=== PATIENT | female | born 1985 | race Caucasian/White ===

== ENCOUNTER 2017-06-01 06:06 | Day surgery (SDC) | payer MEDICAID, SELFPAY ==
[2017-06-01] VITALS (7 sets, daily range): BP systolic 92–121; BP diastolic 65–82; PULSE 55–96; RESP 16–18; TEMP 36.7–37.1; O2SAT 98–100; BMI 17.9
[2017-06-01 06:55] LABS: Hematocrit 38.9 % (37-47); Hemoglobin 13.1 g/dl (12.0-15.0); Mean Corp Hgb Conc 33.7 g/gl (32-36); Mean Corpuscular Hgb 31.3 pg (27.0-32.0); Mean Corpuscular Volume 92.8 fL (81-99); Mean Platelet Vol. 9.3 fl (6.2-12.0); Platelet Count 233 K/mm3 (150-450); RBC Distribution Width CV 12.2 % (11.6-14.6); RBC Distribution Width SD 40.8 fl (35.1-43.9); Red Blood Count 4.19 M/mm3 (4.2-5.4)
[2017-06-01 06:55] LABS: Internal QC Validated? YES +Cl - CLEAR BKGD; Pregnancy, Urine Negative Negative
[2017-06-01 06:58] LABS: Scan Indicated on CBC? Y/N NO
--- NOTE | 2017-06-01 07:30 | FALS_PTH ---
PATIENT: DEB MALDONADO LOC: [facility] U#:[id number] AGE/SX: 31/F ROOM: RE06/01/[address]: Dr. Elsa Fry MD : 1985 BED: DIS: 06/01/2017 SPEC #: [id number] RECD: 06/01/17 11:35 STATUS: NEFTALI UMER #: [id number] CAS: 06/01/17 07:[address]: Elsa Fry DEPT: SURGICAL PATHOLOGY RECD BY: Natan Pruett ENTERED: 06/01/17 12:48 SP TYPE: FALL TUBES OTHR DR: Fuentes Mariee III, MD Tissues: Fallopian tube Procedures: Surgery Specimen Level IV HEADER OPERATION: Laparoscopic salpingectomy, bilateral PRE-OP DIAGNOSIS: Sterilization TISSUE SUBMITTED: Bilateral fallopian tubes MICROSCOPIC DIAGNOSIS Right and left fallopian tubes, bilateral salpingectomies: Complete cross-sections of fallopian tubes with no pathologic change. Benign paratubal cysts. AM:yury 06/02/17 MICROSCOPIC DESCRIPTION Slides are reviewed. GROSS DESCRIPTION Received is one container labeled with the patient's name and designated bilateral fallopian tubes. The specimen consists of two fallopian tubes with an average length of 6 cm and has an average diameter of 0.7 cm. Both fallopian tubes have normal fimbriated ends. No mass lesions are identified. One fallopian tube is inked in blue ink. Also present free in the container are what appear to be fragments of fallopian tubes and smooth, glistening cysts containing clear fluid. The cysts range in size from 0.8 to 1.2 cm. The fragments of fallopian tubes range in size from 1 to 3 cm in greatest dimension. Field Hockey Coach sections are submitted in one cassette. / AM:yury 06/01/17 TC:5 CPT: 70360 x2
--- NOTE | 2017-06-01 07:45 | PCM.DC.TUB ---
Discharge Diet: No Restrictions - Increase fluid intake for the next 48 hours. Discharge Activity: Return to Normal Activity, May Drive - when you are no longer taking pain/narcotic meds., May Shower, May Take a Tub Bath - in 7 days Return to work on:: 06/03/17 May shower in (days): 1 May resume sexual activity in: 1 week Additional Activity Instructions:: Ambulate often the next week after surgery. Nothing in the vagina for 5 days. Call your doctor if your incision/area has: Continuous Slow Oozing, Sudden Increased Bleeding, Increased Pain/ Swelling, Increased Redness, Foul Smelling Discharge Call your doctor if you observe: Fever of 101 or Higher Cleanse incision/area with: Soap & Water, - - Your incisions have skin glue that can get wet. Leave it on for at least 10 days Allergies/Adverse Reactions: Allergies bacitracin [From Neosporin ([id number]-yix-[id number])] Allergy (Verified 05/25/17 08:42) Rash neomycin [From Neosporin (hxz-prp-xhing)] Allergy (Verified 05/25/17 08:42) Rash Penicillins Allergy (Verified 05/25/17 08:41) Hives polymyxin B [From Neosporin (ufq-mtw-yecjw)] Allergy (Verified 05/25/17 08:42) Rash hydrocodone [From Vicodin] Adverse Reaction (Verified 05/25/17 08:42) Vomiting BAND AID Allergy (Uncoded 05/25/17 08:42) Rash Medications to take at Discharge Ibuprofen 200 mg PO PRN PRN 05/25/17 Primary Care Physician: Fuentes Mariee III, MD [Primary Care Provider] - Please Follow Up With: Elsa Fry MD - [phone] When: as scheduled or as needed
[2017-06-01] MEDS: Bupivacaine Mpf 0.5% 30 ML VIAL (07:55)
--- NOTE | 2017-06-01 08:21 | OP.PCM_ITS ---
Report of Operation Date of Procedure: 06/01/17 Pre-Operative Diagnosis: sterilization request Post-Operative Diagnosis: same Surgery/Procedure Performed:: Laparoscopic bilateral salpingectomy Description of Surgical Findings:: Normal-appearing uterus tubes and ovaries experimental mechanic: None Type of Anesthesia:: General Anesthesiologist: Arias Perdomo Special Medications: None Specimen's removed: Bilateral tubes Drains: None Estimated Blood Loss (mL): 10cc Fluids Replaced: 1100cc Description of Procedure: The patient was taken to the operating room where she was prepped and draped in the dorsolithotomy position. A weighted speculum was placed in the vagina and the anterior lip of the cervix was grasped with a tenaculum. The Judy uterine manipulator was placed and the remainder of the instruments were removed from the vagina. Attention was turned to the abdomen. All port sites were infiltrated with 0.5% Marcaine before skin incisions were made. A 5 mm intraumbilical incision was made. The anterior abdominal wall was tented up with 2 towel clamps while a 5 mm blade less trocar and sleeve were directly inserted. Intraperitoneal placement was confirmed with the laparoscope. The pneumoperitoneum was created and the underlying abdominal contents were intact. The patient was placed in Trendelenburg. A left lower quadrant port was placed under direct visualization lateral to the inferior epigastric vessels. The alligator grasper was placed through the midline approximately 3 cm above the symphysis pubis. The bowel was swept away and the above findings were noted. The LigaSure device was used to clamp seal and transect the antimesenteric portions of the right tube to the cornual insertion of the uterus. The tube was amputated from the uterus and the pedicles were all confirmed to be hemostatic. The same procedure was performed on the contralateral side. The specimens were brought out through a 5 mm port. The pedicles were again examined and found to be hemostatic. The lateral port was removed under direct visualization and no active bleeding was noted. The pneumoperitoneum was released. The skin incisions were closed with Monocryl suture in a subcuticular fashion and skin glue . The vaginal instruments were removed and the vaginal sweep was completed by me. The procedure was performed by me with assistance other than as dictated above. All sponge and needle counts were correct and the patient was taken to the recovery room in stable condition. Grafts/Implants Used: None - Complications None - Admit VTE Documentation VTE Present on Admission: No VTE Mechan Device Prophylaxis: SCD's VTE Pharm Prophylaxis ordered?: No Reason prophylaxis not ordered:: Procedure Not Indicated
== END 2017-06-01 09:33 | disposition home or self-care (01) ==
LOC: SDC 06:07 → AC 06:09
PROVIDERS: Anesthesiology; Family Provider Family Medicine; PCP Family Medicine; Visit Provider Obstetrics & Gynecology
PROC: (CPT 58661; principal; 2017-06-01 07:15)
DX: Z30.2 Encounter for sterilization (principal); N83.8 Other noninflammatory disorders of ovary, fallopian tube and broad ligament; D64.9 Anemia, unspecified; F17.210 Nicotine dependence, cigarettes, uncomplicated
CPT/HCPCS: 58661; 36415; 81025; 85027; 88302; 88305; J7120; J2405

== ENCOUNTER 2019-12-09 11:50 | Emergency (ER) | payer MEDICAID, SELFPAY ==
[2019-12-09 11:52] VITALS: BP 137/96; PULSE 64; RESP 16; TEMP 36.6; O2SAT 100; BMI 17.8
--- NOTE | 2019-12-09 13:27 | CT_ITS ---
STUDY: CT BRAIN WITHOUT CONTRAST REASON FOR EXAM: Female, 34 years old. CHRONIC LANDIS/WORSE WITH CYCLE RADIATION DOSAGE (If Supplied By Facility): CTDIvol = ( 60.81 ) mGy, DLP = ( 1044.28 ) mGycm TECHNIQUE: Transaxial CT imaging of the brain was performed without administration of intravenous contrast material. Individualized dose optimization techniques were used for this CT. COMPARISON: No relevant priors. FINDINGS: Normal soft tissue structures. Normal calvarium. Normal size ventricles and extra-axial spaces for the patient''s age. Normal white matter tracts of the cerebral hemispheres. Normal basal ganglia and thalami. Normal brainstem. Normal cerebellum. There is no intracranial hemorrhage. There are no findings of an acute ischemic infarction. Normal visualized paranasal sinuses. CT/Brain/Head without Contrast IMPRESSION: Normal unenhanced CT scan of the brain. Electronically Signed: Tae Hickman, at 14:59 EDT , Service support ,
[2019-12-09] MEDS: 0.9% Normal Saline 1,000 ML 999 ML IV (13:56)
[2019-12-09] MEDS: DiphenhydrAMINE 50 MG/ML Syringe IV (13:56)
[2019-12-09] MEDS: proCHLORPERazine 10 MG/2 ML Vial IV (13:57)
[2019-12-09] MEDS: Ketorolac 15 MG/ML Vial IV (13:57)
--- NOTE | 2019-12-09 14:06 | ED.VIS.GEN ---
History of Present Illness Chief Complaint: Headache Informant: Patient Onset: Days Context: Gradual Onset Timing: Continuous Current Severity: Moderate Maximum Severity: Moderate Narrative: Patient is a 34-year-old female with medical history significant for chronic pelvic pain who follows with [facility], recently started on control, who presents to the emergency department headache. Patient states she is had a dull headache for the past 3 days. She states that she does get headaches like this, but is never been this significant. She has been taking Midol with no improvement. She states that she has been nauseated. She describes photophobia and phonophobia. She denies any fevers or chills. She is not found anything that improve the symptoms. She states she is otherwise been in her normal state of health. Prior similar symptoms: Yes Recent Illness/Hospitalization: No Past Medical History - Allergies and Home Meds Allergies/Adverse Reactions: Allergies bacitracin [From Neosporin (wgv-yui-whbmv)] Allergy (Verified 12/09/19 11:56) Rash neomycin [From Neosporin (daa-grw-rnewk)] Allergy (Verified 12/09/19 11:56) Rash Penicillins Allergy (Verified 12/09/19 11:56) Hives polymyxin B [From Neosporin (ujf-uvd-vaekh)] Allergy (Verified 12/09/19 11:56) Rash hydrocodone [From Vicodin] Adverse Reaction (Verified 12/09/19 11:56) Vomiting BAND AID Allergy (Uncoded 12/09/19 11:56) Rash Primary Care Physician: Fuentes Mariee III, MD [[facility]] - Prior records reviewed: Yes Past Medical History: None Surgical History: noncontributory Smoking Status: Current every day smoker Review of Systems General: Denies: Chills, Fever, Sweats Eyes: Denies: Visual changes - bilaterally, Diplopia ENT: Denies: Rhinorrhea, Sore throat Cardiovascular: Denies: Chest pain, Palpitations Respiratory: Denies: Dyspnea, Cough, Dyspnea on exertion Gastrointestinal: Reports: Nausea. Denies: Abdominal pain, Vomiting, Diarrhea, Melena, Hematochezia Genitourinary: Denies: Dysuria, Hematuria, Frequency Musculoskeletal: Denies: Back pain, Extremity Pain Skin: Denies: Rash, Wounds Neurological: Reports: Headache. Denies: Weakness, Numbness Physical Exam Vital Signs/Narrative: Vital Signs Temp Pulse Resp BP Pulse Ox 12/09/19 11:52 97.8 F 64 16 137/96 H 100 Inital Vital Signs reviewed: Yes General: Well nourished, Well developed, No Acute Distress Head: Normocephalic, Atraumatic Eyes: Perrl, EOMI ENT: Moist mucous membranes, No rhinorrhea Neck: Supple, Nontender Cardiovascular: Regular rate, Regular rhythm, No murmurs Respiratory: No distress, CTA bilaterally, Chest nontender Abdomen: Soft, Nontender, Nondistended, Normal bowel sounds Back: Nontender, Normal Inspection Extremities: Nontender, No edema Skin: Normal color, No rash Neurological: Alert, Oriented x3, Cranial nerves II-XII grossly intact, Normal Strength, Normal Sensation Psychological: Normal affect, Normal Mood Diagnostic/Tx/Re-eval Clinical Impression(s) from Imaging Studies Brain CT 12/09/19 13:27 IMPRESSION: Normal unenhanced CT scan of the brain. Electronically Signed: Tae Marylou, at 14:59 EDT , Service support , - Medical Decision Making The patient symptoms do seem most consistent with migraine. She is not meningitic or encephalopathic. However, given the duration of her headache I did want to rule out dangerous intracranial process. Noncontrast CT was obtained was unremarkable. The patient was treated with migraine abortive medications. She is feeling markedly improved. At this point, I do feel that she is safe for discharge. She is comfortable with this plan of care. Impression 1. Migraine-resolved ED Disposition - Plan for ED Patient: Disposition: Home or Assisted Living Instructions: ED, Migraine (Classical) Prescriptions: Acetaminophen/Butalbital/Caffe [Fioricet] 1 tab PO Q4H PRN PRN #20 tab PRN Reason: Headache Prescription Printed Referrals: Fuentes Mariee III, MD [[facility]] -
[2019-12-09 15:34] VITALS: BP 99/54; PULSE 62; RESP 17; O2SAT 99
--- NOTE | 2019-12-09 15:34 | ED.RN ---
IV DC'ED, CATHETER INTACT, SMALL GAUZE DRESSING PLACED. DISCHARGE INSTRUCTIONS GIVEN TO AND REVIEWED WITH PATIENT, PATIENT DENIES QUESTIONS OR CONCERNS AND VOICES UNDERSTANDING OF DISCHARGE INSTRUCTIONS. PT AMBULATES OUT OF ROOM WITHOUT DIFFICULTY.
== END 2019-12-09 15:35 | disposition home or self-care (01) ==
LOC: ED 14:49
PROVIDERS: Emergency Provider Emergency Medicine; PCP Nurse Practitioner Family
DX: R51.9 Headache, unspecified (principal); F17.200 Nicotine dependence, unspecified, uncomplicated
CPT/HCPCS: 70450; 96361; 96374; 96375; 99282; J7030; A4216

== ENCOUNTER 2022-12-12 00:55 | Emergency (ER) | payer MEDICAID, SELFPAY ==
[2022-12-12 00:55] VITALS: BP 122/88; PULSE 64; RESP 18; TEMP 36.6; O2SAT 97; BMI 18.9
--- NOTE | 2022-12-12 01:19 | EDS_ITS ---
HPI History of Present Illness Chief Complaint: Dental Informant: patient Onset/Context/Timing Onset: Today Narrative Narrative: Patient states she had both maxillary wisdom tooth extracted earlier today, and the 1 in the left keeps bleeding. She will get a big clot, she will bite down on gauze but it pulls the clot away and then it will rebleed and start the process over. She denies having any significant pain or fevers/chills. She takes no antiplatelet or anticoagulant medications. PFSH PFSH Medical History no medical history no medical history Home Medications ibuprofen 200 mg capsule 200 mg PO PRN PRN Pain 05/25/17 [History Last Taken Unknown] zxuqiexexl-ejdwyodnsvqvy-gylnwrdl 50 mg-325 mg-40 mg tablet 1 tab PO Q4H PRN PRN Headache #20 tabs 12/09/19 [Rx Last Taken Unknown] Allergy/AdvReac Type Severity Reaction Status Date / Time bacitracin Allergy Rash Verified 12/12/22 01:00 [From Neosporin (kmg-ykt-fddng)] neomycin Allergy Rash Verified 12/12/22 01:00 [From Neosporin (fzg-ifb-cnkkr)] Penicillins Allergy Hives Verified 12/12/22 01:00 polymyxin B Allergy Rash Verified 12/12/22 01:00 [From Neosporin (dtj-lek-lpmtg)] adhesive AdvReac Rash Verified 12/12/22 01:00 hydrocodone [From Vicodin] AdvReac Vomiting Verified 12/12/22 01:00 Social History Smoking Status: Current every day smoker tobacco type: smokeless tobacco ROS ROS ED Constitutional Constitutional ED: Denies chills or fever(s) Eyes Eyes: Denies change in vision or double vision ENT ENT ED: Reports other Details: Bleeding see HPI ; Denies dental pain, sinus pain or throat swelling Cardiovascular Cardiovascular: Denies chest pain or palpitations Respiratory/Chest Respiratory/Chest: Denies cough or dyspnea Integumentary Denies abscess or rash Neurologic Neurologic: Denies headache(s), paresthesias or weakness Psychiatric Psychiatric: Reports anxiety; Denies suicidal thoughts EXAM Physical Exam Const Vital Signs: 12/12/22 00:55 Temperature 97.9 F Temperature Source Temporal Pulse Rate 64 Respiratory Rate 18 Blood Pressure 122/88 H Blood Pressure Mean 99 Pulse Ox 97 Oxygen Delivery Method Room Air Positive well nourished and well developed General Appearance ED: well developed and NAD HEENT HEENT Narrative: Large clot with minimal active bleeding left maxillary wisdom tooth extraction site. On the right there appears to be a small clot no active bleeding. She has no trismus, no signs of infection. Face and Sinus: sinuses nontender Throat: posterior oropharynx normal Eyes PERRL and EOMs intact bilaterally Neck no lymphadenopathy and supple Resp normal respiratory effort Neuro oriented x3 and CN's II-XII intact bilaterally Sensorium / Orientation: alert Gait (Neuro): normal gait Psych mental status grossly normal and thought process normal Skin no rashes or lesions noted and no wounds MDM MDM MDM Narrative Medical decision making narrative: Using [employer] suction device I removed the clot from extraction site tooth #16, active bleeding after this was minimal, the socket appears to be clean and without signs of infection. While suctioning out excess blood, I then topically placed a small piece of Surgifoam covered by a nonstick Telfa pad curled up and had the patient bite down and apply pressure which provided poor hemostasis. We did not have any HemCon pads in our dental box, which is meant for this compl aint. I then suctioned everything out, without clots this time, placing a fresh piece of Surgifoam within the socket and putting small gauze on it, this provided better hemostasis but there is still some mild bleeding, so this was augmented with a new piece of gauze soaked in LET. She did not want to be observed further and was okay going home with this, given appropriate instructions on when to return. Discharge Plan Triage Chief Complaint: Dental ED Provider: Singh Rosa Dx/Rx/DC Orders Clinical Impression: Hemorrhage of tooth socket Instructions: ED Post Op Wound Check, Bleeding Prescriptions: No Action ibuprofen 200 MG capsule 200 mg PO PRN PRN (Reason: Pain) xafuenjxjk-rpjhjbczvdodm-vvgu 1 TABLET tablet 1 tab PO Q4H PRN PRN (Reason: Headache) Qty: 20 0RF Primary Care Provider: Jomar Zacarias NP Referrals: Jomar Zacarias NP, [employer]IOLOGY PROFESSOR-C [Primary Care Provider] - Dentist,Your [STAFF PHYSICIAN] - As Needed Disposition Disposition: Home, Self Care
[2022-12-12] MEDS: Lidocaine/Epi/Tetracaine 50 ML 1 APPLIC TOPICAL (02:58)
== END 2022-12-12 03:00 | disposition home or self-care (01) ==
PROVIDERS: Emergency Provider Emergency Medicine; PCP Nurse Practitioner Family; Visit Provider Emergency Medicine
DX: K91.840 Postprocedural hemorrhage of a digestive system organ or structure following a digestive system procedure (principal); F17.220 Nicotine dependence, chewing tobacco, uncomplicated
CPT/HCPCS: 99282

== ENCOUNTER 2023-04-11 15:07 | Emergency (ER) | payer MEDICAID, SELFPAY ==
[2023-04-11 15:09] VITALS: BP 115/77; PULSE 74; RESP 14; TEMP 36.8; O2SAT 98; BMI 18.7
--- OUTSIDE RECORDS SUMMARY | 2023-04-11 15:32 | XMS RPT_ITS | CCD ---
Author Name Unknown Address [address] [place] [address] Organization [facility] Care Team Providers Care Polymer Chemist Name Role Phone Rell MUNOZN.STEELSCOPE OPERATOR, DNP, Jomar Primary Care Provider Unavailable Primary Care Provider Unavailabl e Unavailable Primary Care Provider Unavailabl e Unavailable Primary Care Provider Unavailabl e CYNDI TRUJILLO Attending Unavailable JOECLYNE GANT Referring Unavailable JOCELYNE GANT Attending Unavailable JOCELYNE GANT Attending Unavailable LIZABETH PARK Attending Unavailable LIZABETH PARK Referring Unavailable SARTHAK, LIZABETH Referring Unavailable LIZABETH PARK Attending Unavailable CYNDI TRUJILLO Referring Unavailable RODNEY BENAVIDES Primary Care Unavailable Rodney Benavides MD Primary Care Provider Allergies Allergy Classification Reported Allergen(s) Allergy Type Date of Onset Reaction(s) Facility (20 sources) Acetaminophen / HYDROcodone; Translations: [HYDROCODONE-ACET AMINOPHEN] Drug Allergy [address] [facility] Work Phone: (5 sources) Adhesive agent; Translations: [ADHESIVE] Drug Allergy [address] [facility] (5 sources) Penicillins; Translations: [PENICILLINS] Propensity to adverse reactions [address] [facility] Work Phone: (15 sources) seasonal [Other] Propensity to adverse reactions [address] [facility] Work Phone: (17 sources) Adhesive agent Drug Allergy [address] [facility] (17 sources) Penicillins Propensity to adverse reactions [address] [facility] Work Phone: (1 source) OTHER; Translations: [OTHER] Propensity to adverse reactions (disorder) 7 [facility] Repository Medications Current Medications Medication Drug Class(es) Dates Sig (Normalized) Sig (Original) doxycycline monohydrate 100 mg oral tablet (1 source) Tetracycline-clas s Drug Start: 10-17-2021 End: 10-24-2021 take 1 tablet by mouth twice daily doxycycline monohydrate 100 mg tablet Take 1 tablet by mouth twice daily for 7 days. 14 tablet 0 10/17/2021 10/24/2021 Active Completed/Discontinued Medications Medication Drug Class(es) Dates Sig (Normalized) Sig (Original) acetaminophen 500 mg oral tablet (12 sources) Start: 02-28-2022 End: 04-09-2023 take 2 tablets by mouth every six hours acetaminophen (TYLENOL EXTRA STRENGTH) 500 mg tablet Take 2 tablets by mouth every 6 hours. 60 tablet 0 02/28/2022 04/09/2023 Discontinued Problems Active Problems Problem Classification Problem Date Documented Date Episodic/Chronic Adjustment disorders (20 sources) Mixed anxiety and depressive disorder; Translations: [Adjustment disorder with mixed anxiety and depressed mood] Onset: 02-20-2015 02-20-2015 Chronic Alcohol-related disorders (15 sources) Alcohol abuse; Translations: [Alcohol abuse, uncomplicated] Onset: 03-01-2008 03-01-2008 Chronic Anxiety disorders (20 sources) Panic disorder without agoraphobia; Translations: [Panic disorder [episodic paroxysmal anxiety]] Onset: 03-01-2008 07-28-2017 Chronic Blindness and vision defects (1 source) Bilateral regular astigmatism; Translations: [Regular astigmatism, bilateral] Episodic Disorders of lipid metabolism (1 source) Mixed hyperlipidemia; Translations: [Mixed hyperlipidemia] 04-09-2023 Chronic Genitourinary symptoms and ill-defined conditions (2 sources) Increased frequency of urination; Translations: [Frequency of micturition] 09-09-2022 Episodic Headache; including migraine (20 sources) Migraine without aura, not refractory ; Translations: [Migraine without aura, not intractable, without status migrainosus] Onset: 04-27-2015 04-27-2015 Chronic Immunizations and screening for infectious disease (1 source) Contact with or exposure to other viral diseases; Translations: [Exposure to 2019 novel coronavirus] Episodic Inflammation; infection of eye (except that caused by tuberculosis or sexually transmitteddisease) (1 source) Bilateral punctate keratitis of eyes; Translations: [Punctate keratitis, bilateral] Chronic Menstrual disorders (20 sources) Dysmenorrhea; Translations: [Dysmenorrhea, unspecified] Onset: 12-16-2019 12-16-2019 Chronic Nausea and vomiting (1 source) Nausea and vomiting; Translations: [Nausea with vomiting, unspecified] Episodic Nonmalignant breast conditions (4 sources) Lump of axillary tail of left breast; Translations: [Unspecified lump in axillary tail of the left breast] Onset: 01-13-2023 12-18-2022 Episodic Other and ill-defined heart disease (20 sources) Atrial septal aneurysm; Translations: [Aneurysm of heart] Onset: 07-11-2019 07-11-2019 Chronic Other and unspecified benign neoplasm (1 source) Leiomyoma; Translations: [Benign neoplasm of connective and other soft tissue, unspecified] Episodic Other connective tissue disease (1 source) Muscle tension pain; Translations: [Myalgia, unspecified site] 04-09-2023 Episodic Other diseases of bladder and urethra (1 source) Overactive bladder; Translations: [Overactive bladder] 01-13-2023 Chronic Other female genital disorders (14 sources) Abnormal uterine bleeding; Translations: [Abnormal uterine and vaginal bleeding, unspecified] Onset: 02-27-2022 Chronic Other lower respiratory disease (2 sources) Cough; Translations: [Cough] Episodic Other screening for suspected conditions (not mental disorders or infectious disease) (2 sources) Other abnormal and inconclusive findings on diagnostic imaging of breast; Translations: [Patient encounter status] Onset: 03-03-2023 04-09-2023 Episodic Other upper respiratory infections (1 source) Acute sinusitis; Translations: [Acute sinusitis, unspecified] Episodic Residual codes; unclassified (1 source) Postoperative state; Translations: [Other specified postprocedural states] Episodic Spondylosis; intervertebral disc disorders; other back problems (2 sources) Cervicalgia; Translations: [Neck pain] Onset: 04-09-2023 04-09-2023 Episodic Viral infection (1 source) Viral disease; Translations: [Viral infection, unspecified] Episodic Past or Other Problems Problem Classification Problem Date Documented Da te Episodic/Chronic Abdominal pain (20 sources) Pain in female pelvis; Translations: [Pelvic and perineal pain] Onset: 02-27-2022 Episodic Administrative/social admission (20 sources) Family history of alcoholism; Translations: [Alcoholism and drug addiction in family] Onset: 03-01-2008 03-01-2008 Episodic Benign neoplasm of uterus (13 sources) Intramural leiomyoma of uterus; Translations: [Intramural leiomyoma of uterus] Onset: 02-27-2022 02-27-2022 Episodic Substance-related disorders (20 sources) Marijuana user; Translations: [Cannabis use, unspecified, uncomplicated] Onset: 02-21-2016 02-26-2016 Episodic Results Test Name Value Interpretation Reference Range Facil ity Vital Signs Date Time Vital Sign Value Performing Clinician Conner welsh 04-09-2023 08:23-0500 Body weight 47.17 kg Cyndi Trujillo APRN.DONTAE Work Phone: [facility] 04-09-2023 08:23-0500 Diastolic blood pressure 70 mm[Hg] Cyndi Trujillo APRN.STEELSCOPE OPERATOR Work Phone: [facility] 04-09-2023 08:23-0500 Heart rate 72 /min Cyndi Trujillo APRN.STEELSCOPE OPERATOR Work Phone: [facility] 04-09-2023 08:23-0500 Respiratory rate 16 /min Cyndi Trujillo APRN.STEELSCOPE OPERATOR Work Phone: [facility] 04-09-2023 08:23-0500 SaO2% (BldA) [Mass fraction] 98 % Cyndi Trujillo STEWARD/STEWARDESS BATH.STEELSCOPE OPERATOR Work Phone: [facility] 04-09-2023 08:23-0500 Systolic blood pressure 110 mm[Hg] Cyndi Trujillo STEWARD/STEWARDESS BATH.STEELSCOPE OPERATOR Work Phone: [facility] 04-02-2023 12:24-0500 Body temperature 99 [degF] Albertina Owen PA-C Work Phone: [facility] 04-02-2023 12:24-0500 Body weight 49.35 kg Albertina Owen PA-C Work Phone: [facility] 04-02-2023 12:24-0500 Diastolic blood pressure 76 mm[Hg] Albertina Bogner PA-C Work Phone: [facility] 04-02-2023 12:24-0500 Heart rate 77 /min Albertina Bogner PA-C Work Phone: [facility] 04-02-2023 12:24-0500 Respiratory rate 16 /min Albertina Bogner PA-C Work Phone: [facility] 04-02-2023 12:24-0500 SaO2% (BldA) [Mass fraction] 97 % Albertina Bogner PA-C Work Phone: [facility] 04-02-2023 12:24-0500 Systolic blood pressure 116 mm[Hg] Albertina Bogner PA-C Work Phone: [facility] 01-13-2023 13:03-0500 Body height 160 cm Lizabeth Sarthak STEWARD/STEWARDESS BATH.STEELSCOPE OPERATOR Work Phone: [facility] 01-13-2023 13:03-0500 Body weight 48.44 kg Lizabeth Sarthak STEWARD/STEWARDESS BATH.STEELSCOPE OPERATOR Work Phone: [facility] 01-13-2023 13:03-0500 Diastolic blood pressure 70 mm[Hg] Lizabeth Linwood STEWARD/STEWARDESS BATH.STEELSCOPE OPERATOR Work Phone: [facility] 01-13-2023 13:03-0500 Systolic blood pressure 106 mm[Hg] Lizabeth Linwood STEWARD/STEWARDESS BATH.STEELSCOPE OPERATOR Work Phone: [facility] 12-18-2022 13:31-0500 Body weight 47.08 kg Lizabeth Sarthak STEWARD/STEWARDESS BATH.STEELSCOPE OPERATOR Work Phone: [facility] 12-18-2022 13:31-0500 Diastolic blood pressure 68 mm[Hg] Lizabeth Sarthak STEWARD/STEWARDESS BATH.STEELSCOPE OPERATOR Work Phone: [facility] 12-18-2022 13:31-0500 Systolic blood pressure 100 mm[Hg] Lizabeth Sarthak STEWARD/STEWARDESS BATH.STEELSCOPE OPERATOR Work Phone: [facility] 09-09-2022 10:21-0400 Body temperature 97.9 [degF] Mahogany Athy PA-C Work Phone: [facility] 09-09-2022 10:21-0400 Body weight 48.08 kg Mahogany Athy PA-C Work Phone: [facility] 09-09-2022 10:21-0400 Diastolic blood pressure 78 mm[Hg] Mahogany Athy PA-C Work Phone: [facility] 09-09-2022 10:21-0400 Heart rate 69 /min Mahogany Athy PA-C Work Phone: [facility] 09-09-2022 10:21-0400 Respiratory rate 16 /min Mahogany Athy PA-C Work Phone: [facility] 09-09-2022 10:21-0400 SaO2% (BldA) [Mass fraction] 100 % Mahogany Athy PA-C Work Phone: [facility] 09-09-2022 10:21-0400 Systolic blood pressure 118 mm[Hg] Mahogany Athy PA-C Work Phone: [facility] 03-14-2022 08:43-0500 Body height 161.8 cm Ava Lang STEWARD/STEWARDESS BATH.STEELSCOPE OPERATOR Work Phone: [facility] 03-14-2022 08:43-0500 Body weight 50.8 kg Ava Lang STEWARD/STEWARDESS BATH.STEELSCOPE OPERATOR Work Phone: [facility] 03-14-2022 08:43-0500 Diastolic blood pressure 78 mm[Hg] Ava Jerrybach STEWARD/STEWARDESS BATH.STEELSCOPE OPERATOR Work Phone: [facility] 03-14-2022 08:43-0500 Systolic blood pressure 102 mm[Hg] Ava Haibach STEWARD/STEWARDESS BATH.STEELSCOPE OPERATOR Work Phone: [facility] 02-11-2022 14:33-0500 Body height 161.8 cm Juan A Manuel MD Work Phone: [facility] 02-11-2022 14:33-0500 Body weight 51.53 kg Juan A Manuel MD Work Phone: [facility] 02-11-2022 14:33-0500 Diastolic blood pressure 82 mm[Hg] Juan A Manuel MD Work Phone: [facility] 02-11-2022 14:33-0500 Systolic blood pressure 127 mm[Hg] Juan A Manuel MD Work Phone: [facility] 12-05-2021 12:57-0400 Body temperature 96.69 [degF] Saira Stover STEWARD/STEWARDESS BATH.STEELSCOPE OPERATOR Work Phone: [facility] 12-05-2021 12:57-0400 Body weight 49.8 kg Saira Stover STEWARD/STEWARDESS BATH.STEELSCOPE OPERATOR Work Phone: [facility] 12-05-2021 12:57-0400 Diastolic blood pressure 72 mm[Hg] Saira Stover STEWARD/STEWARDESS BATH.STEELSCOPE OPERATOR Work Phone: [facility] 12-05-2021 12:57-0400 Heart rate 75 /min Saira Stover STEWARD/STEWARDESS BATH.STEELSCOPE OPERATOR Work Phone: [facility] 12-05-2021 12:57-0400 Respiratory rate 21 /min Saira Stover STEWARD/STEWARDESS BATH.STEELSCOPE OPERATOR Work Phone: [facility] 12-05-2021 12:57-0400 SaO2% (BldA) [Mass fraction] 99 % Saira Stover STEWARD/STEWARDESS BATH.STEELSCOPE OPERATOR Work Phone: [facility] 12-05-2021 12:57-0400 Systolic blood pressure 100 mm[Hg] Saira Stover STEWARD/STEWARDESS BATH.STEELSCOPE OPERATOR Work Phone: [facility] 10-17-2021 08:14-0400 Body temperature 98.01 [degF] Sakshi Rebollar STEWARD/STEWARDESS BATH.STEELSCOPE OPERATOR Work Phone: [facility] 10-17-2021 08:14-0400 Body weight 48.72 kg Sakshi Rebollar STEWARD/STEWARDESS BATH.STEELSCOPE OPERATOR Work Phone: [facility] 10-17-2021 08:14-0400 Diastolic blood pressure 68 mm[Hg] Sakshi Rebollar STEWARD/STEWARDESS BATH.STEELSCOPE OPERATOR Work Phone: [facility] 10-17-2021 08:14-0400 Heart rate 93 /min Sakshi Rebollar STEWARD/STEWARDESS BATH.STEELSCOPE OPERATOR Work Phone: [facility] 10-17-2021 08:14-0400 Respiratory rate 18 /min Sakshi Rebollar STEWARD/STEWARDESS BATH.STEELSCOPE OPERATOR Work Phone: [facility] 10-17-2021 08:14-0400 SaO2% (BldA) [Mass fraction] 98 % Sakshi Rebollar STEWARD/STEWARDESS BATH.STEELSCOPE OPERATOR Work Phone: [facility] 10-17-2021 08:14-0400 Systolic blood pressure 114 mm[Hg] Sakshi Rebollar STEWARD/STEWARDESS BATH.STEELSCOPE OPERATOR Work Phone: [facility] 05-30-2021 12:47-0400 Body temperature 96.69 [degF] Sakshi Rebollar STEWARD/STEWARDESS BATH.STEELSCOPE OPERATOR Work Phone: [facility] 05-30-2021 12:47-0400 Body weight 48.26 kg Sakshi Rebollar STEWARD/STEWARDESS BATH.STEELSCOPE OPERATOR Work Phone: [facility] 05-30-2021 12:47-0400 Diastolic blood pressure 76 mm[Hg] Sakshi Rebollar STEWARD/STEWARDESS BATH.STEELSCOPE OPERATOR Work Phone: [facility] 05-30-2021 12:47-0400 Heart rate 80 /min Sakshi Rebollar STEWARD/STEWARDESS BATH.STEELSCOPE OPERATOR Work Phone: [facility] 05-30-2021 12:47-0400 Respiratory rate 18 /min Sakshi Rebollar STEWARD/STEWARDESS BATH.STEELSCOPE OPERATOR Work Phone: [facility] 05-30-2021 12:47-0400 SaO2% (BldA) [Mass fraction] 99 % Sakshi Rebollar STEWARD/STEWARDESS BATH.STEELSCOPE OPERATOR Work Phone: [facility] 05-30-2021 12:47-0400 Systolic blood pressure 120 mm[Hg] Sakshi Rebollar STEWARD/STEWARDESS BATH.STEELSCOPE OPERATOR Work Phone: [facility] Encounters Encounter Date Encounter Type Care Provider Facility Start: 04-10-2023 Telephone encounter Cyndi Quiñones joby STEWARD/STEWARDESS BATH.[place] Work Phone: [facility] Procedures Date Procedure Procedure Detail Performing Clinician Start: 01-13-2023 Digital breast tomosynthesis bilateral Lizabeth Park STEWARD/STEWARDESS BATH.[place] Work Phone: Start: 01-13-2023 Us breast uni real t jd with image limited Lizabeth Park STEWARD/STEWARDESS BATH.[place] Work Phone: Start: 09-09-2022 Urnls dip stick/tabl et rgnt auto w/o microscopy Mahogany Guadarrama PA-C Work Phone: H/O: hysterectomy S/P hysterectomy Geovanny Lang STEWARD/STEWARDESS BATH.[place] Work Phone: Plan of Treatment Date Care Activity Detail Author Start: 07-01-2026 Urine microalbumin profile [facility] Start: 04-04-2026 HPV TESTING HPV TESTING [facility] Start: 04-04-2026 PAP TESTING PAP TESTING [facility] Start: 04-04-2026 Screening for malign ant neoplasm of cervix [facility] Start: 04-08-2024 Covid-19 Vaccine ( season) Covid-19 Vaccine ( season) [facility] Immunizations Immunization Date Immunization Notes Care Provider Stephan olivares 07-10-2020 COVID-19 vaccine, fu ll dose (MODERNA) Jomar Zacarias APRN.[employer] Work Phone: [facility] Work Phone: 06-12-2020 COVID-19 vaccine, fu ll dose (MODERNA) Jomar Zacarias APRN.[employer] Work Phone: [facility] Work Phone: 07-01-2016 tetanus toxoid, redu romero diphtheria toxoid, and acellular pertussis vaccine, adsorbed Jomar Zacarias APRN.[employer] Work Phone: [facility] 11-26-2015 influenza virus vaccine, unspecified formulation Lizabeth Park STEWARD/STEWARDESS BATH.[facility] Work Phone: [facility] 04-07-2009 varicella virus vaccine Luke Zacarias APRN.[facility] Work Phone: [facility] Work Phone: 03-06-2009 hepatitis B vaccine, pediatric or pediatric/adolescent dosage Jomar Zacarias APRN.[facility] Work Phone: [facility] Work Phone: 03-06-2009 novel [id number], preservative-free, injectable Jomar Zacarias APRN.[facility] Work Phone: [facility] Work Phone: 03-06-2009 tetanus toxoid, redu romero diphtheria toxoid, and acellular pertussis vaccine, adsorbed Jomar Zacarias APRN.[facility] Work Phone: [facility] Work Phone: 03-06-2009 hepatitis B vaccine, unspecified formulation Sakshi Rebollar APRN.[facility] Work Phone: [facility] 01-22-2009 hepatitis B vaccine, adult dosage Jomar Zacarias APRN.[facility] Work Phone: [facility] Work Phone: 02-18-2008 influenza virus vaccine, whole virus Jomar Zacarias APRN.[facility] Work Phone: [facility] Work Phone: 09-24-1998 measles, mumps and rubella virus vaccine Jomar Zacarias APRN.[facility] Work Phone: [facility] Work Phone: 09-29-1991 diphtheria, tetanus toxoids and pertussis vaccine Jomar Zacarias APRN.[facility] Work Phone: [facility] Work Phone: 09-29-1991 trivalent poliovirus vaccine, live, oral Jomar Zacarias APRN.[facility] Work Phone: [facility] Work Phone: 10-05-1989 diphtheria, tetanus toxoids and pertussis vaccine Jomar Blaz STEWARD/STEWARDESS BATH.[facility] Work Phone: [facility] Work Phone: 10-05-1989 measles, mumps and rubella virus vaccine Jomar Blaz STEWARD/STEWARDESS BATH.[facility] Work Phone: [facility] Work Phone: 10-05-1989 trivalent poliovirus vaccine, live, oral Jomar Blaz STEWARD/STEWARDESS BATH.[facility] Work Phone: [facility] Work Phone: 06-26-1986 diphtheria, tetanus toxoids and pertussis vaccine Jomar Blaz STEWARD/STEWARDESS BATH.[facility] Work Phone: [facility] Work Phone: 05-05-1986 diphtheria, tetanus toxoids and pertussis vaccine Jomar Blaz STEWARD/STEWARDESS BATH.[facility] Work Phone: [facility] Work Phone: 05-05-1986 trivalent poliovirus vaccine, live, oral Jomar Blaz STEWARD/STEWARDESS BATH.[facility] Work Phone: [facility] Work Phone: 02-15-1986 diphtheria, tetanus toxoids and pertussis vaccine Jomar Blaz STEWARD/STEWARDESS BATH.[facility] Work Phone: [facility] Work Phone: 02-15-1986 trivalent poliovirus vaccine, live, oral Jomar Blaz STEWARD/STEWARDESS BATH.[facility] Work Phone: [facility] Work Phone: Payers Date Payer Category Payer Medicaid [id number] 2008 Medicaid [employer] [id number] 2008-Present [phone] [address] [place] [address] Medicaid [id number] 2008 Medicaid [id number] Social History Date Type Detail Facility Start: 02-09-1998 End: 04-09-2023 Tobacco smoking status NHIS Smokes tobacco daily [facility] Work Phone: Start: 02-09-1998 History of tobacco use Cigarette Smoker [facility] Work Phone: Start: 02-16-2012 End: 12-18-2022 Cigarettes smoked current (pack per day) - Reported 0.[address] [facility] Start: 02-16-2012 End: 01-13-2023 Tobacco use and exposure Smokeless tobacco non-user [facility] Work Phone: Start: 04-29-2021 End: 04-09-2023 Alcohol intake Current drinker of alcohol (finding) [facility] Start: 11-11-2019 End: 12-16-2019 History SDOH Alcohol Frequency [address] [facility] Start: 11-11-2019 End: 12-16-2019 History SDOH Alcohol Std Drinks [address] [facility] Start: 02-21-2016 History SDOH Alcohol Comment Occasionally, not while [facility] Start: 11-11-2019 History SDOH Social Connections Phone [address] [facility] Start: 11-11-2019 History SDOH Social Connections Living [address] [facility] Start: 11-11-2019 History SDOH Physical Activity DPW [address] [facility] Start: 11-11-2019 End: 12-16-2019 History SDOH Physical Activity MPS [address] [facility] Start: 11-11-2019 Education [address] [facility] Start: 05-09-2016 End: 10-17-2021 Tobacco Comment 4 cigarettes a day [facility] Start: 1985 Sex Assigned At Female [facility] Work Phone: Start: 06-07-2021 End: 06-17-2021 Exposure to SARS-CoV-2 (event) Unable to assess [facility] Work Phone: Start: 10-07-2021 End: 12-05-2021 Exposure to SARS-CoV-2 (event) Not sure [facility] Work Phone: Start: 02-05-2022 Tobacco Comment Vapes nicotine. [facility] Start: 02-05-2022 Alcohol Comment Occasionally [facility] Start: 09-09-2022 End: 12-18-2022 Tobacco use panel [facility] Start: 01-29-2021 Gender identity Identifies as female gender (finding) [facility] Work Phone: Start: 12-18-2022 End: 01-13-2023 Tobacco smoking status NHIS Ex-smoker [facility] Work Phone: Start: 02-09-1998 History of tobacco use Current smoker [facility] Work Phone: Do you belong to any clubs or organizations such as latter-day groups, unions, fraternal or athletic groups, or school groups? No [facility] Are you now , , , , never or living with a partner? Living with partner [facility] How often to you hav e a drink containing alcohol? Monthly or less [facility] How many standard dr inks containing alcohol do you have on a typical day? 1 or [address] [facility] How often do you hav e 6 or more drinks on 1 occasion? Never [facility] How hard is it for y ou to pay for the very basics like food, housing, medical care, and heating Somewhat hard [facility] Work Phone: Adult Depression Screening Assessment [address] [facility] Do you feel stress - tense, restless, nervous, or anxious, or unable to sleep at night because your mind is troubled all the time - these days [OSQ] To some extent [facility] (I/We) worried whedora er (my/our) food would run out before (I/we) got money to buy more. Sometimes true [facility] Work Phone: The food that (I/we) bought just didn't last, and (I/we) didn't have money to get more. Never true [facility] Work Phone: Start: 04-09-2023 Tobacco use and exposure User of smokeless tobacco [facility] Clinical Notes 09-22-2016 to 04-10-2023 Telephone Encounter - Erum Moon LPN - 04/10/2023 12:44 PM ESTTelephone Encounter - Cyndi Trujillo APRN.CNP - 04/10/2023 12:27 PM ESTPatient InstructionsPatient Instructions Note Date & Type Note [facility] 04-10-2023 Miscellaneous Notes Patient notified of results, verbalizes understanding of instructions. Pt stated she has only taken one dose of Prednisone. Erum Moon LPN Can you please call the patient and let her know that I reviewed her neck x-ray. X-ray shows some reversal of the curve of her cervical spine there is some mild arthritis noted as well. I know she messaged into the office due to ongoing pain. Can you please verify if she started the prednisone? If she is having severe pain this can cause nausea. She may consider having a consult with spine medicine for further evaluation. Cyndi Trujillo APRN.DONTAE documented in this encounter [facility] 04-09-2023 Note HNO ID: [id number] Author: RHONDA JAMIL RT(Kade) Service: Radiology Author Type: Technologist Type: Progress Notes Filed: 04/09/2023 09:04 Note Text: Radiology Service Progress Note PATIENT NAME: Peggy Fitzgerald DATE OF SERVICE: April 09, 2023 TIME: 8:55 AM PATIENT IDENTITY VERIFICATION COMPLETED USING TWO (2) IDENTIFIERS: Name and Date of confirmed by patient verbally. FALL SCREENING: Has the patient had 2 falls in the last year or 1 fall with injury or currently using an Ambulatory Assistive Device (Walker, Cane, Wheelchair, Crutches, etc.)? No PATIENT GENDER DATA: Female. status: : No status: NO. PATIENT RELEVANT IMPLANT DATA REVIEWED: Not Applicable PATIENT PRESENTS WITH AN IMPLANTABLE OR ATTACHED DBA MANAGER: No RADIOLOGY DEPARTMENT: General X-ray: Exam(s) Completed: Spine X-Ray(s): Cervical AP / LAT / OBL PERIPHERAL IV DATA: Not applicable SIGNED BY: RT Vivian(R) April 09, 2023 8:55 AM [facility] 04-09-2023 Note HNO ID: [id number] Author: CYNDI TRUJILLO APRN.STEELSCOPE OPERATOR Service: ? Author Type: Nurse Practitioner Type: Progress Notes Filed: 04/09/2023 09:18 Note Text: This is a 37 year old female who presents today with: Patient presents with: Acute Visit: Rt shoulder pain and numbness. Tranfer from [facility] HISTORY OF PRESENT ILLNESS: Peggy Fitzgerald is a 37 year old female. Patient presents with: Acute Visit: Rt shoulder pain and numbness. Tranfer from [facility] Here in the office to transfer care. 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 Right Shoulder Pain: Started in February but seemed to progress the past couple of days. No injury to the area. Has noticed some muscle knots. Pain is throbbing and in the shoulder blade. Pain will radiate into the right arm. Has noticed some numbness and tingling into the hands, 1st, 2nd, and 3rd digit, is constant. 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 Difficulty sleeping, both side sleeper and back sleeper. Has tried motrin, tylenol, baclofen, flexeril, and heat. No relief. Migraines: Refers that she has a special ear piercing and migranes are random now. No longer needing any medication at this time. Increased Urinary Frequency: Taking Ditropan XL 5 mg daily. Abnormal mammogrm, saw general surgery, had biopsy. Psychiatry: Telehealth visits every 3 months, taking Abilify 15 mg daily. Vaccines: Denies wanting any vaccines at this time. PAST MEDICAL HISTORY: PAST MEDICAL HISTORY Diagnosis Date Anemia Dysthymic disorder Depression (non-psychotic) Generalized anxiety disorder Anxiety, Generalized Undiagnosed cardiac murmurs PAST SURGICAL HISTORY Procedure Laterality Date EXCIS BREAST LESION 02/23/2023 ultrasound core biopsy right breast IUD REMOVAL 2011 PAST SURGICAL HISTORY OF wisdom teeth SALPINGECTOMY Bilateral 06/01/2017 Laparoscopic VAGINAL HYSTERECTOMY 02/28/2022 ovaries remain ALLERGIES Adhesive, Penicillins, and Vicodin [Hydrocodone-Acetaminophen] MEDICATIONS Current Outpatient Medications Medication Sig benzonatate (TESSALON PERLES) 100 mg capsule Take 1-2 capsules by mouth three times a day as needed. oxybutynin XL (DITROPAN XL) 5 mg 24 hr tablet Take 1 tablet by mouth once daily. hydrOXYzine pamoate (VISTARIL) 25 mg capsule take 1 capsule by mouth four times a day if needed for anxiety ibuprofen (MOTRIN) 600 mg tablet Take 1 tablet by mouth every 6 hours. (Patient not taking: Reported on 03/03/2023) acetaminophen (TYLENOL EXTRA STRENGTH) 500 mg tablet Take 2 tablets by mouth every 6 hours. (Patient not taking: Reported on 03/03/2023) ARIPiprazole (ABILIFY) 15 mg tablet Take 7.5 mg by mouth once daily. PEG 400-propylene glycol (SYSTANE ULTRA) 0.4-0.3 % ophthalmic solution Use 1 Drop in both eyes as needed. No current facility-administered medications for this visit. FAMILY HISTORY Problem Relation Age of Onset Alcohol/Drug Mother ETOH Alcohol/Drug Father ETOH Hypertension Father Alcohol/Drug Maternal Grandmother ETOH Arthritis Maternal Grandmother Diabetes Maternal Grandmother Hypertension Maternal Grandmother Alcohol/Drug Maternal Grandfather ETOH Arthritis Maternal Grandfather Heart Maternal Grandfather Hypertension Maternal Grandfather Lipids Maternal Grandfather Alcohol/Drug Paternal Grandmother ETOH Aneurysm Paternal Grandmother Alcohol/Drug Paternal Grandfather ETOH Heart Paternal Grandfather No Known Problems Son Breast Cancer Other MGAUNT No Known Problems Daughter Social History Tobacco Use Smoking status: Former Packs/day: 0.25 Years: 15.00 Additional pack years: 0.00 Total pack years: 3.75 Types: Cigarettes Start date: 1998 Smokeless tobacco: Never Vaping Use Vaping Use: current everyday user Substances: Nicotine, Flavoring Devices: Pre-filled or refillable cartridge Substance Use Topics Alcohol use: Yes Comment: Occasionally Drug use: Yes Types: Marijuana Comment: once per month. REVIEW OF SYSTEMS GENERAL: No weight loss, malaise or fevers/chills HEENT: Negative for frequent or significant headaches, No changes in hearing or vision. NECK: Negative for lumps, goiter, pain and significant neck swelling RESPIRATORY: Negative for cough, hemoptysis, wheezing, dyspnea or shortness of breath CARDIOVASCULAR: Negative for chest pain, leg swelling, orthopnea, or palpitations GI: No nausea, vomiting, or diarrhea/constipation. No hematochezia/melena. No heartburn or reflux symptoms. : No history of dysuria, frequency or incontinence MUSCULOSKELETAL: + Right shoulder pain SKIN: Negative for lesions, rash, and itching ENDOCRINE: Negative for cold or heat intolerance, polyuria, polydipsia and goiter NEURO: + Numbness tingling down the arm MOOD: Negative for depression, anxiety, or suicidal ideation. EXAM: BP 110/70 Pulse 72 Resp 16 Wt 47.2 kg (104 lb) LMP 02/11/2022 (Exact Date) SpO2 98% BMI 17.99 kg/m? PHYSICAL EXAM: General Appear (more content not included)... [facility] 04-09-2023 Instructions Cyndi Trujillo APRN.DONTAE - 04/09/2023 8:48 AM EST Get Xray completed Start Steroid taper, take with food. May use Zanflex as needed for muscle tension, may make you sleepy. Apply heat to the area, massage therapy may be helpful. Get fasting labs completed in the next 3 months. Follow up in 6 months or sooner pending test results. documented in this encounter [facility] 04-09-2023 History of Presen t illness Narrative This is a 37 year old female who presents today with: Patient presents with: Acute Visit: Rt shoulder pain and numbness. Tranfer from [facility] HISTORY OF PRESENT ILLNESS: Peggy Fitzgerald is a 37 year old female. Patient presents with: Acute Visit: Rt shoulder pain and numbness. Tranfer from [facility] Here in the office to transfer care. 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 Right Shoulder Pain: Started in February but seemed to progress the past couple of days. No injury to the area. Has noticed some muscle knots. Pain is throbbing and in the shoulder blade. Pain will radiate into the right arm. Has noticed some numbness and tingling into the hands, 1st, 2nd, and 3rd digit, is constant. 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 Difficulty sleeping, both side sleeper and back sleeper. Has tried motrin, tylenol, baclofen, flexeril, and heat. No relief. Migraines: Refers that she has a special ear piercing and migranes are random now. No longer needing any medication at this time. Increased Urinary Frequency: Taking Ditropan XL 5 mg daily. Abnormal mammogrm, saw general surgery, had biopsy. Psychiatry: Telehealth visits every 3 months, taking Abilify 15 mg daily. Vaccines: Denies wanting any vaccines at this time. PAST MEDICAL HISTORY: PAST MEDICAL HISTORY Diagnosis Date Anemia Dysthymic disorder Depression (non-psychotic) Generalized anxiety disorder Anxiety, Generalized Undiagnosed cardiac murmurs PAST SURGICAL HISTORY Procedure Laterality Date EXCIS BREAST LESION 02/23/2023 ultrasound core biopsy right breast IUD REMOVAL 2011 PAST SURGICAL HISTORY OF wisdom teeth SALPINGECTOMY Bilateral 06/01/2017 Laparoscopic VAGINAL HYSTERECTOMY 02/28/2022 ovaries remain ALLERGIES Adhesive, Penicillins, and Vicodin [Hydrocodone-Acetaminophen] MEDICATIONS Current Outpatient Medications Medication Sig benzonatate (TESSALON PERLES) 100 mg capsule Take 1-2 capsules by mouth three times a day as needed. oxybutynin XL (DITROPAN XL) 5 mg 24 hr tablet Take 1 tablet by mouth once daily. hydrOXYzine pamoate (VISTARIL) 25 mg capsule take 1 capsule by mouth four times a day if needed for anxiety ibuprofen (MOTRIN) 600 mg tablet Take 1 tablet by mouth every 6 hours. (Patient not taking: Reported on 03/03/2023) acetaminophen (TYLENOL EXTRA STRENGTH) 500 mg tablet Take 2 tablets by mouth every 6 hours. (Patient not taking: Reported on 03/03/2023) ARIPiprazole (ABILIFY) 15 mg tablet Take 7.5 mg by mouth once daily. PEG 400-propylene glycol (SYSTANE ULTRA) 0.4-0.3 % ophthalmic solution Use 1 Drop in both eyes as needed. No current facility-administered medications for this visit. FAMILY HISTORY Problem Relation Age of Onset Alcohol/Drug Mother ETOH Alcohol/Drug Father ETOH Hypertension Father Alcohol/Drug Maternal Grandmother ETOH Arthritis Maternal Grandmother Diabetes Maternal Grandmother Hypertension Maternal Grandmother Alcohol/Drug Maternal Grandfather ETOH Arthritis Maternal Grandfather Heart Maternal Grandfather Hypertension Maternal Grandfather Lipids Maternal Grandfather Alcohol/Drug Paternal Grandmother ETOH Aneurysm Paternal Grandmother Alcohol/Drug Paternal Grandfather ETOH Heart Paternal Grandfather No Known Problems Son Breast Cancer Other MGAUNT No Known Problems Daughter Social History Tobacco Use Smoking status: Former Packs/day: 0.25 Years: 15.00 Additional pack years: 0.00 Total pack years: 3.75 Types: Cigarettes Start date: 1998 Smokeless tobacco: Never Vaping Use Vaping Use: current everyday user Substances: Nicotine, Flavoring Devices: Pre-filled or refillable cartridge Substance Use Topics Alcohol use: Yes Comment: Occasionally Drug use: Yes Types: Marijuana Comment: once per month. REVIEW OF SYSTEMS GENERAL: No weight loss, malaise or fevers/chills HEENT: Negative for frequent or significant headaches, No changes in hearing or vision. NECK: Negative for lumps, goiter, pain and significant neck swelling RESPIRATORY: Negative for cough, hemoptysis, wheezing, dyspnea or shortness of breath CARDIOVASCULAR: Negative for chest pain, leg swelling, orthopnea, or palpitations GI: No nausea, vomiting, or diarrhea/constipation. No hematochezia/melena. No heartburn or reflux symptoms. : No history of dysuria, frequency or incontinence MUSCULOSKELETAL: + Right shoulder pain SKIN: Negative for lesions, rash, and itching ENDOCRINE: Negative for cold or heat intolerance, polyuria, polydipsia and goiter NEURO: + Numbness tingling down the arm MOOD: Negative for depression, anxiety, or suicidal ideation. EXAM: BP 110/70 Pulse 72 Resp 16 Wt 47.2 kg (104 lb) LMP 02/11/2022 (Exact Date) SpO2 98% BMI 17.99 kg/m PHYSICAL EXAM: General Appearance: Well appearing, alert, in no acute distress, well-hydrated, well nourished. Skin: Skin color, texture, turgor normal, no suspicious rashes or lesions. Head: Normocephalic, no masses, lesions, tenderness or abnormalities. Eyes: Anicteric sclera. Extraocular movements are intact. Lungs: Lungs clear to auscultation. No wheezing, rhonchi, rales. Heart: RRR without murmur, gallop, or rubs. No ectopy. Extremities: No deformities, edema, skin discoloration, clubbing or cyanosis. Good capillary refill. Musculoskeletal: Shoulder full ROM, negative empty can/Apley's test. Tenderness noted on the right medial scapula with palpation. No AC joint tenderness. Reduced range of motion of neck, difficulty performing ROM. Moderate muscle tension noted in bilateral trapezius muscles as well as pectoralis muscle. Peripheral Pulses: Normal, Capillary refill <2secs, strong peripheral pulses, Pulses palpable. Neurologic: Gait normal. Negative Tinel's test ASSESSMENT/PLAN: 1. Neck pain - ICD9: 723.1, ICD10: M54.2 (primary diagnosis) - Symptoms may be due to significant muscle tension noted on exam. - Get cervical x-ray to evaluate for any possible arthritis or foraminal narrowing that could be causing symptoms. - Start prednisone taper, may use Zanaflex as needed for muscle tension. - Continue supportive care at home, heat, gentle stretching, and may consider massage therapy. - XR CERV OTHER 4V AP/LAT/OBL - PREDNISONE 10 MG TABLET - TIZANIDINE 4 MG TABLET 2. Muscle tension pain - ICD9: 729.1, ICD10: M79.10 -Same plan as #1. 3. Migraine without aura and without status migrainosus, not intractable - ICD9: 346.10, ICD10: G43.009 - Stable, without medication. - COMP METABOLIC PANEL 4. Increased frequency of urination - ICD9: 788.41, ICD10: R35.0 - Stable, continue with Ditropan as prescribed. 5. Hyperlipidemia, mixed - ICD9: 272.2, ICD10: E78.2 - Control undetermined, due for labs - Counseled on healthy diet and regular exercise - LIPID PANEL BASIC - COMP METABOLIC PANEL 6. Screening for diabetes mellitus - ICD9: V77.1, ICD10: Z13.1 - HGB A1C Follow-up in 6 months or sooner pending test results. Discussed treatment plan and patient voices understanding. Patient's questions answered appropriately. Medications and potential side effects were discussed and patient voices understanding. Cyndi Trujillo APRN.DONTAE This note was partially generated using [employer] voice recognition system. Note was reviewed for accuracy. There may be minor misspellings or grammar miscues with [employer] voice recognition. documented in this encounter [facility] 04-02-2023 Note HNO ID: [id number] Author: ALBERTINA OWEN PA-C Service: ? Author Type: Physician Bioinformatics Software Engineer Type: Progress Notes Filed: 04/02/2023 14:40 Note Text: 04/02/2023 Patient presents with: Cough: Congestion, drainage, OCHOA x 3days SUBJECTIVE: This is a 37 year old that is here today for Complaint(s) of nasal congestion and drainage and cough x 3 days. + associated OCHOA. No sinus pain, but notes significant congestion and drainage. She did have 4 episodes of vomiting. Did not have a flu shot this year. Denies SOB, wheezing, ear pain, diarrhea, chest pain Has tried tylenol cold/flu. PAST MEDICAL HISTORY Diagnosis Date Anemia Dysthymic disorder Depression (non-psychotic) Generalized anxiety disorder Anxiety, Generalized Undiagnosed cardiac murmurs ALLERGIES Adhesive, Penicillins, and Vicodin [Hydrocodone-Acetaminophen] MEDICATIONS Current Outpatient Medications Medication Sig oxybutynin XL (DITROPAN XL) 5 mg 24 hr tablet Take 1 tablet by mouth once daily. hydrOXYzine pamoate (VISTARIL) 25 mg capsule take 1 capsule by mouth four times a day if needed for anxiety ARIPiprazole (ABILIFY) 15 mg tablet Take 7.5 mg by mouth once daily. ibuprofen (MOTRIN) 600 mg tablet Take 1 tablet by mouth every 6 hours. (Patient not taking: Reported on 03/03/2023) acetaminophen (TYLENOL EXTRA STRENGTH) 500 mg tablet Take 2 tablets by mouth every 6 hours. (Patient not taking: Reported on 03/03/2023) PEG 400-propylene glycol (SYSTANE ULTRA) 0.4-0.3 % ophthalmic solution Use 1 Drop in both eyes as needed. No current facility-administered medications for this visit. SOCIAL HISTORY Social History Tobacco Use Smoking status: Former Packs/day: 0.25 Years: 15.00 Additional pack years: 0.00 Total pack years: 3.75 Types: Cigarettes Start date: 1998 Smokeless tobacco: Never Vaping Use Vaping Use: current everyday user Substances: Nicotine, Flavoring Devices: Pre-filled or refillable cartridge Substance Use Topics Alcohol use: Yes Comment: Occasionally Drug use: Yes Types: Marijuana Comment: once per month. REVIEW OF SYSTEMS See HPI OBJECTIVE: BP 116/76 Pulse 77 Temp 37.2 ?C (99 ?F) (Right Tympanic) Resp 16 Wt 49.4 kg (108 lb 12.8 oz) LMP 02/11/2022 (Exact Date) SpO2 97% BMI 18.82 kg/m? APPEARANCE alert, in no acute distress, well-hydrated, well nourished. EYES PERRLA, conjunctiva and sclera normal. EARS External ears normal, canals clear. TMs normal ASHUTOSH NOSE/SINUS Nares normal. Septum midline. Mucosa normal. No drainage or sinus tenderness. THROAT normal, no erythema NECK Supple, + ASHUTOSH anterior cervical adenopathy; HEART RRR with normal S1 and S2 LUNG clear to auscultation, No wheezing, rhonchi, rales. ABDOMEN soft, non-tender. Negative Gupta's, McBurney's. ASSESSMENT/PLAN: 1. Acute cough - ICD9: 786.2, ICD10: R05.1 Supportive care with fluids and rest - COVID AND INFLUENZA A/B AND RSV NAAT, ROUTINE vs other viral etiology likely - BENZONATATE 100 MG CAPSULE Sudafed prn The patient indicates understanding of these issues and agrees with the plan. Reviewed red flags and when to seek care sooner. Albertina Owen PA-C 04/02/2023 [facility] 04-02-2023 History of Presen t illness Narrative 04/02/2023 Patient presents with: Cough: Congestion, drainage, OCHOA x 3days SUBJECTIVE: This is a 37 year old that is here today for Complaint(s) of nasal congestion and drainage and cough x 3 days. + associated OCHOA. No sinus pain, but notes significant congestion and drainage. She did have 4 episodes of vomiting. Did not have a flu shot this year. Denies SOB, wheezing, ear pain, diarrhea, chest pain Has tried tylenol cold/flu. PAST MEDICAL HISTORY Diagnosis Date Anemia Dysthymic disorder Depression (non-psychotic) Generalized anxiety disorder Anxiety, Generalized Undiagnosed cardiac murmurs ALLERGIES Adhesive, Penicillins, and Vicodin [Hydrocodone-Acetaminophen] MEDICATIONS Current Outpatient Medications Medication Sig oxybutynin XL (DITROPAN XL) 5 mg 24 hr tablet Take 1 tablet by mouth once daily. hydrOXYzine pamoate (VISTARIL) 25 mg capsule take 1 capsule by mouth four times a day if needed for anxiety ARIPiprazole (ABILIFY) 15 mg tablet Take 7.5 mg by mouth once daily. ibuprofen (MOTRIN) 600 mg tablet Take 1 tablet by mouth every 6 hours. (Patient not taking: Reported on 03/03/2023) acetaminophen (TYLENOL EXTRA STRENGTH) 500 mg tablet Take 2 tablets by mouth every 6 hours. (Patient not taking: Reported on 03/03/2023) PEG 400-propylene glycol (SYSTANE ULTRA) 0.4-0.3 % ophthalmic solution Use 1 Drop in both eyes as needed. No current facility-administered medications for this visit. SOCIAL HISTORY Social History Tobacco Use Smoking status: Former Packs/day: 0.25 Years: 15.00 Additional pack years: 0.00 Total pack years: 3.75 Types: Cigarettes Start date: 1998 Smokeless tobacco: Never Vaping Use Vaping Use: current everyday user Substances: Nicotine, Flavoring Devices: Pre-filled or refillable cartridge Substance Use Topics Alcohol use: Yes Comment: Occasionally Drug use: Yes Types: Marijuana Comment: once per month. REVIEW OF SYSTEMS See HPI OBJECTIVE: BP 116/76 Pulse 77 Temp 37.2 C (99 F) (Right Tympanic) Resp 16 Wt 49.4 kg (108 lb 12.8 oz) LMP 02/11/2022 (Exact Date) SpO2 97% BMI 18.82 kg/m APPEARANCE alert, in no acute distress, well-hydrated, well nourished. EYES PERRLA, conjunctiva and sclera normal. EARS External ears normal, canals clear. TMs normal ASHUTOSH NOSE/SINUS Nares normal. Septum midline. Mucosa normal. No drainage or sinus tenderness. THROAT normal, no erythema NECK Supple, + ASHUTOSH anterior cervical adenopathy; HEART RRR with normal S1 and S2 LUNG clear to auscultation, No wheezing, rhonchi, rales. ABDOMEN soft, non-tender. Negative Gupta's, McBurney's. ASSESSMENT/PLAN: 1. Acute cough - ICD9: 786.2, ICD10: R05.1 Supportive care with fluids and rest - COVID & INFLUENZA A/B & RSV NAAT, ROUTINE vs other viral etiology likely - BENZONATATE 100 MG CAPSULE Sudafed prn The patient indicates understanding of these issues and agrees with the plan. Reviewed red flags and when to seek care sooner. Albertina Owen PA-C 04/02/2023 documented in this encounter [facility] 03-05-2023 Note HNO ID: [id number] Author: JOCELYNE GANT MD Service: ? Author Type: Physician Type: Progress Notes Filed: 03/05/2023 07:24 Note Text: FOLLOW UP VISIT - POST LEFT ULTRASOUND GUIDED CORE BIOPSY NAME: Peggy Fitzgerald [facility] NO.: [id number] DATE OF SERVICE: 03/03/2023 : 1985 REFERRING PHYSICIAN: Lizabeth Park Peggy is a patient I am following for abnormal left breast imaging. The patient is a 37 year old female with a complaint of an abnormal mammogram. The patient noticed discomfort in her upper outer portion of her breast and left axillary region. The patient had a mammogram with bilateral ultrasound on January 13, 2023 which demonstrated: IMPRESSION: INCOMPLETE: NEEDS ADDITIONAL IMAGING EVALUATION The 2 cm irregular asymmetry in the right breast is indeterminate. An ultrasound is recommended. There is no abnormality seen in the left breast to correspond with the palpable abnormality and pain, however, clinical correlation and ultrasound are recommended. IMPRESSION: SUSPICIOUS FINDING - BIOPSY SHOULD BE CONSIDERED The 2 cm x 0.6 cm x 1.1 cm irregular mass in the right breast is suspicious of malignancy. An ultrasound guided biopsy is recommended. Negative right axillary ultrasound. The patient denies a history of breast masses. She does not perform a self breast exam routinely. She notes no skin changes. She denies nipple discharge. She notes no axillary masses. She notes no family history of breast problems. She notes no significant breast trauma or breast difficulties in the past. The patient is being seen by me today at the request of Lizabeth Park for my opinion and advice regarding abnormal breast imaging. I performed a left side ultrasound guided core biopsy for her abnormal mammogram on February 24, 2023. The pathology returned as: FINAL DIAGNOSIS A. Right breast, core biopsy: - Nodular adenosis. The patient notes slight bruising since the procedure. Mammography demonstrated good position relative to the expected site VITALS: Blood pressure 108/60, pulse 86, temperature 36.3 ?C (97.4 ?F), height 161.9 cm (5' 3.75 ), weight 51.7 kg (114 lb), last menstrual period 02/11/2022, SpO2 99%. On examination, the left side breast biopsy site is clean, dry, and intact. There is slight bruising of the site. Assessment IMPRESSION: status post ultrasound guided core biopsy for left side breast nodular adenosis. PLAN: If Peggy notes any problems, she should contact me immediately. I reminded her about the importance of self - breast exam. I recommend she perform monthly self breast exams. If any palpable abnormalities, change in breast exam, or any difficulties are noted, she is to contact my office immediately. I generally recommend follow up unilateral mammogram and ultrasound 6 months following biopsy. Diagnoses: (R92.8) Abnormal finding on breast imaging (primary encounter diagnosis) Return to Clinic: The patient is instructed to follow-up with me in 6 months with mammogram and ultrasound at that time. Jocelyne Gant MD [facility] 02-25-2023 Note HNO ID: [id number] Author: JOCELYNE GANT MD Service: ? Author Type: Physician Type: Progress Notes Filed: 02/25/2023 00:37 Note Text: HISTORY AND PHYSICAL - BREAST COMPLAINT Peggy Fitzgerald 1985 REFERRING PHYSICIAN: Lizabeth Park CHIEF COMPLAINT: Abnormal breast imaging HPI: The patient is a 37 year old female with a complaint of an abnormal mammogram. The patient noticed discomfort in her upper outer portion of her breast and left axillary region. The patient had a mammogram with bilateral ultrasound on January 13, 2023 which demonstrated: IMPRESSION: INCOMPLETE: NEEDS ADDITIONAL IMAGING EVALUATION The 2 cm irregular asymmetry in the right breast is indeterminate. An ultrasound is recommended. There is no abnormality seen in the left breast to correspond with the palpable abnormality and pain, however, clinical correlation and ultrasound are recommended. IMPRESSION: SUSPICIOUS FINDING - BIOPSY SHOULD BE CONSIDERED The 2 cm x 0.6 cm x 1.1 cm irregular mass in the right breast is suspicious of malignancy. An ultrasound guided biopsy is recommended. Negative right axillary ultrasound. The patient denies a history of breast masses. She does not perform a self breast exam routinely. She notes no skin changes. She denies nipple discharge. She notes no axillary masses. She notes no family history of breast problems. She notes no significant breast trauma or breast difficulties in the past. The patient is being seen by me today at the request of Lizabeth Park for my opinion and advice regarding abnormal breast imaging. PAST MEDICAL HISTORY Diagnosis Date Anemia Dysthymic disorder Depression (non-psychotic) Generalized anxiety disorder Anxiety, Generalized Undiagnosed cardiac murmurs PAST SURGICAL HISTORY Procedure Laterality Date IUD REMOVAL 2011 PAST SURGICAL HISTORY OF wisdom teeth SALPINGECTOMY Bilateral 06/01/2017 Laparoscopic VAGINAL HYSTERECTOMY 02/28/2022 ovaries remain Current Outpatient Medications Medication Sig Dispense Refill oxybutynin XL (DITROPAN XL) 5 mg 24 hr tablet Take 1 tablet by mouth once daily. 30 tablet 1 hydrOXYzine pamoate (VISTARIL) 25 mg capsule take 1 capsule by mouth four times a day if needed for anxiety ibuprofen (MOTRIN) 600 mg tablet Take 1 tablet by mouth every 6 hours. (Patient taking differently: Take 600 mg by mouth as needed. 200-600mg as needed for pain,) 60 tablet 0 acetaminophen (TYLENOL EXTRA STRENGTH) 500 mg tablet Take 2 tablets by mouth every 6 hours. 60 tablet 0 ARIPiprazole (ABILIFY) 15 mg tablet Take 7.5 mg by mouth once daily. PEG 400-propylene glycol (SYSTANE ULTRA) 0.4-0.3 % ophthalmic solution Use 1 Drop in both eyes as needed. 10 mL 2 No current facility-administered medications for this visit. ALLERGIES: Adhesive, Penicillins, and Vicodin [Hydrocodone-Acetaminophen] PERSONAL HISTORY: Social History Tobacco Use Smoking status: Former Packs/day: 0.25 Years: 15.00 Additional pack years: 0.00 Total pack years: 3.75 Types: Cigarettes Start date: 1998 Smokeless tobacco: Never Vaping Use Vaping Use: current everyday user Substances: Nicotine, Flavoring Devices: Pre-filled or refillable cartridge Substance Use Topics Alcohol use: Yes Comment: Occasionally Drug use: Yes Types: Marijuana Comment: once per month. FAMILY HISTORY: FAMILY HISTORY Problem Relation Age of Onset Alcohol/Drug Mother ETOH Alcohol/Drug Father ETOH Hypertension Father Alcohol/Drug Maternal Grandmother ETOH Arthritis Maternal Grandmother Diabetes Maternal Grandmother Hypertension Maternal Grandmother Alcohol/Drug Maternal Grandfather ETOH Arthritis Maternal Grandfather Heart Maternal Grandfather Hypertension Maternal Grandfather Lipids Maternal Grandfather Alcohol/Drug Paternal Grandmother ETOH Aneurysm Paternal Grandmother Alcohol/Drug Paternal Grandfather ETOH Heart Paternal Grandfather No Known Problems Son Breast Cancer Other MGAUNT No Known Problems Daughter REVIEW OF SYMPTOMS: The review of systems data was entered by the nurse and reviewed by me Nursing Notes: Chani Aranda LPN 02/24/2023 2:25 PM Signed REVIEW OF SYSTEMS: General: The patient denies fatigue, denies weight loss, denies weight gain, denies feeling hot, and denies feelings of cold. Eyes: The patient denies glaucoma, denies eye injury/surgery, wears glasses or contacts. Ear/Nose/Throat: The patient NOTES allergies, denies hayfever, denies ear infections, and denies bloody noses. Cardiovascular: The patient denies chest pain, denies heart disease, denies high blood pressure,denies cardiac stent, denies prior heart attack, denies irregular heart beat, denies high cholesterol, denies poor circulation, denies heart failure, other cardiac issues, denies claudication, denies cold feet, denies peripheral arterial stent. Respiratory: The patient denies tuberculosi (more content not included)... [facility] 02-24-2023 Note HNO ID: [id number] Author: HARMAN AVERY RN Service: ? Author Type: Registered Nurse Type: Progress Notes Filed: 02/25/2023 00:37 Note Text: UNIVERSAL PROTOCOL / SAFETY CHECKLIST Procedure to be Performed: Right ultrasound guided core breast biopsy with marker clip placement Sign In: A Moment of CARE was completed. Personnel directly involved with the procedure wore the appropriate PPE (Personal Protective Equipment). Special equipment: [employer] Marquee Disposable biopsy instrument, ultraclip breast tissue marker. Patient/Surrogate Stated/Verified: PATIENT VERIFIED(optional for EMERGENT procedures): Patient name, Date of , Relevant allergies, and The intended procedure Time Out Communication: Intended patient and procedure match the source documents. Consent documented and matches the intended procedure. Relevant labs, photos, and/or imaging studies have been reviewed. Correct side/site marked and visible. Medications required for procedure verified. Fire risk assessed and interventions discussed. Sign Out: SIGN OUT (optional for EMERGENT procedures): All specimen containers correctly labeled. No instruments, equipment or retained foreign bodies applicable. Post-procedure follow-up management communicated and Plan of Care Visit completed when applicable. Harman Avery RN [facility] 01-13-2023 Note HNO ID: [id number] Author: Lizabeth Park APRN.DONTAE Service: ? Author Type: Nurse Practitioner Type: Progress Notes Filed: 01/13/2023 1:26 PM Note Text: Greenhouse Manager offered: Patient declinesLiat Woods is a 37 year old who presents for an annual gynecologic exam with complaints, bladder urgency . Menses: hysterectomy. Contraception: hysterectomy HPV vaccine: No Last Pap: 04/09/2021 normal HPV: 04/06/2021 negative History of abnormal pap: Yes Last mammogram: bnormal, right breast needs biopsy Sexually active: Yes Pain with intercourse: No Postcoital bleeding: No OB History T2 L2 SAB0 IAB1 Ectopic0 Multiple0 Live Births2 Associate Property Manager History LMP: 02/11/2022 (Exact Date), Hysterectomy Age at Menarche: Age at First : Age at Menopause: Associate Property Manager History Comments: Sexual Activity: Yes; Male Contraception: Surgical PAST MEDICAL HISTORY Diagnosis Date Anemia Dysthymic disorder Depression (non-psychotic) Generalized anxiety disorder Anxiety, Generalized Undiagnosed cardiac murmurs PAST SURGICAL HISTORY Procedure Laterality Date IUD REMOVAL 2011 PAST SURGICAL HISTORY OF wisdom teeth SALPINGECTOMY Bilateral 06/01/2017 Laparoscopic VAGINAL HYSTERECTOMY 02/28/2022 ovaries remain FAMILY HISTORY Problem Relation Age of Onset Alcohol/Drug Mother ETOH Alcohol/Drug Father ETOH Hypertension Father Alcohol/Drug Maternal Grandmother ETOH Arthritis Maternal Grandmother Diabetes Maternal Grandmother Hypertension Maternal Grandmother Alcohol/Drug Maternal Grandfather ETOH Arthritis Maternal Grandfather Heart Maternal Grandfather Hypertension Maternal Grandfather Lipids Maternal Grandfather Alcohol/Drug Paternal Grandmother ETOH Aneurysm Paternal Grandmother Alcohol/Drug Paternal Grandfather ETOH Heart Paternal Grandfather No Known Problems Son Breast Cancer Other MGAUNT No Known Problems Daughter SOCIAL HISTORY Social History Tobacco Use Smoking status: Former Packs/day: 0.25 Years: 15.00 Additional pack years: 0.00 Total pack years: 3.75 Types: Cigarettes Start date: 1998 Smokeless tobacco: Never Vaping Use Vaping Use: current everyday user Substances: Nicotine, Flavoring Devices: Pre-filled or refillable cartridge Substance Use Topics Alcohol use: Yes Comment: Occasionally Drug use: Yes Types: Marijuana Comment: once per month. REVIEW OF SYSTEMS Abdomen: No abdominal pain, nausea, vomiting, diarrhea, or constipation. No bloating, early satiety, indigestion, or increased flatulence. Bladder: No dysuria, gross hematuria, +urinary frequency, +urinary urgency, Breast: right breast lump. Allergies and current medication updated:Yes EXAM: BP 106/70 Ht 5' 3 (1.60m) Wt 106 lb 12.8 oz (48.4kg) LMP 02/11/2022 BMI 18.92 kg/(m2). GENERAL: pleasant, female in no apparent distress HEENT: Normocephalic, atraumatic, mucus membranes moist, and no lesions NECK: Supple, full range of motion, no adenopathy, and thyroid normal DERMATOLOGY: Normal, without lesions, non-icteric, and non-hirsute BREAST: deferred CHEST: Normal inspiratory effort ABDOMEN: soft, non-tender, and no masses PELVIC: external genitalia normal, normal Bartholin's glands, urethra, [place]'s glands, no vulvar lesions, good vaginal support, physiologic discharge present, normal appearing perineal body and perianal region, cervix surgically absent BIMANUAL: no adnexal masses, non-tender, and uterus surgically absent RECTOVAGINAL: deferred. NEURO: alert and oriented x3,exam grossly non-focal EXTREMITIES: normal ASSESSMENT/PLAN: 1) Health maintenance: Pap/HPV up to date. Mammogram up to date . Nutrition, exercise and routine health maintenance exams reviewed. Calcium/Vitamin D supplementation information provided. 2) Contraception: hysterectomy. Contraceptive options reviewed and information provided. 3) STD screening: Declined STD check. 4) Follow up one year or sooner as needed Oxybutynin 5 mg for OAB Lizabeth Park APRN.[facility] 01-13-2023 History of Presen t illness Narrative Greenhouse Manager offered: Patient declines. Peggy is a 37 year old who presents for an annual gynecologic exam with complaints, bladder urgency . Menses: hysterectomy. Contraception: hysterectomy HPV vaccine: No Last Pap: 04/09/2021 normal HPV: 04/06/2021 negative History of abnormal pap: Yes Last mammogram: bnormal, right breast needs biopsy Sexually active: Yes Pain with intercourse: No Postcoital bleeding: No OB History T2 L2 SAB0 IAB1 Ectopic0 Multiple0 Live Births2 Associate Property Manager History LMP: 02/11/2022 (Exact Date), Hysterectomy Age at Menarche: Age at First : Age at Menopause: Associate Property Manager History Comments: Sexual Activity: Yes; Male Contraception: Surgical PAST MEDICAL HISTORY Diagnosis Date Anemia Dysthymic disorder Depression (non-psychotic) Generalized anxiety disorder Anxiety, Generalized Undiagnosed cardiac murmurs PAST SURGICAL HISTORY Procedure Laterality Date IUD REMOVAL 2011 PAST SURGICAL HISTORY OF wisdom teeth SALPINGECTOMY Bilateral 06/01/2017 Laparoscopic VAGINAL HYSTERECTOMY 02/28/2022 ovaries remain FAMILY HISTORY Problem Relation Age of Onset Alcohol/Drug Mother ETOH Alcohol/Drug Father ETOH Hypertension Father Alcohol/Drug Maternal Grandmother ETOH Arthritis Maternal Grandmother Diabetes Maternal Grandmother Hypertension Maternal Grandmother Alcohol/Drug Maternal Grandfather ETOH Arthritis Maternal Grandfather Heart Maternal Grandfather Hypertension Maternal Grandfather Lipids Maternal Grandfather Alcohol/Drug Paternal Grandmother ETOH Aneurysm Paternal Grandmother Alcohol/Drug Paternal Grandfather ETOH Heart Paternal Grandfather No Known Problems Son Breast Cancer Other MGAUNT No Known Problems Daughter SOCIAL HISTORY Social History Tobacco Use Smoking status: Former Packs/day: 0.25 Years: 15.00 Additional pack years: 0.00 Total pack years: 3.75 Types: Cigarettes Start date: 1998 Smokeless tobacco: Never Vaping Use Vaping Use: current everyday user Substances: Nicotine, Flavoring Devices: Pre-filled or refillable cartridge Substance Use Topics Alcohol use: Yes Comment: Occasionally Drug use: Yes Types: Marijuana Comment: once per month. REVIEW OF SYSTEMS Abdomen: No abdominal pain, nausea, vomiting, diarrhea, or constipation. No bloating, early satiety, indigestion, or increased flatulence. Bladder: No dysuria, gross hematuria, +urinary frequency, +urinary urgency, Breast: right breast lump. Allergies and current medication updated:Yes EXAM: BP 106/70 Ht 5' 3 (1.60m) Wt 106 lb 12.8 oz (48.4kg) LMP 02/11/2022 BMI 18.92 kg/(m^2). GENERAL: pleasant, female in no apparent distress HEENT: Normocephalic, atraumatic, mucus membranes moist, and no lesions NECK: Supple, full range of motion, no adenopathy, and thyroid normal DERMATOLOGY: Normal, without lesions, non-icteric, and non-hirsute BREAST: deferred CHEST: Normal inspiratory effort ABDOMEN: soft, non-tender, and no masses PELVIC: external genitalia normal, normal Bartholin's glands, urethra, [place]'s glands, no vulvar lesions, good vaginal support, physiologic discharge present, normal appearing perineal body and perianal region, cervix surgically absent BIMANUAL: no adnexal masses, non-tender, and uterus surgically absent RECTOVAGINAL: deferred. NEURO: alert and oriented x3,exam grossly non-focal EXTREMITIES: normal ASSESSMENT/PLAN: 1) Health maintenance: Pap/HPV up to date. Mammogram up to date . Nutrition, exercise and routine health maintenance exams reviewed. Calcium/Vitamin D supplementation information provided. 2) Contraception: hysterectomy. Contraceptive options reviewed and information provided. 3) STD screening: Declined STD check. 4) Follow up one year or sooner as needed Oxybutynin 5 mg for OAB Lizabeth Park APRN.STEELSCOPE OPERATOR documented in this encounter [facility] 01-13-2023 Note HNO ID: [id number] Author: Sakshi Marie RDMS Service: ? Author Type: Checker Loader Type: Progress Notes Filed: 01/13/2023 2:50 PM Note Text: Radiology Service Progress Note PATIENT NAME: Peggy Fitzgerald DATE OF SERVICE: January 13, 2023 TIME: 2:50 PM PATIENT IDENTITY VERIFICATION COMPLETED USING TWO (2) IDENTIFIERS: Name and Date of confirmed by patient verbally. FALL SCREENING: Has the patient had 2 falls in the last year or 1 fall with injury or currently using an Ambulatory Assistive Device (Walker, Cane, Wheelchair, Crutches, etc.)? No PATIENT GENDER DATA: Female. status: : No status: NO. PATIENT RELEVANT IMPLANT DATA REVIEWED: Not Applicable RADIOLOGY DEPARTMENT: Ultrasound PERIPHERAL IV DATA: Not applicable SIGNED BY: Sakshi Marie RDMS RVT January 13, 2023 2:50 PM [facility] 01-13-2023 Note HNO ID: [id number] Author: Sara Jose Mammo Tech Service: ? Author Type: Scientific Publications Editor Type: Progress Notes Filed: 01/13/2023 10:25 AM Note Text: Radiology Service Progress Note PATIENT NAME: Peggy Fitzgerald DATE OF SERVICE: January 13, 2023 TIME: 9:59 AM PATIENT IDENTITY VERIFICATION COMPLETED USING TWO (2) IDENTIFIERS: Name and Date of confirmed by patient verbally. FALL SCREENING: Has the patient had 2 falls in the last year or 1 fall with injury or currently using an Ambulatory Assistive Device (Walker, Cane, Wheelchair, Crutches, etc.)? No PATIENT GENDER DATA: Female. status: : No status: NO. PATIENT RELEVANT IMPLANT DATA REVIEWED: Not Applicable RADIOLOGY DEPARTMENT: Mammography PERIPHERAL IV DATA: Not applicable SIGNED BY: Sara Jose [employer] January 13, 2023 9:59 AM [facility] 01-13-2023 History of Presen t illness Narrative Radiology Service Progress Note PATIENT NAME: Peggy Fitzgerald DATE OF SERVICE: January 13, 2023 TIME: 2:50 PM PATIENT IDENTITY VERIFICATION COMPLETED USING TWO (2) IDENTIFIERS: Name and Date of confirmed by patient verbally. FALL SCREENING: Has the patient had 2 falls in the last year or 1 fall with injury or currently using an Ambulatory Assistive Device (Walker, Cane, Wheelchair, Crutches, etc.)? No PATIENT GENDER DATA: Female. status: : No status: NO. PATIENT RELEVANT IMPLANT DATA REVIEWED: Not Applicable RADIOLOGY DEPARTMENT: Ultrasound PERIPHERAL IV DATA: Not applicable SIGNED BY: Sakshi Marie RDMS [facility] January 13, 2023 2:50 PM documented in this encounter [facility] 01-13-2023 History of Presen t illness Narrative Radiology Service Progress Note PATIENT NAME: Peggy Fitzgerald DATE OF SERVICE: January 13, 2023 TIME: 9:59 AM PATIENT IDENTITY VERIFICATION COMPLETED USING TWO (2) IDENTIFIERS: Name and Date of confirmed by patient verbally. FALL SCREENING: Has the patient had 2 falls in the last year or 1 fall with injury or currently using an Ambulatory Assistive Device (Walker, Cane, Wheelchair, Crutches, etc.)? No PATIENT GENDER DATA: Female. status: : No status: NO. PATIENT RELEVANT IMPLANT DATA REVIEWED: Not Applicable RADIOLOGY DEPARTMENT: Mammography PERIPHERAL IV DATA: Not applicable SIGNED BY: Sara Jose [employer] January 13, 2023 9:59 AM documented in this encounter [facility] 12-18-2022 Note HNO ID: [id number] Author: Lizabeth Park APRN.STEELSCOPE OPERATOR Service: ? Author Type: Nurse Practitioner Type: Progress Notes Filed: 12/18/2022 1:58 PM Note Text: Greenhouse Manager offered: Patient declines. BREAST LUMP HISTORY: This is a 37 year old female Presents with breast mass left Mass has been present for 5 days Tenderness Yes, with touch but there is a pain there all the time Change in sizeNo Any history breast mass No Caffeine use Yes 2 cups/day Last mammogram never Any previous breast surgery No Any family history breast disease/ breast cancer Yes OB History T2 L2 SAB0 IAB1 Ectopic0 Multiple0 Live Births2 PAST MEDICAL HISTORY Diagnosis Date Anemia Dysthymic disorder Depression (non-psychotic) Generalized anxiety disorder Anxiety, Generalized Undiagnosed cardiac murmurs PAST SURGICAL HISTORY Procedure Laterality Date IUD REMOVAL 2011 PAST SURGICAL HISTORY OF wisdom teeth SALPINGECTOMY Bilateral 06/01/2017 Laparoscopic FAMILY HISTORY Problem Relation Age of Onset Alcohol/Drug Mother ETOH Alcohol/Drug Father ETOH Hypertension Father Alcohol/Drug Maternal Grandmother ETOH Arthritis Maternal Grandmother Diabetes Maternal Grandmother Hypertension Maternal Grandmother Alcohol/Drug Maternal Grandfather ETOH Arthritis Maternal Grandfather Heart Maternal Grandfather Hypertension Maternal Grandfather Lipids Maternal Grandfather Alcohol/Drug Paternal Grandmother ETOH Aneurysm Paternal Grandmother Alcohol/Drug Paternal Grandfather ETOH Heart Paternal Grandfather No Known Problems Son Breast Cancer Other MGAUNT No Known Problems Daughter SOCIAL HISTORY Social History Tobacco Use Smoking status: Former Packs/day: 0.25 Years: 15.00 Additional pack years: 0.00 Total pack years: 3.75 Types: Cigarettes Start date: 1998 Smokeless tobacco: Never Tobacco comments: Vapes nicotine. Vaping Use Vaping Use: current everyday user Substances: Nicotine, Flavoring Devices: Pre-filled or refillable cartridge Substance Use Topics Alcohol use: Yes Comment: Occasionally Drug use: Yes Types: Marijuana Comment: once per month. PAST SURGICAL HISTORY Procedure Laterality Date IUD REMOVAL 2011 PAST SURGICAL HISTORY OF wisdom teeth SALPINGECTOMY Bilateral 06/01/2017 Laparoscopic Current Outpatient Medications Medication Sig hydrOXYzine pamoate (VISTARIL) 25 mg capsule take 1 capsule by mouth four times a day if needed for anxiety ibuprofen (MOTRIN) 600 mg tablet Take 1 tablet by mouth every 6 hours. (Patient taking differently: Take 600 mg by mouth as needed. 200-600mg as needed for pain,) acetaminophen (TYLENOL EXTRA STRENGTH) 500 mg tablet Take 2 tablets by mouth every 6 hours. ARIPiprazole (ABILIFY) 15 mg tablet Take 7.5 mg by mouth once daily. PEG 400-propylene glycol (SYSTANE ULTRA) 0.4-0.3 % ophthalmic solution Use 1 Drop in both eyes as needed. No current facility-administered medications for this visit. Allergies As of Date: 12/18/2022 Allergen Noted Reaction ADHESIVE 07/27/2017 Rash PENICILLINS 09/08/2006 Rash SEASONAL [OTHER] 09/15/2006 VICODIN [HYDROCODONE-ACETAMINOPHE*2006 Vomiting Fully Assessed 12/18/2022 EXAMINATION: There is concerning axillary lymphadenopathy on left.. She has no fibrocystic changes. On the right are no dominant masses, skin changes or nipple discharge. On the left there is lymph node in the axillary location, but no skin changes or nipple discharge. IMPRESSION: left breast mass. PLAN: No orders found for this visit on 12/18/22. A discussion was held with the patient and patient who agrees with Imaging Lizabeth Park APRN.DONTAE Medical Decision Making: Problems: Moderate: New problem with uncertain prognosis Data: Unique test(s) ordered: 2 Risk: Low: Low risk from testing/treatment Medical Decision Making Level: 3 - Low [facility] 12-18-2022 History of Presen t illness Narrative Greenhouse Manager offered: Patient declines. BREAST LUMP HISTORY: This is a 37 year old female Presents with breast mass left Mass has been present for 5 days Tenderness Yes, with touch but there is a pain there all the time Change in sizeNo Any history breast mass No Caffeine use Yes 2 cups/day Last mammogram never Any previous breast surgery No Any family history breast disease/ breast cancer Yes OB History T2 L2 SAB0 IAB1 Ectopic0 Multiple0 Live Births2 PAST MEDICAL HISTORY Diagnosis Date Anemia Dysthymic disorder Depression (non-psychotic) Generalized anxiety disorder Anxiety, Generalized Undiagnosed cardiac murmurs PAST SURGICAL HISTORY Procedure Laterality Date IUD REMOVAL 2011 PAST SURGICAL HISTORY OF wisdom teeth SALPINGECTOMY Bilateral 06/01/2017 Laparoscopic FAMILY HISTORY Problem Relation Age of Onset Alcohol/Drug Mother ETOH Alcohol/Drug Father ETOH Hypertension Father Alcohol/Drug Maternal Grandmother ETOH Arthritis Maternal Grandmother Diabetes Maternal Grandmother Hypertension Maternal Grandmother Alcohol/Drug Maternal Grandfather ETOH Arthritis Maternal Grandfather Heart Maternal Grandfather Hypertension Maternal Grandfather Lipids Maternal Grandfather Alcohol/Drug Paternal Grandmother ETOH Aneurysm Paternal Grandmother Alcohol/Drug Paternal Grandfather ETOH Heart Paternal Grandfather No Known Problems Son Breast Cancer Other MGAUNT No Known Problems Daughter SOCIAL HISTORY Social History Tobacco Use Smoking status: Former Packs/day: 0.25 Years: 15.00 Additional pack years: 0.00 Total pack years: 3.75 Types: Cigarettes Start date: 1998 Smokeless tobacco: Never Tobacco comments: Vapes nicotine. Vaping Use Vaping Use: current everyday user Substances: Nicotine, Flavoring Devices: Pre-filled or refillable cartridge Substance Use Topics Alcohol use: Yes Comment: Occasionally Drug use: Yes Types: Marijuana Comment: once per month. PAST SURGICAL HISTORY Procedure Laterality Date IUD REMOVAL 2011 PAST SURGICAL HISTORY OF wisdom teeth SALPINGECTOMY Bilateral 06/01/2017 Laparoscopic Current Outpatient Medications Medication Sig hydrOXYzine pamoate (VISTARIL) 25 mg capsule take 1 capsule by mouth four times a day if needed for anxiety ibuprofen (MOTRIN) 600 mg tablet Take 1 tablet by mouth every 6 hours. (Patient taking differently: Take 600 mg by mouth as needed. 200-600mg as needed for pain,) acetaminophen (TYLENOL EXTRA STRENGTH) 500 mg tablet Take 2 tablets by mouth every 6 hours. ARIPiprazole (ABILIFY) 15 mg tablet Take 7.5 mg by mouth once daily. PEG 400-propylene glycol (SYSTANE ULTRA) 0.4-0.3 % ophthalmic solution Use 1 Drop in both eyes as needed. No current facility-administered medications for this visit. Allergies As of Date: 12/18/2022 Allergen Noted Reaction ADHESIVE 07/27/2017 Rash PENICILLINS 09/08/2006 Rash SEASONAL [OTHER] 09/15/2006 VICODIN [HYDROCODONE-ACETAMINOPHE*2006 Vomiting Fully Assessed 12/18/2022 EXAMINATION: There is concerning axillary lymphadenopathy on left.. She has no fibrocystic changes. On the right are no dominant masses, skin changes or nipple discharge. On the left there is lymph node in the axillary location, but no skin changes or nipple discharge. IMPRESSION: left breast mass. PLAN: No orders found for this visit on 12/18/22. A discussion was held with the patient and patient who agrees with Imaging Lizabeth Park APRN.CNP Medical Decision Making: Problems: Moderate: New problem with uncertain prognosis Data: Unique test(s) ordered: 2 Risk: Low: Low risk from testing/treatment Medical Decision Making Level: 3 - Low documented in this encounter [facility] 09-09-2022 Note HNO ID: [id number] Author: Mahogany Guadarrama PA-C Service: ? Author Type: Physician Bioinformatics Software Engineer Type: Progress Notes Filed: 09/09/2022 10:36 AM Note Text: This note was created using [employer]. Subjective Peggy Fitzgerald is a 36 year old female. HPI Patient presents with a chief complaint of urinary frequency, dysuria and blood in urine over the past 2 days. She did take Azo last night and early this morning which helped symptoms significantly. No increased back pain or abdominal pain. No vomiting or fever. Status post hysterectomy. No itching or discharge. Review of Systems Constitutional: Negative. HENT: Negative. Respiratory: Negative. Cardiovascular: Negative. Genitourinary: Positive for dysuria, frequency, hematuria and urgency. Negative for flank pain, pelvic pain, vaginal bleeding, vaginal discharge and vaginal pain. Musculoskeletal: Negative. All other systems reviewed and are negative. PAST MEDICAL HISTORY Diagnosis Date Anemia Dysthymic disorder Depression (non-psychotic) Generalized anxiety disorder Anxiety, Generalized Undiagnosed cardiac murmurs Current Outpatient Medications Medication Sig Dispense Refill hydrOXYzine pamoate (VISTARIL) 25 mg capsule take 1 capsule by mouth four times a day if needed for anxiety ARIPiprazole (ABILIFY) 15 mg tablet Take 7.5 mg by mouth once daily. sulfamethoxazole-trimethoprim (BACTRIM DS) 800-160 mg per tablet Take 1 tablet by mouth twice daily for 3 days. 6 tablet 0 buPROPion XL (WELLBUTRIN XL) 150 mg 24 hr tablet take 1 tablet by mouth every 24 hours (Patient not taking: Reported on 09/09/2022) cyclobenzaprine (FLEXERIL) 10 mg tablet Take 1 tablet by mouth twice daily as needed for muscle spasm or pain. (Patient not taking: Reported on 03/14/2022) 15 tablet 0 Sennosides (SENNA) 8.6 mg cap Take 1 capsule by mouth twice daily. Until bowel movements normal (Patient not taking: Reported on 03/14/2022) 30 capsule 0 ibuprofen (MOTRIN) 600 mg tablet Take 1 tablet by mouth every 6 hours. (Patient not taking: Reported on 03/14/2022) 60 tablet 0 acetaminophen (TYLENOL EXTRA STRENGTH) 500 mg tablet Take 2 tablets by mouth every 6 hours. (Patient not taking: Reported on 03/14/2022) 60 tablet 0 oxyCODONE IR (ROXICODONE) 5 mg immediate release tablet Take 1 tablet by mouth every 6 hours as needed for pain (pain not relieved by ibuprofen and tylenol). (Patient not taking: Reported on 03/14/2022) 10 tablet 0 PEG 400-propylene glycol (SYSTANE ULTRA) 0.4-0.3 % ophthalmic solution Use 1 Drop in both eyes as needed. 10 mL 2 No current facility-administered medications for this visit. PAST SURGICAL HISTORY Procedure Laterality Date IUD REMOVAL 2011 PAST SURGICAL HISTORY OF wisdom teeth SALPINGECTOMY Bilateral 06/01/2017 Laparoscopic FAMILY HISTORY Problem Relation Age of Onset Alcohol/Drug Mother ETOH Alcohol/Drug Father ETOH Hypertension Father Alcohol/Drug Maternal Grandmother ETOH Arthritis Maternal Grandmother Diabetes Maternal Grandmother Hypertension Maternal Grandmother Alcohol/Drug Maternal Grandfather ETOH Arthritis Maternal Grandfather Heart Maternal Grandfather Hypertension Maternal Grandfather Lipids Maternal Grandfather Alcohol/Drug Paternal Grandmother ETOH Aneurysm Paternal Grandmother Alcohol/Drug Paternal Grandfather ETOH Heart Paternal Grandfather No Known Problems Son Breast Cancer Other MGAUNT No Known Problems Daughter Social History Tobacco Use Smoking status: Every Day Packs/day: 0.25 Years: 15.00 Total pack years: 3.75 Types: Cigarettes Start date: 1998 Smokeless tobacco: Never Tobacco comments: Vapes nicotine. Vaping Use Vaping Use: current everyday user Substances: Nicotine, Flavoring Devices: Pre-filled or refillable cartridge Substance Use Topics Alcohol use: Yes Comment: Occasionally Drug use: Yes Types: Marijuana Comment: once per month. Objective BP 118/78 Pulse 69 Temp 36.6 ?C (97.9 ?F) (Tympanic) Resp 16 Wt 48.1 kg (106 lb) LMP 02/11/2022 (Exact Date) SpO2 100% BMI 18.37 kg/m? Physical Exam Vitals reviewed. Constitutional: Appearance: Normal appearance. HENT: Head: Normocephalic and atraumatic. Cardiovascular: Rate and Rhythm: Normal rate and regular rhythm. Heart sounds: Normal heart sounds. Pulmonary: Effort: Pulmonary effort is normal. Breath sounds: Normal breath sounds. Abdominal: General: Abdomen is flat. There is no distension. Palpations: Abdomen is soft. Tenderness: There is no abdominal tenderness. There is no right CVA tenderness, left CVA tenderness or guarding. Musculoskeletal: Cervical back: Neck supple. Skin: General: Skin is warm and dry. Findings: No rash. Neurological: Mental Status: She is alert. Assessment and Plan ASSESSMENT/PLAN: 1. Urinary frequency - ICD9: 788.41, ICD10: R35.0 acute - UA-patient took Azo, urine dip unreliable. Will send (more content not included)... [facility] 09-09-2022 History of Presen t illness Narrative This note was created using [employer]. Subjective Peggy Fitzgerald is a 36 year old female. HPI Patient presents with a chief complaint of urinary frequency, dysuria and blood in urine over the past 2 days. She did take Azo last night and early this morning which helped symptoms significantly. No increased back pain or abdominal pain. No vomiting or fever. Status post hysterectomy. No itching or discharge. Review of Systems Constitutional: Negative. HENT: Negative. Respiratory: Negative. Cardiovascular: Negative. Genitourinary: Positive for dysuria, frequency, hematuria and urgency. Negative for flank pain, pelvic pain, vaginal bleeding, vaginal discharge and vaginal pain. Musculoskeletal: Negative. All other systems reviewed and are negative. PAST MEDICAL HISTORY Diagnosis Date Anemia Dysthymic disorder Depression (non-psychotic) Generalized anxiety disorder Anxiety, Generalized Undiagnosed cardiac murmurs Current Outpatient Medications Medication Sig Dispense Refill hydrOXYzine pamoate (VISTARIL) 25 mg capsule take 1 capsule by mouth four times a day if needed for anxiety ARIPiprazole (ABILIFY) 15 mg tablet Take 7.5 mg by mouth once daily. sulfamethoxazole-trimethoprim (BACTRIM DS) 800-160 mg per tablet Take 1 tablet by mouth twice daily for 3 days. 6 tablet 0 buPROPion XL (WELLBUTRIN XL) 150 mg 24 hr tablet take 1 tablet by mouth every 24 hours (Patient not taking: Reported on 09/09/2022) cyclobenzaprine (FLEXERIL) 10 mg tablet Take 1 tablet by mouth twice daily as needed for muscle spasm or pain. (Patient not taking: Reported on 03/14/2022) 15 tablet 0 Sennosides (SENNA) 8.6 mg cap Take 1 capsule by mouth twice daily. Until bowel movements normal (Patient not taking: Reported on 03/14/2022) 30 capsule 0 ibuprofen (MOTRIN) 600 mg tablet Take 1 tablet by mouth every 6 hours. (Patient not taking: Reported on 03/14/2022) 60 tablet 0 acetaminophen (TYLENOL EXTRA STRENGTH) 500 mg tablet Take 2 tablets by mouth every 6 hours. (Patient not taking: Reported on 03/14/2022) 60 tablet 0 oxyCODONE IR (ROXICODONE) 5 mg immediate release tablet Take 1 tablet by mouth every 6 hours as needed for pain (pain not relieved by ibuprofen and tylenol). (Patient not taking: Reported on 03/14/2022) 10 tablet 0 PEG 400-propylene glycol (SYSTANE ULTRA) 0.4-0.3 % ophthalmic solution Use 1 Drop in both eyes as needed. 10 mL 2 No current facility-administered medications for this visit. PAST SURGICAL HISTORY Procedure Laterality Date IUD REMOVAL 2011 PAST SURGICAL HISTORY OF wisdom teeth SALPINGECTOMY Bilateral 06/01/2017 Laparoscopic FAMILY HISTORY Problem Relation Age of Onset Alcohol/Drug Mother ETOH Alcohol/Drug Father ETOH Hypertension Father Alcohol/Drug Maternal Grandmother ETOH Arthritis Maternal Grandmother Diabetes Maternal Grandmother Hypertension Maternal Grandmother Alcohol/Drug Maternal Grandfather ETOH Arthritis Maternal Grandfather Heart Maternal Grandfather Hypertension Maternal Grandfather Lipids Maternal Grandfather Alcohol/Drug Paternal Grandmother ETOH Aneurysm Paternal Grandmother Alcohol/Drug Paternal Grandfather ETOH Heart Paternal Grandfather No Known Problems Son Breast Cancer Other MGAUNT No Known Problems Daughter Social History Tobacco Use Smoking status: Every Day Packs/day: 0.25 Years: 15.00 Total pack years: 3.75 Types: Cigarettes Start date: 1998 Smokeless tobacco: Never Tobacco comments: Vapes nicotine. Vaping Use Vaping Use: current everyday user Substances: Nicotine, Flavoring Devices: Pre-filled or refillable cartridge Substance Use Topics Alcohol use: Yes Comment: Occasionally Drug use: Yes Types: Marijuana Comment: once per month. Objective BP 118/78 Pulse 69 Temp 36.6 C (97.9 F) (Tympanic) Resp 16 Wt 48.1 kg (106 lb) LMP 02/11/2022 (Exact Date) SpO2 100% BMI 18.37 kg/m Physical Exam Vitals reviewed. Constitutional: Appearance: Normal appearance. HENT: Head: Normocephalic and atraumatic. Cardiovascular: Rate and Rhythm: Normal rate and regular rhythm. Heart sounds: Normal heart sounds. Pulmonary: Effort: Pulmonary effort is normal. Breath sounds: Normal breath sounds. Abdominal: General: Abdomen is flat. There is no distension. Palpations: Abdomen is soft. Tenderness: There is no abdominal tenderness. There is no right CVA tenderness, left CVA tenderness or guarding. Musculoskeletal: Cervical back: Neck supple. Skin: General: Skin is warm and dry. Findings: No rash. Neurological: Mental Status: She is alert. Assessment and Plan ASSESSMENT/PLAN: 1. Urinary frequency - ICD9: 788.41, ICD10: R35.0 acute - UA-patient took Azo, urine dip unreliable. Will send for culture. I did start her on Bactrim. - Send urine for culture - UA DIP, URINE (POC) - URINE CULTURE Mahogany Guadarrama PA-C documented in this encounter 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 Osborn Vaginal bleeding post operatively Patient procedure 02/28/2022 having vaginal bleeding and concerned. Patient can be reached at [phone] Emily Vergara Electronically signed by Emily ArandaJai [facility] at 04/04/2022 11:07 AM EST documented in this encounter [facility] 03-14-2022 History of Presen t illness Narrative 36 year old s/p ROBOTIC LAPAROSCOPIC TOTAL HYSTERECTOMY, FOR UTERUS GREATER THAN 250 G 02/28/2022, 2 weeks ago here for post op visit. Her pain is well controlled on no medications. She is tolerating PO, ambulating well, voiding, passing flatus, +BMs are normal Vaginal spotting brown discharge intermittent/ no vaginal bleeding . Incisions healing well, starting to itch Used Flexeril for back pain which helped after 2 doses BP 102/78 Ht 161.8 cm (5' 3.7 ) Wt 50.8 kg (112 lb) LMP 02/11/2022 (Exact Date) BMI 19.41 kg/m PHYSICAL EXAM GEN alert and well appearing ABD soft non tender INC well healing PELVIC -deferred until next visit Lab Results Component Value Date/Time HCT 41.4 02/05/2022 09:30 AM HCT 36.7 04/04/2021 03:48 PM HCT 40.8 06/30/2019 10:23 AM HCT 38.9 10/01/2017 12:06 PM PATHOLOGY RESULTS FINAL DIAGNOSIS Uterus and cervix, hysterectomy: Cervix - Chronic cervicitis and squamous metaplasia. - Nabothian cysts. Endometrium - Benign inactive endometrium with exogenous progestin effect. Myometrium - Adenomyosis. - Benign leiomyomas with degenerative changes including edema and hyalinization. Serosa - No significant pathologic findings. Gross Description HL LAB A. UTERUS AND CERVIX Received in formalin labeled uterus and cervix are numerous irregular disrupted segments of uterine and cervical tissue weighing 674.5 g and measuring 20.4 x 13.5 x 9.0 cm in aggregate. Identifiable serosa is quiñones, smooth and unremarkable. The ectocervix is intact, and is wolf and demonstrates a patent fishmouth cervical os. Recognizable segments of endometrial cavity are quiñones and velvety with a thickness of 1 to 2 mm. No polyps or discrete lesions are grossly identified. The myometrium is remarkable for numerous areas of wolf, rubbery, whorled, bulging cut surfaces ranging in size from 0.5 to 10.5 cm in greatest dimension. There is no gross evidence of calcification, hemorrhage or necrosis. Uninvolved myometrium measures up to 2.7 cm in thickness and is unremarkable. Residential Living Assistant sections are submitted as follows: A1-A2 cervix, A3-A4 probable endomyometrium, A5 serosal surface and uninvolved myometrium, A6-A9 goodwill representative largest nodule, A10 second largest nodule, A11 third largest nodule. ASSESSMENT Encounter Diagnosis ICD-10-CM 1. Post-operative state Z98.890 2. 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 03-03-2022 Miscellaneous Notes Spoke to patient, name and verified. Patient given Dr. Ludivina Davey's message below. Verbalized understanding. Will try Flexeril for the pain. Will watch for symptoms of leg swelling, redness, tenderness in the leg she needs to call us to schedule an Us of the leg. Patient verbalized understanding. Hi, I have sent a prescription for flexeril to the patient's pharmacy. Please have her use this to see if it helps the pain. It can make her sleepy so no driving while taking this medication. If the pain persists, we may need to get an ultrasound of her leg. Please give the patient precautions and if she develops leg swelling, redness, or tenderness, should seek evaluation. Leighann Davey MD Spoke to patient, name and verified. Patient is S/P 02/28/2022 SURGERY/PROCEDURE(S): Robotic assisted total laparoscopic hysterectomy, cystoscopy Patient c/o pain in her left leg that feels like it is deep muscle pain in her inner thigh. No specific area of redness or tenderness. No calf pain. States she also has low back pain that feels like the same type of pain. Urinating with difficulty. Passing gas but no BM asyest. Taking Senna. Taking fluids well. Appetite good. No fever or chills. Up walking at home. Using Tylenol/Motrin q 3h for apin control. Working well for post op pain. Will route to [facility] fellow for advice. Patient of Dr. Osborn Status post surgery pain Patient states she has pain in her legs Patient can be reached at [phone] Emily Vergara Electronically signed by Emily ArandaJai [facility] at 03/03/2022 8:05 AM EST documented in this encounter [facility] 02-11-2022 History of Presen t illness Narrative Images from the original note were not included. [facility] [place] SECTION FOR MINIMALLY INVASIVE GYNECOLOGIC SURGERY OUTPATIENT VISIT DATE 02/11/2022 OUTPATIENT VISIT TYPE HISTORY AND PHYSICAL Referring MD: Juan A Manuel [id number] [facility] [id number] HPI: Peggy Fitzgerald is a 36 year old female patient followed in Minimally Invasive Gynecologic Surgery for preoperative history and physical for upcoming LAPAROSCOPIC HYSTERECTOMY TOTAL FOR UTERUS GREATER THAN 250G W/REMOVAL TUBE(S) AND/OR OVARY(S. She has tried all conservative measures and has decided she is ready to proceed with surgical intervention for her condition. Please see note from 04/16/2021 for full details. After thorough discussion of options, she is scheduled for the above described procedure with Dr. Osborn on 02/28/2022. Her preoperative work up has included the following: MRI PELVIS 04/12/2021 IMPRESSION: Large fibroid in the posterior body of uterus RESULT: Uterus: Size: 12.3 x 9.2 x 9.8cm Orientation: Anteverted Endometrium: Homogeneous signal intensity with no mass measuring 3 mm. Junctional zone: Maximum thickness: 3 mm, Homogeneous T2 hypointense signal Cervix: Normal Leiomyoma 1 Size: 7.8 x 7.4 x 7.8 cm (5:20 and 4:15) Location within the uterus: Posterior body Type: Intramural (FIGO 4) Enhancement: More than 50% of the lesion shows post contrast enhancement Imaging features: Hyaline degeneration present Ovaries: - Right ovary: 4 x 2.8 x 1.5 cm. Multiple small follicles. - Left ovary: 3.2 x 1.5 x 3.1 cm. Multiple small follicles. Resolution of the previously described complex cyst. Endometriosis: None Pelvis free fluid: small free fluid, likely physiologic Lymph nodes: No lymph nodes enlarged by size criteria Bones:Normal marrow signal. Hydronephrosis: no EMB results: CONVERTED FINAL DIAGNOSIS Endometrium, biopsy - Benign endometrium suggestive of hormonal therapy effect. ACV/tg 04/02/2021 PAST MEDICAL HISTORY Diagnosis Date Anemia Dysthymic disorder Depression (non-psychotic) Generalized anxiety disorder Anxiety, Generalized Undiagnosed cardiac murmurs PAST SURGICAL HISTORY Procedure Laterality Date IUD REMOVAL 2011 PAST SURGICAL HISTORY OF wisdom teeth SALPINGECTOMY Bilateral 06/01/2017 Laparoscopic Current Outpatient Medications on File Prior to Visit Medication Sig ondansetron orally disintegrating (ZOFRAN ODT) 4 mg disintegrating tablet Take 1 tablet by mouth every 8 hours as needed for nausea/vomiting. ARIPiprazole (ABILIFY) 15 mg tablet Take 7.5 mg by mouth once daily. PEG 400-propylene glycol (SYSTANE ULTRA) 0.4-0.3 % ophthalmic solution Use 1 Drop in both eyes as needed. topiramate (TOPAMAX) 25 mg tablet Take 1 tablet by mouth daily at bedtime. (Patient not taking: Reported on 06/25/2021 ) levonorgestrel (MIRENA) 20 mcg/24 hours (7 yrs) 52 mg IUD 1 Each by INTRAUTERINE route as directed. Cholecalciferol, Vitamin D3, 125 mcg (5,000 unit) cap Take 1 capsule by mouth once daily. baclofen (LIORESAL) 5 mg tablet Take 1 tablet by mouth three times daily as needed (muscle spasms). acetaminophen 325 mg-caffeine 40 mg-butalbital 50 mg (FIORICET) per capsule Take 1 capsule by mouth every 8 hours as needed for headache. (Patient not taking: Reported on 12/05/2021) MULTIVITAMIN ORAL Take by mouth. No current facility-administered medications on file prior to visit. ALLERGIES Allergen Reactions Adhesive Rash Penicillins Rash Seasonal [Other] Vicodin [Hydrocodon* Vomiting Immunization History Administered Date(s) Administered COVID-19 original vaccine, full dose, monovalent (MODERNA) 06/12/2020 07/10/2020 DTP 02/15/1986 05/05/1986 06/26/1986 10/05/1989 09/29/1991 Hepatitis B Adult 01/22/2009 Hepatitis B Peds/Adol 03/06/2009 Influenza Vaccine, Whole 02/18/2008 Novel Influenza H1N1, preservative free 03/06/2009 OPV 02/15/1986 05/05/1986 10/05/1989 09/29/1991 Tdap (Age 7+) 03/06/2009 07/01/2016 Varicella Vaccine 04/07/2009 measles mumps rubella (MMR) vaccine (M-M-R II, PRIORIX) 10/05/1989 09/24/1998 Social History Social History Narrative Not on file FAMILY HISTORY Problem Relation Age of Onset Alcohol/Drug Mother ETOH Alcohol/Drug Father ETOH Hypertension Father Alcohol/Drug Maternal Grandmother ETOH Arthritis Maternal Grandmother Diabetes Maternal Grandmother Hypertension Maternal Grandmother Alcohol/Drug Maternal Grandfather ETOH Arthritis Maternal Grandfather Heart Maternal Grandfather Hypertension Maternal Grandfather Lipids Maternal Grandfather Alcohol/Drug Paternal Grandmother ETOH Aneurysm Paternal Grandmother Alcohol/Drug Paternal Grandfather ETOH Heart Paternal Grandfather No Known Problems Son Breast Cancer Other MGAUNT No Known Problems Daughter OB History T2 L2 SAB0 IAB1 Ectopic0 Multiple0 Live Births2 OB History T2 L2 SAB0 IAB1 Ectopic0 Multiple0 Live Births2 Patient's last menstrual period was 12/31/2021 (within days). Review of Systems: Per HPI Physical Exam: 02/11/22 1433 BP: 127/82 Weight: 51.5 kg (113 lb 9.6 oz) Height: 161.8 cm (5' 3.7 ) @HTWT@ Body mass index is 19.68 kg/m . General Appearance: WDWN, NAD Psychiatric: Normal orientation, mood and affect Neck: Thyroid normal, no masses Breasts: Deferred Skin:No rashes, lesions, or ulcers Lymph: Normal neck, cervical, groin, and axillae C/V: Normal heart sounds, no murmurs or external edema Lungs: Respiratory effort normal. Lungs clear bilaterally. Abdomen: Benign, soft, non-tender, no hernia, masses, or lymphadenpathy Pelvic examination: Def Assessment and Care Plan: Peggy Fitzgerald is a 36 year old with Pelvic pain in female Abnormal uterine bleeding Fibroids for surgical management in the form of LAPAROSCOPIC HYSTERECTOMY TOTAL FOR UTERUS GREATER THAN 250G W/REMOVAL TUBE(S) AND/OR OVARY(S) scheduled with Dr. Osborn on 02/28/2022. We discussed the surgical procedure and the recovery timeline. Pt states that since she had an IUD placed, her symptoms have improved. She has confirmed that she would still like to proceed with surgery. She reports clear vaginal discharge. I explained it is likely leukorrhea, possibly caused by the fibroid. I explained that her current Mirena IUD will not stop fibroids from developing and growing, and that it will only suppress her symptoms. Pt admits anxiety about the surgery, and we discussed potential complications, including possible bladder injury or infection. Informed her that the surgery will take approximately two hours. CONSENT: The risks, benefits and alternatives as well as the indications of her planned surgery were reviewed with the patient today. Risks including but not limited to the following were outlined in detail: Bleeding rarely requiring blood transfusion with the associated risk of viral transmission of Hepatitis 1/700,000, HIV 1/2,000,000. The risks and benefits of autologous blood transfusion with predonation were also discussed. Infection requiring antibiotics, potential prolonged or re-hospitalization as well as possible re-operation. Damage to adjacent organs including but not limited to: bladder, bowels, ureters (tubes that connect kidneys to bladder), pelvic organs (ovaries, fallopian tubes, uterus or womb), blood vessels and nerves, with the possibility of re-operation. Medical complications associated with surgery and anesthesia including but not limited to: deep vein thromobosis (DVT, or blood clot in the leg), pulmonary embolus (PE, blood clot in the lungs), heart attack, stroke, or . All questions were answered to the patient s satisfaction and the informed consent as well as consent for blood transfusion was signed today. The risks and benefits of autologous blood transfusion were also reviewed and the patient has declined this option. The risks, benefits and alternatives of the planned procedure have been discussed with the patient and/or her legal goodwill representative, all questions have been answered and she agrees to proceed. Scribe Attestation: By signing my name below, I, Haleigh Tanner, attest that this documentation has been prepared under the direction and in the presence of Dr. Juan A Osborn MD. Electronically Signed:yossi Morrissey, February 04, 2022 8:09 AM documented in this encounter [facility] 02-11-2022 Instructions Haleigh Tanner - 02/11/2022 2:43 PM EST HELIARC WELDER [phone] OFFICE [phone] [id number] [facility] SCH[facility] documented in this encounter [facility] 02-11-2022 Instructions Valeria Duvall LPN - 02/11/2022 1:29 PM EST Images from the original note were not included. MINIMALLY INVASIVE GYNECOLOGIC SURGERY (MIGS)/BENIGN GYNECOLOGY CONTACTS: Surgeons: Dr. Adelaida Webster Dr. Olivia Winters Dr. Mahogany Patricia Dr. Juan A Manuel Dr. Sharona Rivera Dr. Margaret Chance Dr. Elly Tai Dr. Cyndi Allen Dr. Adriana Sin Nurse Practitioners: Ava Lang APRN.STEELSCOPE OPERATOR Daisy Flannery STEWARD/STEWARDESS BATH.STEELSCOPE OPERATOR Patti Bright STEWARD/STEWARDESS BATH.STEELSCOPE OPERATOR Gail Bales STEWARD/STEWARDESS BATH.[facility] Surgery Scheduling Office: Call the day before surgery after 2pm for your surgery arrival time After hours phone number: or toll free Ask the textile coating machine operator to page the noodle press operator specialty sales consultant.' Business hours are Thursday - Thursday from 8:00am - 4:30pm. We are closed on weekends and major holidays. PRE-OPERATIVE CHECKLIST: PATIENT INSTRUCTIONS PRIOR TO SURGERY Our guidelines have changed, so please read these instructions carefully. Your surgery may be cancelled if you do not follow these instructions. MY ARRIVAL TIME IS: I have been instructed not to have any solid food to eat after midnight prior to my surgery (this includes no gum, mints, smoking). I am allowed to drink small amounts (up to 12 oz) of clear liquids up until 2 hours prior to my arrival time. Clear liquids include water, fruit juices without pulp, carbonated beverages (i.e. aries tori), electrolyte beverages (i.e. Gatorade), clear tea and black coffee, clear broth, popsicles and jello. (No milk). No alcohol the day before or day of surgery. I will bring this binder to all pre and post-operative appointments AND day of surgery. MEDICATION STOPPAGE: Unless my surgeon tells me differently, I will STOP THESE MEDICATIONS 7 DAYS PRIOR TO SURGERY: (Motrin/ibuprofen/Naproxen/Aleve /Advil), Aspirin, vitamin E, herbal medications, diet pills, and rxnb-[id number] medications. Tylenol (acetaminophen) is okay. I will not wear jewelry, body piercing(s), makeup, nail yi, hairpins, or contacts on the day of surgery. I am to leave valuables and money at home or with family members. If I am prescribed inhalers for breathing, I will use them and bring them to the hospital. Medication(s) to be taken on the morning of surgery with a few sips of water: If I am taking any of the following blood thinning medications - Aspirin, clopidogrel (Plavix), ticagrelor (Brilinta), prasugrel (Efficient), ticlodipine (Ticlid), warfarin (Coumadin), dibigatran (Pradaxa) or rivaroxaban (Xarelto) - I will discuss whether or not I should stop them before surgery with my surgeon. Discuss medication changes with your salon supervisor or primary care physician as well. If I stopped taking my blood-thinning medication, I will ask the surgeon when to resume taking it. If I am an outpatient, a responsible person will drive me home and it was suggested that someone stay with me for 24 hours. I understand that a it business systems analyst or cabdriver is NOT a responsible caregiver. Patients with diabetes, I will not take my morning diabetes medication (pills) on the morning of surgery. If I am on insulin, someone has gone over those instructions with me for the morning of surgery. I understand if my surgery is delayed, I will notify the check in desk that I have diabetes. See the Diabetic Guidelines Before Surgery in the patient education section. If I have Obstructive Sleep Apnea and use a CPAP/BiPAP machine, I will bring my mask, tubing, and machine with me on the day of surgery. Pain management education material found in Your Surgical Guide was reviewed with me. To find out my arrival time for surgery, I must call my surgical scrub technician after 2pm the day before surgery. Pre-operative instructions given by: PREOP INSTRUCTIONS THE DAY OF SURGERY/CHECK IN Surgery Location Parking Check-in Location [facility] [address]. [place], [place] Parking garage next to hospital or [place] [address] Surgical Waiting Desk INFECTION PREVENTION Please notify your doctor if you have any signs of an infection (i.e. fever, severe cough, nasal congestion, pain with urination, abnormal vaginal discharge, diarrhea, etc). Your surgeon will let you know if a bowel prep is needed before your surgery. If so, please see the attached instructions. Shower the night before surgery AND the morning of surgery with Hibiclens (provided by your surgeon). If you are allergic to Hibiclens or unable to obtain the Hibiclens, please wash with antibacterial soap. Wash your body from the neck down, focusing on your abdomen, belly button and external genitalia. Do not forget to scrub any skin folds and creases. No lotions, oils, creams, or powders after your shower. Underarm deodorant is okay. No shaving (abdominal or pubic hair) or douching the day before surgery. You may be asked to apply an antiseptic solution called Chlorhexidine Gluconate (CHG) which will be provided to you on arrival to the preop area. Hand washing is extremely important in preventing infection (for both you as the patient and for the caregivers). HOSPITALIZATION Before you leave the hospital, you typically need to be able to eat/drink, urinate, and have your pain controlled with oral medication. Your surgeon or other members of your surgeon s team will discuss any other specific medical issues related to your discharge with you. Your surgeon may order intermittent compression sleeves. These are massaging leg pumps to help prevent blood clots after surgery. See Your Surgical Guide Book for more information. It is also very important that you walk as soon as possible and as frequently as possible after surgery. This will help decrease your risk of blood clots, exercise your lungs and speed up your recovery after surgery. If you are admitted to the hospital overnight, you will be given an incentive spirometer, which is a breathing machine that will help make sure that you are taking deep breaths and expanding your lungs while in the hospital. See Your Surgical Guide Book for more information. [facility] TEAM At the [facility], we have a multidisciplinary team of caregivers that includes fellows, residents, nurse practitioners, physician assistants, clinical nurse specialists, nurses, medical assistants, patient care nursing assistants, social workers, nurse case manager and many others. We all have different roles and responsibilities but we are all here to help. MINIMALLY INVASIVE HYSTERECTOMY POSTOPERATIVE INSTRUCTIONS ACTIVITY * No heavy lifting/pushing/pulling for 6 weeks. Do not lift anything more than 10 lbs (such as laundry, groceries, children, pets), vacuum, push heavy doors or grocery carts, etc, for 6 weeks. * You may climb stairs as tolerated. * Do not put anything in the vagina for at least 6-8 weeks after surgery unless otherwise instructed by your doctor (including tampons, douching, sexual intercourse, etc). * No driving for 1 week after surgery and not while taking narcotic pain medication. Drive defensively when you are ready. * Avoid sitting or lying in bed for more than 2 hours at a time while you are awake to reduce your risk of blood clots. * You may return to work when you are ready as long as you do not lift more than 10 pounds for 6 weeks. If you have a sedentary job or deli worker 1-2 weeks before returning to work is appropriate. You may return to work in 2-4 weeks if your job requires a lot of movement. Please contact your doctor if you need any return to work letters or medical leave paperwork to be completed. WOUND CARE * If you had a laparoscopic or robotic hysterectomy, you will have small incisions on your abdomen. There will be dissolvable stitches under your skin that do not need to be removed. If you have a piece of gauze with a clear bandage over your belly button, please remove that the day after surgery when you shower. If you have steri-strips (paper tape) on the incisions, these may be removed in about 1-2 weeks. It is OK to remove them if they are falling off. If skin glue is present, leave in place for at least 2 weeks. * Shower daily after surgery. Clean your incision with mild antibacterial soap and water. Pat your incision dry with a clean towel. No tub baths or swimming pools for six weeks or until wound is completely healed. * No ointments or antibacterial creams are required for incisions. Do NOT use cleansing agents like alcohol or hydrogen peroxide. * Wash your hands frequently, especially before touching your incision or changing any dressings. PAIN MANAGEMENT * Take your oral pain medication as needed. * Alternate Tylenol and ibuprofen/Motrin (if you are eligible). Each of these medications can be taken every six hours. Try to stagger them so that you are taking something for pain every three hours (ex. Take Motrin at 12:00, Tylenol at 3:00, Motrin at 6:00, etc.) to maximize pain relief. You should be taking 600mg of ibuprofen every 6 hours. You should be taking 1,000mg of tylenol every 6 hours. You should take every 6 hours with staggering and alternating. For example. 9am - ibuprofen 12pm - tylenol 3pm - ibuprofen 6pm - tylenol 9pm - ibuprofen 12am - tylenol 3am - ibuprofen 6am - tylenol Studies show this is as effective as narcotics for pain control without the side effects. Dosages * Tylenol - 500-650 mg every 6 hours as needed * Motrin - 600 mg every 6 hours as needed * The maximum dose of Tylenol is 3000 mg in 24 hours, the maximum dose of Motrin/ibuprofen is 2400mg in 24 hours * Some pain medications can cause constipation. We recommend a stool softener (i.e. Colace) while you take these medications. * You may also take milk of magnesia or Miralax for constipation as directed on the bottle. * There is a risk for addiction with narcotic pain medication, so take with caution and do not take more than the recommended amount. * Please be sure to dispose of leftover pain medication after you have recovered. You may dispose of unused narcotic medications in the trash with an unpleasant substance such as coffee grounds or cat litter or you can turn them in to a designated law enforcement/pharmacy narcotic box. You can also check FDA.gov to assess which medications can be safely flushed down the toilet. * There are locations to dispose of unused medications at three [facility] locations: [facility] pharmacy, [facility] pharmacy, and the Pharmacy [facility] (inside the parking garage on the first floor). WHAT TO EXPECT AT HOME * Recovery from surgery is generally 2-4 weeks, but sometimes longer for more strenuous activity. It is normal to be very tired during this time. * It is normal to have some drainage or a small amount of vaginal bleeding after surgery that would require the use of a light pantiliner. This discharge may last up to 6 weeks. The bleeding and discharge should be light and should have no odor. * You may experience gas pain, abdominal swelling, or shoulder pain for 24-72 hours after surgery. This is from the carbon dioxide gas put into your abdomen to better visualize your organs. A warm shower, heating pad, and/or walking may help. WHEN TO CALL YOUR DOCTOR: * Fever (>100.4 F or 38.0 C) or chills. * Incision problems such as redness, warmth, swelling, or foul smelling drainage. * Severe nausea or persistent vomiting. * Bright red vaginal bleeding (soaking >1 pad/hour) or foul smelling vaginal drainage. * IT IS NORMAL TO HAVE A MINIMAL AMOUNT OF VAGINAL SPOTTING OR VAGINAL DISCHARGE FOR SEVERAL WEEKS * Severe pain not relieved with pain medication. * Pain and swelling in your legs, especially if it is only on one side. * Pain with urination, cloudy urine, or foul smelling urine. * Severe redness/irritation at sites where adhesive bandages were applied. * Or if you have any other problems or questions. FREQUENTLY ASKED QUESTIONS/CONCERNS: Constipation Constipation is common and it is normal to not have a bowel movement for up to one week after surgery. You should still be passing gas despite constipation and should be able to tolerate both liquid and solid food without nausea or vomiting. Concerning symptoms would be constipation without gas, with fever, or nausea/vomiting and inability to eat. Call your doctor if these symptoms occur. Over the counter stool softeners including Colace twice daily and Miralax up to twice daily can help with constipation. 1. Senna (1 capsule) two times a day 2. Miralax (polyethylene glycol) 17 g (1 measured capful or 1 packet) once a day. If you have not had a bowel movement 3 days after surgery, you may take the Miralax two times a day. If you have any discomfort because of the need to have a bowel movement, you may add milk of magnesia or magnesium citrate (available at your local pharmacy without a prescription) at any time. Do not take milk of magnesia or magnesium citrate if you have kidney failure. If you have loose or watery stools, stop taking the medications. Call your doctor s office if you have questions. Drainage from incisions Clear/pink drainage or a minimal amount of bleeding from incisions can be normal after laparoscopic surgery. Concerning drainage that is persistent, thick/cloudy, or foul smelling can be an indication of infection and should prompt you to call your doctor. Post-operative pain Pain after surgery is a challenging part of the healing process. Pain may be present for weeks but should gradually get better. Increasing pain or pain that is unbearable warrants evaluation by your doctor or in the emergency department. By state law we cannot immediately provide narcotic pain medication over the phone. Stitches If 2 weeks have passed and you have a visible stitch at a laparoscopic incision site it is OK for you to cut it to remove it. CALL 911 OR GO TO THE EMERGENCY ROOM IF YOU HAVE: Any shortness of breath, difficulty breathing, or chest pain. IF YOU FEEL YOU NEED TO GO TO THE EMERGENCY DEPARTMENT POST OPERATIVELY, WE RECOMMEND THE MAIN CAMPUS EMERGENCY DEPARTMENT FOR CONTINUITY OF CARE AND THE BEST ACCESS TO ONE OF THE SURGEONS ON OUR TEAM. Address: [facility] [place] [address] documented in this encounter [facility] 02-11-2022 History of Presen t illness Narrative DATE OF SERVICE: 02/13/2022 PROBLEM: Peggy Fitzgerald presents for pre-op teaching. PRE-OP DIAGNOSIS: pelvic and perineal pain, AUB, and intramural leiomyoma of uterus SCHEDULED SURGERY AND DATE: 02-28-22 [place] LAPAROSCOPIC HYSTERECTOMY TOTAL FOR UTERUS GREATER THAN 250G W/REMOVAL TUBE(S) AND/OR OVARY(S) PRIMARY SURGEON: Juan A Manuel MD NURSING PREOP ASSESSMENT: Fevers, chills, cough, or nasal congestion: No Vaginal itching, burning, discharge, or odor: No Pain with urination, frequency, urgency, cloudy or foul smelling urine: No If yes to any of the above then MD notified: Not Applicable ADVANCED CARE PLANNING: Does the patient have an advanced directive: No Does [facility] have a copy of the patient's advanced directive: No Was advanced directive given to the patient: No PATIENT LEARNING ASSESSMENT: Individual patient/family learning needs evaluated and addressed: Yes Cognitive ability: Alert and oriented Motivation to learn: Interested Factors affecting learning: None Physical limitations affecting learning: None Patient learns best by: Multiple Methods Method of instruction: Individual instruction Instructions provided to: Patient via telephone. Written material provided prior to education appointment. Family support: High - Very involved in pt care PRE- AND POST-OPERATIVE TEACHING Pre-operative teaching and supplemental material provided and reviewed with patient: Written pre-op and post-op instructions Antibacterial soap: patient declined, will use own Pre-operative instructions provided and reviewed with patient/family: No eating, drinking, or smoking after midnight prior to surgery unless otherwise directed No alcohol the day before surgery Medications as prescribed by anesthesia, internal medicine, surgeon, or MOISTURE METER OPERATOR Stop NSAIDs, Aspirin (ASA), vitamins, herbal supplements, herbal teas, and diet pills 7-10 days prior to surgery OK to take tylenol prn pain unless otherwise directed by physician Call surgery coordinators if any other questions about surgery date or pre-op appointments Bowel prep instructions: NPO after midnight Day of surgery instructions provided and reviewed with patient/family: Arrival time (call surgical coordinators on the office day prior to surgery for verification) No jewelry, body piercing, makeup, contacts, lotions, nail yi on fingers, or anything in hair on arrival to surgery Wear low healed shoes and loose fitting clothing Leave all valuables at home or with a family member Directions to [facility] [place] Parking/parking validation on the day prior to surgery Admission/check in Holding area Placement of IV Surgical positioning Family waiting area Surgical recovery room Post-operative instructions provided and reviewed with patient/family: SEE PATIENT INSTRUCTION SECTION FOR DETAILS. SYMPTOMS TO NOTIFY MD - Fever, chills, nausea, vomiting, increased or severe pain, heavy vaginal bleeding, foul smelling vaginal drainage, pain or swelling in extremities. URGENT SYMPTOMS - Call 911 or go to ER if any shortness of breath, difficulty breathing, or chest pain. HOW TO CONTACT PHYSICIAN - Physician's office phone number given to patient, if after hours patient instructed to call textile coating machine operator and ask for specialty sales consultant noodle press operator onc resident. ALESSANDRO program offered to patient: Yes Additional teaching as indicated by patient/family learning needs. PATIENT LEARNING EVALUATION & FOLLOW UP PLAN: Patient and/or family express understanding of upcoming surgery, pre-operative preparation, the operative process, and post-operative instructions. Follow up plan: Patient instructed to call with any further issues Patient has a post-op appointment scheduled: Yes 03-14-22 at 9am with Ava Lang Referral (recommentation): None Educator: Valeria Duvall LPN [facility] documented in this encounter [facility] 01-01-2022 Miscellaneous Notes Called patient left message to call back to reschedule surgery. Claudia HURLEY documented in this encounter [facility] 12-05-2021 History of Presen t illness Narrative SUBJECTIVE: Peggy Fitzgerald is a 36 year old female. Who presents today with vomiting, sore throat, fever and headache. She has vomited 10 times since last night. She was able to keep chick and rice down last night. But nothing so far today. She went with the school on a field trip and was exposed to others who are sick. She denies any fever. She took tylenol yesterday HPI PAST MEDICAL HISTORY Diagnosis Date Anemia Dysthymic disorder Depression (non-psychotic) Generalized anxiety disorder Anxiety, Generalized Undiagnosed cardiac murmurs FAMILY HISTORY Problem Relation Age of Onset Alcohol/Drug Mother ETOH Alcohol/Drug Father ETOH Hypertension Father Alcohol/Drug Maternal Grandmother ETOH Arthritis Maternal Grandmother Diabetes Maternal Grandmother Hypertension Maternal Grandmother Alcohol/Drug Maternal Grandfather ETOH Arthritis Maternal Grandfather Heart Maternal Grandfather Hypertension Maternal Grandfather Lipids Maternal Grandfather Alcohol/Drug Paternal Grandmother ETOH Aneurysm Paternal Grandmother Alcohol/Drug Paternal Grandfather ETOH Heart Paternal Grandfather No Known Problems Son Breast Cancer Other MGAUNT No Known Problems Daughter Social History Tobacco Use Smoking status: Every Day Packs/day: 0.25 Years: 15.00 Pack years: 3.75 Types: Cigarettes Smokeless tobacco: Never Tobacco comments: 4 cigarettes a day Vaping Use Vaping Use: current everyday user Substances: Nicotine, Flavoring Devices: Pre-filled or refillable cartridge Substance Use Topics Alcohol use: Yes Comment: Occasionally, not while Drug use: Yes Frequency: 1.0 times per week Types: Marijuana ALLERGIES Allergen Reactions Adhesive Rash Penicillins Rash Seasonal [Other] Vicodin [Hydrocodon* Vomiting Current Outpatient Medications Medication Sig Dispense Refill ARIPiprazole (ABILIFY) 15 mg tablet Take 7.5 mg by mouth once daily. PEG 400-propylene glycol (SYSTANE ULTRA) 0.4-0.3 % ophthalmic solution Use 1 Drop in both eyes as needed. 10 mL 2 levonorgestrel (MIRENA) 20 mcg/24 hours (7 yrs) 52 mg IUD 1 Each by INTRAUTERINE route as directed. 1 Each 0 Cholecalciferol, Vitamin D3, 125 mcg (5,000 unit) cap Take 1 capsule by mouth once daily. 90 capsule 1 baclofen (LIORESAL) 5 mg tablet Take 1 tablet by mouth three times daily as needed (muscle spasms). 30 tablet 1 MULTIVITAMIN ORAL Take by mouth. topiramate (TOPAMAX) 25 mg tablet Take 1 tablet by mouth daily at bedtime. (Patient not taking: Reported on 06/25/2021 ) 90 tablet 1 acetaminophen 325 mg-caffeine 40 mg-butalbital 50 mg (FIORICET) per capsule Take 1 capsule by mouth every 8 hours as needed for headache. (Patient not taking: Reported on 12/05/2021) 30 capsule 0 No current facility-administered medications for this visit. OBJECTIVE: BP 100/72 Pulse 75 Temp (!) 35.9 C (96.7 F) Resp 21 Wt 49.8 kg (109 lb 12.8 oz) LMP 09/26/2021 SpO2 99% BMI 19.45 kg/m ROS: All systems reviewed and are otherwise negative Constitutional: Well developed, well nourished, A&O X3. ENT: Head is atraumatic, airway patent, mucosal membranes moist Eyes: EOMI, PERRL, no drainage, vision unchanged Neck: full ROM, no meningeal signs Cardiac: heart tones regular rate and rhythm Respiratory: lung CTA : no CVA tenderness MS: moves all extremities, no deformities noted Neuro: GCS 15 no focal deficits Skin: warm and dry with out rash, lesion or ecchymosis Psych: alert appropriate, speech clear Diagnostic testing: COVID/ Influenza A and B testing performed and results will be complete in the next 24-72 hours. The patient will be notified of the results in My Chart. MDM: Patient presented to the [facility] today for COVID and Influenza testing. Vital signs were evaluated and found to be within normal limits. Peggy Fitzgerald was in no acute distress. We discussed the COVID results will be back in the next 1-2 days. In accordance with the CDC guidelines, Peggy Fitzgerald was instructed to quarantine, if indicated, based on symptoms and exposure. For her vomiting I will send in a script for zofran she may take this medication to help her keep fluids down to stay hydrated. They will follow-up with their family doctor in the next 2-3 days. If symptoms worsen they will go straight to the emergency department for further evaluation and treatment. They voiced understanding of the plan of care and are in agreement. ASSESSMENT/PLAN: 1. Exposure to 2019 novel coronavirus - ICD9: V01.79, ICD10: Z20.822 (primary diagnosis) - COVID WITH FLUA+B, ROUTINE 2. Nausea and vomiting, unspecified vomiting type - ICD9: 787.01, ICD10: R11.2 - ONDANSETRON 4 MG DISINTEGRATING TABLET Saira Stover APRN.CNP documented in this encounter [facility] 10-17-2021 Instructions Sakshi Rebollar APRN.CNP - 10/17/2021 8:25 AM EDT Images from the original note were not included. Adult Sinusitis Patient Education What is Sinusitis? Sinusitis [ghwp-nyc-htob-tis] is inflammation of the sinuses or swelling of the lining of the sinus cavity or nose. During an infection the sinuses become blocked with fluid causing swelling of the lining of the sinuses. Symptoms: (viral and bacterial infections) Stuffy nose Runny nose Postnasal drip Fever Toothache Headache Tiredness Cough Sore throat Face and head pressure and or pain Common causes: 98% of sinus infections are viral caused by viruses. Risk Factors of Sinusitis Include: Allergies, air pollution, indoor humidity and outdoor temperature changes, andstructural changes in the nose may contribute to sinus pain, pressure and congestion. When to get help? Temperature greater than 100.4 F Symptoms lasting more than 10 days or worsening symptoms greater than 7-10 days. If you do not improve or worsen after a course of antibiotics, you should be re-examined. Diagnosis and Treatment: Your healthcare provider will ask a number of questions about your symptoms and how long they have occurred. If symptoms of sinusitis persist greater than 10 days, it is possible you have a bacterial sinus infection and an antibiotic is prescribed. If it is viral, antibiotics will not help. You may be instructed to take upuu-yin-vtkkjzs medications for symptoms. including fever reducers acetaminophen or ibuprofen, nasal saline spray, cough and cold preparations and decongestants as prescribed by the physician, nurse practitioner or physician credit control assistant. Self-Care and Prevention: Rest Fluids for hydration Good hand washing Humidifier Avoid smoking and exposure to second hand smoke Avoid sick contacts documented in this encounter [facility] 10-17-2021 History of Presen t illness Narrative This note was created using NoteWriter. Subjective Peggy Fitzgerald is a 35 year old female. 35 year old female with PMH migraine presents for illness. Acute onset October 05 +thick green and chunky nasal drainage. + PND +sinus pressure +headache +fatigue Denies SOB or dyspnea. Denies abdominal pain. Utilized Tylenol Cold and Flu, but threw up. Has utilized Zycam. Utilizes vapes The history is provided by the patient. No american sign language teacher was used. Sinusitis This is a new problem. The current episode started 1 to 4 weeks ago. The problem has been gradually worsening since onset. There has been no fever. Her pain is at a severity of 5/10. The pain is moderate. Associated symptoms include congestion, coughing, headaches and sinus pressure. Pertinent negatives include no chills, diaphoresis, ear pain, hoarse voice, neck pain, shortness of breath, sneezing, sore throat or swollen glands. Treatments tried: Tylenol Cold and Flu. The treatment provided no relief. PAST MEDICAL HISTORY Diagnosis Date Anemia Dysthymic disorder Depression (non-psychotic) Generalized anxiety disorder Anxiety, Generalized Undiagnosed cardiac murmurs PAST SURGICAL HISTORY Procedure Laterality Date IUD REMOVAL 2011 PAST SURGICAL HISTORY OF wisdom teeth SALPINGECTOMY Bilateral 06/01/2017 Laparoscopic ALLERGIES Adhesive, Penicillins, Seasonal [Other], and Vicodin [Hydrocodone-Acetaminophen] MEDICATIONS ARIPiprazole (ABILIFY) 15 mg tablet Take 7.5 mg by mouth once daily. levonorgestrel (MIRENA) 20 mcg/24 hours (7 yrs) 52 mg IUD 1 Each by INTRAUTERINE route as directed. baclofen (LIORESAL) 5 mg tablet Take 1 tablet by mouth three times daily as needed (muscle spasms). acetaminophen 325 mg-caffeine 40 mg-butalbital 50 mg (FIORICET) per capsule Take 1 capsule by mouth every 8 hours as needed for headache. MULTIVITAMIN ORAL Take by mouth. doxycycline monohydrate 100 mg tablet Take 1 tablet by mouth twice daily for 7 days. PEG 400-propylene glycol (SYSTANE ULTRA) 0.4-0.3 % ophthalmic solution Use 1 Drop in both eyes as needed. topiramate (TOPAMAX) 25 mg tablet Take 1 tablet by mouth daily at bedtime. (Patient not taking: Reported on 06/25/2021 ) Cholecalciferol, Vitamin D3, 125 mcg (5,000 unit) cap Take 1 capsule by mouth once daily. FAMILY HISTORY Problem Relation Age of Onset Alcohol/Drug Mother ETOH Alcohol/Drug Father ETOH Hypertension Father Alcohol/Drug Maternal Grandmother ETOH Arthritis Maternal Grandmother Diabetes Maternal Grandmother Hypertension Maternal Grandmother Alcohol/Drug Maternal Grandfather ETOH Arthritis Maternal Grandfather Heart Maternal Grandfather Hypertension Maternal Grandfather Lipids Maternal Grandfather Alcohol/Drug Paternal Grandmother ETOH Aneurysm Paternal Grandmother Alcohol/Drug Paternal Grandfather ETOH Heart Paternal Grandfather No Known Problems Son Breast Cancer Other MGAUNT No Known Problems Daughter Social History Tobacco Use Smoking status: Every Day Packs/day: 0.25 Years: 15.00 Pack years: 3.75 Types: Cigarettes Smokeless tobacco: Never Tobacco comments: 4 cigarettes a day Vaping Use Vaping Use: current everyday user Substances: Nicotine, Flavoring Devices: Pre-filled or refillable cartridge Substance Use Topics Alcohol use: Yes Comment: Occasionally, not while Drug use: Yes Frequency: 1.0 times per week Types: Marijuana Review of Systems Constitutional: Negative for chills, diaphoresis, fatigue and fever. HENT: Positive for congestion, postnasal drip, rhinorrhea, sinus pressure and sinus pain. Negative for ear pain, hoarse voice, sneezing and sore throat. Eyes: Negative for photophobia, pain, discharge, redness and itching. Respiratory: Positive for cough. Negative for apnea, choking, chest tightness and shortness of breath. Cardiovascular: Negative for chest pain, palpitations and leg swelling. Gastrointestinal: Negative for abdominal pain, diarrhea, nausea and vomiting. Musculoskeletal: Negative for arthralgias, back pain, gait problem and neck pain. Skin: Negative for color change, pallor, rash and wound. Allergic/Immunologic: Positive for environmental allergies. Negative for food allergies and immunocompromised state. Neurological: Positive for headaches. Negative for dizziness, facial asymmetry, light-headedness and numbness. Hematological: Negative for adenopathy. Does not bruise/bleed easily. Psychiatric/Behavioral: Negative for agitation and behavioral problems. Objective BP 114/68 Pulse 93 Temp 36.7 C (98 F) Resp 18 Wt 48.7 kg (107 lb 6.4 oz) LMP 09/26/2021 SpO2 98% BMI 19.03 kg/m Physical Exam Vitals and nursing note reviewed. Constitutional: General: She is not in acute distress. Appearance: Normal appearance. She is normal weight. She is not ill-appearing, toxic-appearing or diaphoretic. HENT: Head: Normocephalic and atraumatic. Comments: +maxillary sinus TTP Right Ear: Ear canal and external ear normal. Left Ear: Ear canal and external ear normal. Nose: Nose normal. No congestion or rhinorrhea. Mouth/Throat: Mouth: Mucous membranes are moist. Pharynx: Posterior oropharyngeal erythema present. No oropharyngeal exudate. Eyes: General: Right eye: No discharge. Left eye: No discharge. Extraocular Movements: Extraocular movements intact. Conjunctiva/sclera: Conjunctivae normal. Pupils: Pupils are equal, round, and reactive to light. Cardiovascular: Rate and Rhythm: Normal rate and regular rhythm. Pulses: Normal pulses. Heart sounds: Normal heart sounds. No murmur heard. No friction rub. Pulmonary: Effort: Pulmonary effort is normal. No respiratory distress. Breath sounds: Normal breath sounds. No stridor. No wheezing, rhonchi or rales. Chest: Chest wall: No tenderness. Abdominal: General: Abdomen is flat. There is no distension. Palpations: Abdomen is soft. There is no mass. Tenderness: There is no abdominal tenderness. There is no right CVA tenderness, left CVA tenderness, guarding or rebound. Hernia: No hernia is present. Musculoskeletal: General: No swelling, tenderness, deformity or signs of injury. Normal range of motion. Cervical back: Normal range of motion and neck supple. No rigidity. Right lower leg: No edema. Left lower leg: No edema. Lymphadenopathy: Cervical: No cervical adenopathy. Skin: General: Skin is warm and dry. Capillary Refill: Capillary refill takes less than 2 seconds. Coloration: Skin is not jaundiced or pale. Findings: No bruising, erythema, lesion or rash. Neurological: General: No focal deficit present. Mental Status: She is alert and oriented to person, place, and time. Cranial Nerves: No cranial nerve deficit. Sensory: No sensory deficit. Motor: No weakness. Coordination: Coordination normal. Gait: Gait normal. Psychiatric: Mood and Affect: Mood normal. Behavior: Behavior normal. Thought Content: Thought content normal. Judgment: Judgment normal. Assessment and Plan ASSESSMENT/PLAN: 1. Acute sinusitis, recurrence not specified, unspecified location - ICD9: 461.9, ICD10: J01.90 - Will begin treatment with as per antibiotic as written, see orders - The patient should also be given OTC cough and cold meds as needed, warm salt water gargles, throat lozenges and/or OTC throat spray as needed, and nasal saline gtts and suction prn for the first 5-7 days of treatment. - Supportive care with plenty of fluids, rest, and analgesia prn. - Follow up in 3-5 days if symptoms persist or worsen. Sakshi Rebollar APRN.DONTAE documented in this encounter [facility] 06-25-2021 History of Presen t illness Narrative 1. Punctate keratitis, bilateral Much improvement with artificial tears and once going off of topiramate Continue tears as needed 2. Regular astigmatism of both eyes Continue with current glasses-doing well Follow-up yearly or sooner with any new or worsening symptoms. Alisha Breaux, BALDEV June 25, 2021 3:32 PM documented in this encounter [facility] 05-30-2021 History of Presen t illness Narrative Patient verified by name, presented Toradol 60 mg/ 2 ML. Allergies verified, injection administered (RT) GM. Patient tolerated injection well, no redness or bruising noted. Carol Silver LPN This note was created using NoteWriter. Subjective Peggy E Hamric is a 35 year old female. 35 year old female with no significant PMH presents for illness. Acute onset May 19 States felt like I was getting sick The next day was the sore throat This past weekend she developed cough Dry and harsh cough +body aches + fatigue Denies accompanying URI symptoms. Denies SOB or dyspnea. Denies N/V/D +vape tobacco. Has used Tylenol and Airborne/Zycam Has used Elderberry syrup. Endorses her daughter is ill as well. The history is provided by the patient. No american sign language teacher was used. Illness The current episode started more than 1 week ago. The onset was gradual. The problem occurs continuously. The problem has been unchanged. The problem is mild. Nothing relieves the symptoms. Nothing aggravates the symptoms. Associated symptoms include congestion, sore throat, muscle aches and cough. Pertinent negatives include no fever, no decreased vision, no double vision, no eye itching, no photophobia, no abdominal pain, no constipation, no diarrhea, no nausea, no vomiting, no ear discharge, no ear pain, no headaches, no hearing loss, no mouth sores, no rhinorrhea, no stridor, no swollen glands, no neck pain, no wheezing, no rash, no eye discharge, no eye pain and no eye redness. Urine output has been normal. The last void occurred less than 6 hours ago. There were sick contacts at home. She has received no recent medical care. PAST MEDICAL HISTORY Diagnosis Date Anemia Dysthymic disorder Depression (non-psychotic) Generalized anxiety disorder Anxiety, Generalized Undiagnosed cardiac murmurs PAST SURGICAL HISTORY Procedure Laterality Date IUD REMOVAL 2011 PAST SURGICAL HISTORY OF wisdom teeth SALPINGECTOMY Bilateral 06/01/2017 Laparoscopic ALLERGIES Adhesive, Penicillins, Seasonal [Other], and Vicodin [Hydrocodone-Acetaminophen] MEDICATIONS topiramate (TOPAMAX) 25 mg tablet Take 1 tablet by mouth daily at bedtime. levonorgestrel (MIRENA) 20 mcg/24 hours (7 yrs) 52 mg IUD 1 Each by INTRAUTERINE route as directed. Cholecalciferol, Vitamin D3, 125 mcg (5,000 unit) cap Take 1 capsule by mouth once daily. baclofen (LIORESAL) 5 mg tablet Take 1 tablet by mouth three times daily as needed (muscle spasms). acetaminophen 325 mg-caffeine 40 mg-butalbital 50 mg (FIORICET) per capsule Take 1 capsule by mouth every 8 hours as needed for headache. MULTIVITAMIN ORAL Take by mouth. predniSONE (DELTASONE) 10 mg tablet Take 6 tabs for 3 days, then 4 tabs for 3 days, then 2 tabs for 3 days then 1 tab for 3 days with food. PEG 400-propylene glycol (SYSTANE ULTRA) 0.4-0.3 % ophthalmic solution Use 1 Drop in both eyes as needed. FAMILY HISTORY Problem Relation Age of Onset Alcohol/Drug Mother ETOH Alcohol/Drug Father ETOH Hypertension Father Alcohol/Drug Maternal Grandmother ETOH Arthritis Maternal Grandmother Diabetes Maternal Grandmother Hypertension Maternal Grandmother Alcohol/Drug Maternal Grandfather ETOH Arthritis Maternal Grandfather Heart Maternal Grandfather Hypertension Maternal Grandfather Lipids Maternal Grandfather Alcohol/Drug Paternal Grandmother ETOH Aneurysm Paternal Grandmother Alcohol/Drug Paternal Grandfather ETOH Heart Paternal Grandfather No Known Problems Son Breast Cancer Other MGAUNT No Known Problems Daughter Social History Tobacco Use Smoking status: Current Every Day Smoker Packs/day: 0.25 Years: 15.00 Pack years: 3.75 Types: Cigarettes Smokeless tobacco: Never Used Tobacco comment: 4 cigarettes a day Vaping Use Vaping Use: current everyday user Substances: Nicotine, Flavoring Devices: Pre-filled or refillable cartridge Substance Use Topics Alcohol use: Yes Comment: Occasionally, not while Drug use: Yes Frequency: 1.0 times per week Types: Marijuana Review of Systems Constitutional: Positive for fatigue. Negative for activity change, appetite change and fever. HENT: Positive for congestion and sore throat. Negative for ear discharge, ear pain, hearing loss, mouth sores and rhinorrhea. Eyes: Negative for double vision, photophobia, pain, discharge, redness and itching. Respiratory: Positive for cough. Negative for apnea, chest tightness, wheezing and stridor. Cardiovascular: Negative for chest pain, palpitations and leg swelling. Gastrointestinal: Negative for abdominal pain, constipation, diarrhea, nausea and vomiting. Musculoskeletal: Positive for myalgias. Negative for neck pain. Skin: Negative for color change, pallor and rash. Allergic/Immunologic: Negative for environmental allergies, food allergies and immunocompromised state. Neurological: Negative for dizziness, facial asymmetry and headaches. Hematological: Negative for adenopathy. Does not bruise/bleed easily. Psychiatric/Behavioral: Negative for agitation and behavioral problems. Objective BP 120/76 Pulse 80 Temp (!) 35.9 C (96.7 F) Resp 18 Wt 48.3 kg (106 lb 6.4 oz) LMP 04/15/2021 SpO2 99% BMI 18.85 kg/m Physical Exam Vitals and nursing note reviewed. Constitutional: General: She is not in acute distress. Appearance: Normal appearance. She is normal weight. She is not ill-appearing, toxic-appearing or diaphoretic. HENT: Head: Normocephalic and atraumatic. Right Ear: Ear canal and external ear normal. Left Ear: Ear canal and external ear normal. Nose: Nose normal. No congestion or rhinorrhea. Mouth/Throat: Mouth: Mucous membranes are moist. Pharynx: Posterior oropharyngeal erythema (posterior oropharynx wtih erythema. Uvula midline. Handling secretions) present. No oropharyngeal exudate. Eyes: General: Right eye: No discharge. Left eye: No discharge. Extraocular Movements: Extraocular movements intact. Conjunctiva/sclera: Conjunctivae normal. Pupils: Pupils are equal, round, and reactive to light. Cardiovascular: Rate and Rhythm: Normal rate and regular rhythm. Pulses: Normal pulses. Heart sounds: Normal heart sounds. No murmur heard. No friction rub. Pulmonary: Effort: Pulmonary effort is normal. No respiratory distress. Breath sounds: Normal breath sounds. No stridor. No wheezing, rhonchi or rales. Chest: Chest wall: No tenderness. Abdominal: General: Abdomen is flat. There is no distension. Palpations: Abdomen is soft. There is no mass. Tenderness: There is no abdominal tenderness. There is no right CVA tenderness, left CVA tenderness, guarding or rebound. Hernia: No hernia is present. Musculoskeletal: General: No swelling, tenderness, deformity or signs of injury. Normal range of motion. Cervical back: Normal range of motion and neck supple. No rigidity. Right lower leg: No edema. Left lower leg: No edema. Lymphadenopathy: Cervical: No cervical adenopathy. Skin: General: Skin is warm and dry. Coloration: Skin is not jaundiced or pale. Findings: No bruising, erythema, lesion or rash. Neurological: General: No focal deficit present. Mental Status: She is alert and oriented to person, place, and time. Cranial Nerves: No cranial nerve deficit. Sensory: No sensory deficit. Motor: No weakness. Coordination: Coordination normal. Gait: Gait normal. Psychiatric: Mood and Affect: Mood normal. Behavior: Behavior normal. Thought Content: Thought content normal. Judgment: Judgment normal. Assessment and Plan ASSESSMENT/PLAN: 1. Viral illness - ICD9: 079.99, ICD10: B34.9 (primary diagnosis) - Discussed viral etiology and rationale for treatment. - Symptomatic treatment with prn analgesia - Supportive care with fluids and rest - The patient may also use OTC cough and cold meds as needed, warm salt water gargles, throat lozenges and/or OTC throat spray as needed, nasal saline gtts and suction prn. . - Follow up in 3-5 days if symptoms persist or sooner if worsening of symptoms - KETOROLAC 60 MG/2 ML INTRAMUSCULAR SOLUTION-administered here in clinic. - COVID WITH FLUA+B, ROUTINE-obtained 2. Cough - ICD9: 786.2, ICD10: R05.9 X 5 days Lungs CTA Hemodynamically stable She does vape tobacco Sakshi Rebollar APRN.STEELSCOPE OPERATOR documented in this encounter [facility] 05-30-2021 Instructions Sakshi Rebollar APRN.DONTAE - 05/30/2021 1:03 PM EDT Viral illness (primary encounter diagnosis) You have been diagnosed with an illness caused by a virus. Antibiotics do not cure viral infections. If given when not needed, antibiotics can be harmful. The treatments described below will help you feel better while your body's own defenses are fighting the virus. General Instructions: Drink extra water and juice. Use a cool mist vaporizer or saline nasal spray to relieve congestion. For Sore throats, use ice chips or sore throat spray; lozenges for older children and adults. Specific Medications: Fever, aches, ear pain: RESPIRATORY INFECTION GENERAL INFORMATION: An upper respiratory tract infection, or cold, is a viral infection of the airway passages. It can be caused by any one of almost 200 different viruses. Common symptoms include a runny or stuffy nose, sneezing, watery eyes, sore throat, cough, and slight fever. Colds are contagious, especially during the first 3 or 4 days and cannot be cured by antibiotics. They are spread by coughs, sneezes, and direct contact, especially [id number]. A respiratory tract infection usually clears up in a few days, but some people may be sick for a week or two. INSTRUCTIONS: 1. Be careful not to blow your nose too hard because this may cause a nosebleed. 2. Use a cool-mist humidifier (vaporizer) to increase air moisture. This will make it easier for you to breathe. Do not use hot steam. 3. Rest as much as possible and get plenty of sleep. 4. Wash your hands often, especially after you blow your nose. Cover your mouth and nose with a tissue when you sneeze or cough. 5. Drink plenty of clear fluids (8 glasses a day) such as water, fruit juice, tea, clear soups, and carbonated beverages. CONTACT YOUR DOCTOR IF : 1. Your fever lasts more than 3 days. 2. You have a sore throat that gets worse or you see white or yellow spots in your throat. 3. Your cough gets worse or lasts more than 10 days. 4. You develop a rash anywhere on your skin. 5. You have an earache or a headache. 6. You have thick greenish or yellowish discharge from your nose. RETURN IMMEDIATELY IF: 1. You cough up thick yellow, green, wolf, or bloody sputum. 2. You have difficulty breathing, pain in your chest, or your skin or nails look wolf or blue. 3. You have shaking chills or a temperature over 102 F (39 C). Use medicines according to the package instructions or as directed by your healthcare provider. Stop the medication when the symptoms get better. No follow-ups on file. documented in this encounter [facility] 05-29-2021 Miscellaneous Notes Patient states she is feeling about the same. Offered to schedule an appointment for her but she states she will see how she feels today and call back this afternoon. Your care team [facility]ogany Florez Cma Team - Can you call patient and see how she is feeling. If not I would make her an appt with me. Jomar Zacarias APRN.KING DIGGS Patient calling with question for Jomar Zacarias. She reports about one week ago on 05/20 she developed a sore throat and body aches and had a temp of 100.4. Home covid test on 05/23 was negative. She reports on 05/23 she felt better and returned to work. She then states this past Thursday she began to feel super tired , had a dry cough and felt achey again. She states this morning her nose is runny, continues with dry cough, and a scratchy throat but does not hurt. States feels feverish but temp 98.1 today. Reports she was taking tylenol last week. Denies chest pain, shortness of breath, nausea, vomiting or diarrhea. She is asking if should be evaluated further or continue with home care? Please advise her at [phone]. May leave detailed message. Thank you. documented in this encounter [facility] documented as of this encounter (statuses as of 05/29/2021) [facility] History of Past illness Narrative* Problem Noted Date Resolved Date Uterine size-date discrepancy 09/22/2016 History of depression 02/21/2016 02/26/2016 Overview: 02/21/2016Pt has a history of depression and anxiety that was treated at [facility] at age 17. She was admitted to [facility] for 3 days at age 17 for suicidal thoughts. Her brother last week from suicide. He is to be buried in two days. Pt does note some depression and anxiety, but denies any suicidal thoughts or tendencies or thoughts of hurting others. Discussed increased risks of depression during and and importance of reporting the development or worsening of symptoms should they occur. Appt made with [facility] for 09/18/2006. Pt smokes 1-1 1/2 packs a day of cigarettes. Discussed risks of smoking during . Advised pt to quit. Pt admits to using marijuana as recently as 1-2 months ago. She denies any use since then. Discussed risks of using drugs during . Hx of major depression 02/21/2016 8 Overview: 02/26/16 - patient states she has her ways of coping as has dealt with a lot in her life (see below), declines counseling or other intervention - KJ 02/20/2015Pt has a history of depression and anxiety that was treated at [facility] at age 17. She was admitted to [facility] for 3 days at age 17 for suicidal thoughts. Her brother in 2006 from suicide.Patient was last when he by suicide. She states she is having anxiety with this because some of these feelings/amotions are resurfacing. Patient has been off medication for anxiety and depression since October. She does not want to go back on medication because it makes me feel worse. She states that she occasionally has suicidal thoughts but she said she would never carry them out. She denies ever having a plan. She states she last had suicidal thoughts a few weeks ago. Patient has had counseling in the past and will call her counselor and schedule an appointment. She declines me doing this for her today.I also gave her the name of [facility], who works a lot with suicide survivors. Discussed increased risks of depression during and and importance of reporting the development or worsening of symptoms should they occur. TKRN Maternal tobacco use in first trimester 02/20/19 17 04/21/2017 Overview: 02/21/2016Pt smokes 6-7 cigarettes a day, down from 1 ppd. Discussed risks of smoking during . Advised pt to quit. TKRN History of congenital heart defect 02/21/2016 04/21/2017 Overview: 02/21/2016Patient states she was born with a hole in her heart. No surgical intervention. TKRN Patient requested diagnostic testing 02/21/2016 04/21/2017 Overview: 02/21/2016Patient desires nuchal ultrasound and CF carrier screening testing. TKRN Adjustment disorder with depressed mood 03/01/19 09 04/21/2017 Unspecified high-risk 09/21/2006 09/03/2011 documented as of this encounter (statuses as of 05/30/2021) [facility] History of Past illness Narrative* Problem Noted Date Resolved Date Uterine size-date discrepancy 09/22/2016 History of depression 02/21/2016 02/26/2016 Overview: 02/21/2016Pt has a history of depression and anxiety that was treated at [facility] at age 17. She was admitted to [facility] for 3 days at age 17 for suicidal thoughts. Her brother last week from suicide. He is to be buried in two days. Pt does note some depression and anxiety, but denies any suicidal thoughts or tendencies or thoughts of hurting others. Discussed increased risks of depression during and and importance of reporting the development or worsening of symptoms should they occur. Appt made with [facility] for 09/18/2006. Pt smokes 1-1 1/2 packs a day of cigarettes. Discussed risks of smoking during . Advised pt to quit. Pt admits to using marijuana as recently as 1-2 months ago. She denies any use since then. Discussed risks of using drugs during . Hx of major depression 02/21/2016 8 Overview: 02/26/16 - patient states she has her ways of coping as has dealt with a lot in her life (see below), declines counseling or other intervention - KJ 02/20/2015Pt has a history of depression and anxiety that was treated at [facility] at age 17. She was admitted to [facility] for 3 days at age 17 for suicidal thoughts. Her brother in 2006 from suicide.Patient was last when he by suicide. She states she is having anxiety with this because some of these feelings/amotions are resurfacing. Patient has been off medication for anxiety and depression since October. She does not want to go back on medication because it makes me feel worse. She states that she occasionally has suicidal thoughts but she said she would never carry them out. She denies ever having a plan. She states she last had suicidal thoughts a few weeks ago. Patient has had counseling in the past and will call her counselor and schedule an appointment. She declines me doing this for her today.I also gave her the name of Evelyn Méndez at [facility], who works a lot with suicide survivors. Discussed increased risks of depression during and and importance of reporting the development or worsening of symptoms should they occur. TKRN Maternal tobacco use in first trimester 02/20/19 17 04/21/2017 Overview: 02/21/2016Pt smokes 6-7 cigarettes a day, down from 1 ppd. Discussed risks of smoking during . Advised pt to quit. TKRN History of congenital heart defect 02/21/2016 04/21/2017 Overview: 02/21/2016Patient states she was born with a hole in her heart. No surgical intervention. TKRN Patient requested diagnostic testing 02/21/2016 04/21/2017 Overview: 02/21/2016Patient desires nuchal ultrasound and CF carrier screening testing. TKRN Adjustment disorder with depressed mood 03/01/19 09 04/21/2017 Unspecified high-risk 09/21/2006 09/03/2011 documented as of this encounter (statuses as of 06/12/2021) [facility]08-14-2017 History of Past illness Narrative* Problem Noted Date Resolved Date Uterine size-date discrepancy 09/22/2016 History of depression 02/21/2016 02/26/2016 Overview: 02/21/2016Pt has a history of depression and anxiety that was treated at [facility] at age 17. She was admitted to [facility] for 3 days at age 17 for suicidal thoughts. Her brother last week from suicide. He is to be buried in two days. Pt does note some depression and anxiety, but denies any suicidal thoughts or tendencies or thoughts of hurting others. Discussed increased risks of depression during and and importance of reporting the development or worsening of symptoms should they occur. Appt made with [facility] for 09/18/2006. Pt smokes 1-1 1/2 packs a day of cigarettes. Discussed risks of smoking during . Advised pt to quit. Pt admits to using marijuana as recently as 1-2 months ago. She denies any use since then. Discussed risks of using drugs during . Hx of major depression 02/21/2016 8 Overview: 02/26/16 - patient states she has her ways of coping as has dealt with a lot in her life (see below), declines counseling or other intervention - KJ 02/20/2015Pt has a history of depression and anxiety that was treated at [facility] at age 17. She was admitted to [facility] for 3 days at age 17 for suicidal thoughts. Her brother in 2006 from suicide.Patient was last when he by suicide. She states she is having anxiety with this because some of these feelings/amotions are resurfacing. Patient has been off medication for anxiety and depression since October. She does not want to go back on medication because it makes me feel worse. She states that she occasionally has suicidal thoughts but she said she would never carry them out. She denies ever having a plan. She states she last had suicidal thoughts a few weeks ago. Patient has had counseling in the past and will call her counselor and schedule an appointment. She declines me doing this for her today.I also gave her the name of Evelyn Méndez at [facility], who works a lot with suicide survivors. Discussed increased risks of depression during and and importance of reporting the development or worsening of symptoms should they occur. TKRN Maternal tobacco use in first trimester 02/20/1904/21/2017 Overview: 02/21/2016Pt smokes 6-7 cigarettes a day, down from 1 ppd. Discussed risks of smoking during . Advised pt to quit. TKRN History of congenital heart defect 02/21/2016 04/21/2017 Overview: 02/21/2016Patient states she was born with a hole in her heart. No surgical intervention. TKRN Patient requested diagnostic testing 02/21/2016 04/21/2017 Overview: 02/21/2016Patient desires nuchal ultrasound and CF carrier screening testing. TKRN Adjustment disorder with depressed mood 03/01/19 09 04/21/2017 Unspecified high-risk 09/21/2006 09/03/2011 documented as of this encounter (statuses as of 06/25/2021) [facility]08-[facility]2017 History of Past illness Narrative* Problem Noted Date Resolved Date Uterine size-date discrepancy 09/22/2016 History of depression 02/21/2016 02/26/2016 Overview: 02/21/2016Pt has a history of depression and anxiety that was treated at [facility] at age 17. She was admitted to [facility] for 3 days at age 17 for suicidal thoughts. Her brother last week from suicide. He is to be buried in two days. Pt does note some depression and anxiety, but denies any suicidal thoughts or tendencies or thoughts of hurting others. Discussed increased risks of depression during and and importance of reporting the development or worsening of symptoms should they occur. Appt made with [facility] for 09/18/2006. Pt smokes 1-1 1/2 packs a day of cigarettes. Discussed risks of smoking during . Advised pt to quit. Pt admits to using marijuana as recently as 1-2 months ago. She denies any use since then. Discussed risks of using drugs during . Hx of major depression 02/21/2016 8 Overview: 02/26/16 - patient states she has her ways of coping as has dealt with a lot in her life (see below), declines counseling or other intervention - KJ 02/20/2015Pt has a history of depression and anxiety that was treated at [facility] at age 17. She was admitted to [facility] for 3 days at age 17 for suicidal thoughts. Her brother in 2006 from suicide.Patient was last when he by suicide. She states she is having anxiety with this because some of these feelings/amotions are resurfacing. Patient has been off medication for anxiety and depression since October. She does not want to go back on medication because it makes me feel worse. She states that she occasionally has suicidal thoughts but she said she would never carry them out. She denies ever having a plan. She states she last had suicidal thoughts a few weeks ago. Patient has had counseling in the past and will call her counselor and schedule an appointment. She declines me doing this for her today.I also gave her the name of Evelyn Méndez at [facility], who works a lot with suicide survivors. Discussed increased risks of depression during and and importance of reporting the development or worsening of symptoms should they occur. TKRN Maternal tobacco use in first trimester 02/20/19 17 04/21/2017 Overview: 02/21/2016Pt smokes 6-7 cigarettes a day, down from 1 ppd. Discussed risks of smoking during . Advised pt to quit. TKRN History of congenital heart defect 02/21/2016 04/21/2017 Overview: 02/21/2016Patient states she was born with a hole in her heart. No surgical intervention. TKRN Patient requested diagnostic testing 02/21/2016 04/21/2017 Overview: 02/21/2016Patient desires nuchal ultrasound and CF carrier screening testing. TKRN Adjustment disorder with depressed mood 03/01/19 09 04/21/2017 Unspecified high-risk 09/21/2006 09/03/2011 documented as of this encounter (statuses as of 10/17/2021) [facility]08-[facility]2017 History of Past illness Narrative* Problem Noted Date Resolved Date Uterine size-date discrepancy 09/22/2016 History of depression 02/21/2016 02/26/2016 Overview: 02/21/2016Pt has a history of depression and anxiety that was treated at [facility] at age 17. She was admitted to [facility] for 3 days at age 17 for suicidal thoughts. Her brother last week from suicide. He is to be buried in two days. Pt does note some depression and anxiety, but denies any suicidal thoughts or tendencies or thoughts of hurting others. Discussed increased risks of depression during and and importance of reporting the development or worsening of symptoms should they occur. Appt made with [facility] for 09/18/2006. Pt smokes 1-1 1/2 packs a day of cigarettes. Discussed risks of smoking during . Advised pt to quit. Pt admits to using marijuana as recently as 1-2 months ago. She denies any use since then. Discussed risks of using drugs during . Hx of major depression 02/21/2016 8 Overview: 02/26/16 - patient states she has her ways of coping as has dealt with a lot in her life (see below), declines counseling or other intervention - KJ 02/20/2015Pt has a history of depression and anxiety that was treated at [facility] at age 17. She was admitted to [facility] for 3 days at age 17 for suicidal thoughts. Her brother in 2006 from suicide.Patient was last when he by suicide. She states she is having anxiety with this because some of these feelings/amotions are resurfacing. Patient has been off medication for anxiety and depression since October. She does not want to go back on medication because it makes me feel worse. She states that she occasionally has suicidal thoughts but she said she would never carry them out. She denies ever having a plan. She states she last had suicidal thoughts a few weeks ago. Patient has had counseling in the past and will call her counselor and schedule an appointment. She declines me doing this for her today.I also gave her the name of Evelyn Méndez at [facility], who works a lot with suicide survivors. Discussed increased risks of depression during and and importance of reporting the development or worsening of symptoms should they occur. TKRN Maternal tobacco use in first trimester 02/20/19 17 04/21/2017 Overview: 02/21/2016Pt smokes 6-7 cigarettes a day, down from 1 ppd. Discussed risks of smoking during . Advised pt to quit. TKRN History of congenital heart defect 02/21/2016 04/21/2017 Overview: 02/21/2016Patient states she was born with a hole in her heart. No surgical intervention. TKRN Patient requested diagnostic testing 02/21/2016 04/21/2017 Overview: 02/21/2016Patient desires nuchal ultrasound and CF carrier screening testing. TKRN Adjustment disorder with depressed mood 03/01/19 09 04/21/2017 Unspecified high-risk 09/21/2006 09/03/2011 documented as of this encounter (statuses as of 12/05/2021) [facility]08-[facility] History of Past illness Narrative* Problem Noted Date Resolved Date Uterine size-date discrepancy 09/22/2016 History of depression 02/21/2016 02/26/2016 Overview: 02/21/2016Pt has a history of depression and anxiety that was treated at [facility] at age 17. She was admitted to [facility] for 3 days at age 17 for suicidal thoughts. Her brother last week from suicide. He is to be buried in two days. Pt does note some depression and anxiety, but denies any suicidal thoughts or tendencies or thoughts of hurting others. Discussed increased risks of depression during and and importance of reporting the development or worsening of symptoms should they occur. Appt made with [facility] for 09/18/2006. Pt smokes 1-1 1/2 packs a day of cigarettes. Discussed risks of smoking during . Advised pt to quit. Pt admits to using marijuana as recently as 1-2 months ago. She denies any use since then. Discussed risks of using drugs during . Hx of major depression 02/21/2016 8 Overview: 02/26/16 - patient states she has her ways of coping as has dealt with a lot in her life (see below), declines counseling or other intervention - KJ 02/20/2015Pt has a history of depression and anxiety that was treated at [facility] at age 17. She was admitted to [facility] for 3 days at age 17 for suicidal thoughts. Her brother in 2006 from suicide.Patient was last when he by suicide. She states she is having anxiety with this because some of these feelings/amotions are resurfacing. Patient has been off medication for anxiety and depression since October. She does not want to go back on medication because it makes me feel worse. She states that she occasionally has suicidal thoughts but she said she would never carry them out. She denies ever having a plan. She states she last had suicidal thoughts a few weeks ago. Patient has had counseling in the past and will call her counselor and schedule an appointment. She declines me doing this for her today.I also gave her the name of Evelyn Méndez at [facility], who works a lot with suicide survivors. Discussed increased risks of depression during and and importance of reporting the development or worsening of symptoms should they occur. TKRN Maternal tobacco use in first trimester 02/20/19 17 04/21/2017 Overview: 02/21/2016Pt smokes 6-7 cigarettes a day, down from 1 ppd. Discussed risks of smoking during . Advised pt to quit. TKRN History of congenital heart defect 02/21/2016 04/21/2017 Overview: 02/21/2016Patient states she was born with a hole in her heart. No surgical intervention. TKRN Patient requested diagnostic testing 02/21/2016 04/21/2017 Overview: 02/21/2016Patient desires nuchal ultrasound and CF carrier screening testing. TKRN Adjustment disorder with depressed mood 03/01/19 09 04/21/2017 Unspecified high-risk 09/21/2006 09/03/2011 documented as of this encounter (statuses as of 02/14/2022) [facility] History of Past illness Narrative* Problem Noted Date Resolved Date Uterine size-date discrepancy 09/22/2016 History of depression 02/21/2016 02/26/2016 Overview: 02/21/2016Pt has a history of depression and anxiety that was treated at [facility] at age 17. She was admitted to [facility] for 3 days at age 17 for suicidal thoughts. Her brother last week from suicide. He is to be buried in two days. Pt does note some depression and anxiety, but denies any suicidal thoughts or tendencies or thoughts of hurting others. Discussed increased risks of depression during and and importance of reporting the development or worsening of symptoms should they occur. Appt made with [facility] for 09/18/2006. Pt smokes 1-1 1/2 packs a day of cigarettes. Discussed risks of smoking during . Advised pt to quit. Pt admits to using marijuana as recently as 1-2 months ago. She denies any use since then. Discussed risks of using drugs during . Hx of major depression 02/21/2016 8 Overview: 02/26/16 - patient states she has her ways of coping as has dealt with a lot in her life (see below), declines counseling or other intervention - KJ 02/20/2015Pt has a history of depression and anxiety that was treated at [facility] at age 17. She was admitted to [facility] for 3 days at age 17 for suicidal thoughts. Her brother in 2006 from suicide.Patient was last when he by suicide. She states she is having anxiety with this because some of these feelings/amotions are resurfacing. Patient has been off medication for anxiety and depression since October. She does not want to go back on medication because it makes me feel worse. She states that she occasionally has suicidal thoughts but she said she would never carry them out. She denies ever having a plan. She states she last had suicidal thoughts a few weeks ago. Patient has had counseling in the past and will call her counselor and schedule an appointment. She declines me doing this for her today.I also gave her the name of Evelyn Méndez at [facility], who works a lot with suicide survivors. Discussed increased risks of depression during and and importance of reporting the development or worsening of symptoms should they occur. TKRN Maternal tobacco use in first trimester 02/20/19 17 04/21/2017 Overview: 02/21/2016Pt smokes 6-7 cigarettes a day, down from 1 ppd. Discussed risks of smoking during . Advised pt to quit. TKRN History of congenital heart defect 02/21/2016 04/21/2017 Overview: 02/21/2016Patient states she was born with a hole in her heart. No surgical intervention. TKRN Patient requested diagnostic testing 02/21/2016 04/21/2017 Overview: 02/21/2016Patient desires nuchal ultrasound and CF carrier screening testing. TKRN Adjustment disorder with depressed mood 03/01/19 09 04/21/2017 Unspecified high-risk 09/21/2006 09/03/2011 documented as of this encounter (statuses as of 02/24/2022) [facility] History of Past illness Narrative* Problem Noted Date Resolved Date Uterine size-date discrepancy 09/22/2016 History of depression 02/21/2016 02/26/2016 Overview: 02/21/2016Pt has a history of depression and anxiety that was treated at [facility] at age 17. She was admitted to [facility] for 3 days at age 17 for suicidal thoughts. Her brother last week from suicide. He is to be buried in two days. Pt does note some depression and anxiety, but denies any suicidal thoughts or tendencies or thoughts of hurting others. Discussed increased risks of depression during and and importance of reporting the development or worsening of symptoms should they occur. Appt made with [facility] for 09/18/2006. Pt smokes 1-1 1/2 packs a day of cigarettes. Discussed risks of smoking during . Advised pt to quit. Pt admits to using marijuana as recently as 1-2 months ago. She denies any use since then. Discussed risks of using drugs during . Hx of major depression 02/21/2016 8 Overview: 02/26/16 - patient states she has her ways of coping as has dealt with a lot in her life (see below), declines counseling or other intervention - KJ 02/20/2015Pt has a history of depression and anxiety that was treated at [facility] at age 17. She was admitted to [facility] for 3 days at age 17 for suicidal thoughts. Her brother in 2006 from suicide.Patient was last when he by suicide. She states she is having anxiety with this because some of these feelings/amotions are resurfacing. Patient has been off medication for anxiety and depression since October. She does not want to go back on medication because it makes me feel worse. She states that she occasionally has suicidal thoughts but she said she would never carry them out. She denies ever having a plan. She states she last had suicidal thoughts a few weeks ago. Patient has had counseling in the past and will call her counselor and schedule an appointment. She declines me doing this for her today.I also gave her the name of Evelyn Méndez at [facility], who works a lot with suicide survivors. Discussed increased risks of depression during and and importance of reporting the development or worsening of symptoms should they occur. TKRN Maternal tobacco use in first trimester 02/20/19 17 04/21/2017 Overview: 02/21/2016Pt smokes 6-7 cigarettes a day, down from 1 ppd. Discussed risks of smoking during . Advised pt to quit. TKRN History of congenital heart defect 02/21/2016 04/21/2017 Overview: 02/21/2016Patient states she was born with a hole in her heart. No surgical intervention. TKRN Patient requested diagnostic testing 02/21/2016 04/21/2017 Overview: 02/21/2016Patient desires nuchal ultrasound and CF carrier screening testing. TKRN Adjustment disorder with depressed mood 03/01/19 09 04/21/2017 Unspecified high-risk 09/21/2006 09/03/2011 documented as of this encounter (statuses as of 03/03/2022) [facility] History of Past illness Narrative* Problem Noted Date Resolved Date Uterine size-date discrepancy 09/22/2016 History of depression 02/21/2016 02/26/2016 Overview: 02/21/2016Pt has a history of depression and anxiety that was treated at [facility] at age 17. She was admitted to [facility] for 3 days at age 17 for suicidal thoughts. Her brother last week from suicide. He is to be buried in two days. Pt does note some depression and anxiety, but denies any suicidal thoughts or tendencies or thoughts of hurting others. Discussed increased risks of depression during and and importance of reporting the development or worsening of symptoms should they occur. Appt made with [facility] for 09/18/2006. Pt smokes 1-1 1/2 packs a day of cigarettes. Discussed risks of smoking during . Advised pt to quit. Pt admits to using marijuana as recently as 1-2 months ago. She denies any use since then. Discussed risks of using drugs during . Hx of major depression 02/21/2016 8 Overview: 02/26/16 - patient states she has her ways of coping as has dealt with a lot in her life (see below), declines counseling or other intervention - ATIF 02/20/2015Pt has a history of depression and anxiety that was treated at [facility] at age 17. She was admitted to [facility] for 3 days at age 17 for suicidal thoughts. Her brother in 2006 from suicide.Patient was last when he by suicide. She states she is having anxiety with this because some of these feelings/amotions are resurfacing. Patient has been off medication for anxiety and depression since October. She does not want to go back on medication because it makes me feel worse. She states that she occasionally has suicidal thoughts but she said she would never carry them out. She denies ever having a plan. She states she last had suicidal thoughts a few weeks ago. Patient has had counseling in the past and will call her counselor and schedule an appointment. She declines me doing this for her today.I also gave her the name of Evelyn Méndez at [facility], who works a lot with suicide survivors. Discussed increased risks of depression during and and importance of reporting the development or worsening of symptoms should they occur. TKRN Maternal tobacco use in first trimester 02/20/1904/21/2017 Overview: 02/21/2016Pt smokes 6-7 cigarettes a day, down from 1 ppd. Discussed risks of smoking during . Advised pt to quit. TKRN History of congenital heart defect 02/21/2016 04/21/2017 Overview: 02/21/2016Patient states she was born with a hole in her heart. No surgical intervention. TKRN Patient requested diagnostic testing 02/21/2016 04/21/2017 Overview: 02/21/2016Patient desires nuchal ultrasound and CF carrier screening testing. TKRN Adjustment disorder with depressed mood 03/01/19 09 04/21/2017 Unspecified high-risk 09/21/2006 09/03/2011 documented as of this encounter (statuses as of 03/03/2022) [facility] History of Past illness Narrative* Problem Noted Date Resolved Date Uterine size-date discrepancy 09/22/2016 History of depression 02/21/2016 02/26/2016 Overview: 02/21/2016Pt has a history of depression and anxiety that was treated at [facility] at age 17. She was admitted to [facility] for 3 days at age 17 for suicidal thoughts. Her brother last week from suicide. He is to be buried in two days. Pt does note some depression and anxiety, but denies any suicidal thoughts or tendencies or thoughts of hurting others. Discussed increased risks of depression during and and importance of reporting the development or worsening of symptoms should they occur. Appt made with [facility] for 09/18/2006. Pt smokes 1-1 1/2 packs a day of cigarettes. Discussed risks of smoking during . Advised pt to quit. Pt admits to using marijuana as recently as 1-2 months ago. She denies any use since then. Discussed risks of using drugs during . Hx of major depression 02/21/2016 8 Overview: 02/26/16 - patient states she has her ways of coping as has dealt with a lot in her life (see below), declines counseling or other intervention - KJ 02/20/2015Pt has a history of depression and anxiety that was treated at [facility] at age 17. She was admitted to [facility] for 3 days at age 17 for suicidal thoughts. Her brother in 2006 from suicide.Patient was last when he by suicide. She states she is having anxiety with this because some of these feelings/amotions are resurfacing. Patient has been off medication for anxiety and depression since October. She does not want to go back on medication because it makes me feel worse. She states that she occasionally has suicidal thoughts but she said she would never carry them out. She denies ever having a plan. She states she last had suicidal thoughts a few weeks ago. Patient has had counseling in the past and will call her counselor and schedule an appointment. She declines me doing this for her today.I also gave her the name of Evelyn Méndez at [facility], who works a lot with suicide survivors. Discussed increased risks of depression during and and importance of reporting the development or worsening of symptoms should they occur. TKRN Maternal tobacco use in first trimester 02/20/19 17 04/21/2017 Overview: 02/21/2016Pt smokes 6-7 cigarettes a day, down from 1 ppd. Discussed risks of smoking during . Advised pt to quit. TKRN History of congenital heart defect 02/21/2016 04/21/2017 Overview: 02/21/2016Patient states she was born with a hole in her heart. No surgical intervention. TKRN Patient requested diagnostic testing 02/21/2016 04/21/2017 Overview: 02/21/2016Patient desires nuchal ultrasound and CF carrier screening testing. TKRN Adjustment disorder with depressed mood 03/01/19 09 04/21/2017 Unspecified high-risk 09/21/2006 09/03/2011 documented as of this encounter (statuses as of 03/14/2022) [facility]08-14-2017 History of Past illness Narrative* Problem Noted Date Resolved Date Uterine size-date discrepancy 09/22/2016 History of depression 02/21/2016 02/26/2016 Overview: 02/21/2016Pt has a history of depression and anxiety that was treated at [facility] at age 17. She was admitted to [facility] for 3 days at age 17 for suicidal thoughts. Her brother last week from suicide. He is to be buried in two days. Pt does note some depression and anxiety, but denies any suicidal thoughts or tendencies or thoughts of hurting others. Discussed increased risks of depression during and and importance of reporting the development or worsening of symptoms should they occur. Appt made with [facility] for 09/18/2006. Pt smokes 1-1 1/2 packs a day of cigarettes. Discussed risks of smoking during . Advised pt to quit. Pt admits to using marijuana as recently as 1-2 months ago. She denies any use since then. Discussed risks of using drugs during . Hx of major depression 02/21/2016 8 Overview: 02/26/16 - patient states she has her ways of coping as has dealt with a lot in her life (see below), declines counseling or other intervention - ATIF 02/20/2015Pt has a history of depression and anxiety that was treated at [facility] at age 17. She was admitted to [facility] for 3 days at age 17 for suicidal thoughts. Her brother in 2006 from suicide.Patient was last when he by suicide. She states she is having anxiety with this because some of these feelings/amotions are resurfacing. Patient has been off medication for anxiety and depression since October. She does not want to go back on medication because it makes me feel worse. She states that she occasionally has suicidal thoughts but she said she would never carry them out. She denies ever having a plan. She states she last had suicidal thoughts a few weeks ago. Patient has had counseling in the past and will call her counselor and schedule an appointment. She declines me doing this for her today.I also gave her the name of Evelyn Méndez at [facility], who works a lot with suicide survivors. Discussed increased risks of depression during and and importance of reporting the development or worsening of symptoms should they occur. TKRN Maternal tobacco use in first trimester 02/20/19 17 04/21/2017 Overview: 02/21/2016Pt smokes 6-7 cigarettes a day, down from 1 ppd. Discussed risks of smoking during . Advised pt to quit. TKRN History of congenital heart defect 02/21/2016 04/21/2017 Overview: 02/21/2016Patient states she was born with a hole in her heart. No surgical intervention. TKRN Patient requested diagnostic testing 02/21/2016 04/21/2017 Overview: 02/21/2016Patient desires nuchal ultrasound and CF carrier screening testing. TKRN Adjustment disorder with depressed mood 03/01/19 09 04/21/2017 Unspecified high-risk 09/21/2006 09/03/2011 documented as of this encounter (statuses as of 04/04/2022) [facility]08-14-2017 History of Past illness Narrative* Problem Noted Date Resolved Date Uterine size-date discrepancy 09/22/2016 History of depression 02/21/2016 02/26/2016 Overview: 02/21/2016Pt has a history of depression and anxiety that was treated at [facility] at age 17. She was admitted to [facility] for 3 days at age 17 for suicidal thoughts. Her brother last week from suicide. He is to be buried in two days. Pt does note some depression and anxiety, but denies any suicidal thoughts or tendencies or thoughts of hurting others. Discussed increased risks of depression during and and importance of reporting the development or worsening of symptoms should they occur. Appt made with [facility] for 09/18/2006. Pt smokes 1-1 1/2 packs a day of cigarettes. Discussed risks of smoking during . Advised pt to quit. Pt admits to using marijuana as recently as 1-2 months ago. She denies any use since then. Discussed risks of using drugs during . Hx of major depression 02/21/2016 8 Overview: 02/26/16 - patient states she has her ways of coping as has dealt with a lot in her life (see below), declines counseling or other intervention - KJ 02/20/2015Pt has a history of depression and anxiety that was treated at [facility] at age 17. She was admitted to [facility] for 3 days at age 17 for suicidal thoughts. Her brother in 2006 from suicide.Patient was last when he by suicide. She states she is having anxiety with this because some of these feelings/amotions are resurfacing. Patient has been off medication for anxiety and depression since October. She does not want to go back on medication because it makes me feel worse. She states that she occasionally has suicidal thoughts but she said she would never carry them out. She denies ever having a plan. She states she last had suicidal thoughts a few weeks ago. Patient has had counseling in the past and will call her counselor and schedule an appointment. She declines me doing this for her today.I also gave her the name of Evelyn Méndez at [facility], who works a lot with suicide survivors. Discussed increased risks of depression during and and importance of reporting the development or worsening of symptoms should they occur. TKRN Maternal tobacco use in first trimester 02/20/19 17 04/21/2017 Overview: 02/21/2016Pt smokes 6-7 cigarettes a day, down from 1 ppd. Discussed risks of smoking during . Advised pt to quit. TKRN History of congenital heart defect 02/21/2016 04/21/2017 Overview: 02/21/2016Patient states she was born with a hole in her heart. No surgical intervention. TKRN Patient requested diagnostic testing 02/21/2016 04/21/2017 Overview: 02/21/2016Patient desires nuchal ultrasound and CF carrier screening testing. TKRN Adjustment disorder with depressed mood 03/01/19 09 04/21/2017 Unspecified high-risk 09/21/2006 09/03/2011 documented as of this encounter (statuses as of 07/25/2022) [facility]08-[facility]2017 History of Past illness Narrative* Problem Noted Date Diagnosed Date Resolved Date Uterine size-date discrepancy 09/22/2016 04/21/2017 History of depression 02/21/20162016 Overview: 02/21/2016Pt has a history of depression and anxiety that was treated at [facility] at age 17. She was admitted to [facility] for 3 days at age 17 for suicidal thoughts. Her brother last week from suicide. He is to be buried in two days. Pt does note some depression and anxiety, but denies any suicidal thoughts or tendencies or thoughts of hurting others. Discussed increased risks of depression during and and importance of reporting the development or worsening of symptoms should they occur. Appt made with [facility] for 09/18/2006. Pt smokes 1-1 1/2 packs a day of cigarettes. Discussed risks of smoking during . Advised pt to quit. Pt admits to using marijuana as recently as 1-2 months ago. She denies any use since then. Discussed risks of using drugs during . Hx of major depression 02/21/201604/21 Overview: 02/26/16 - patient states she has her ways of coping as has dealt with a lot in her life (see below), declines counseling or other intervention - ATIF 02/20/2015Pt has a history of depression and anxiety that was treated at [facility] at age 17. She was admitted to [facility] for 3 days at age 17 for suicidal thoughts. Her brother in 2006 from suicide.Patient was last when he by suicide. She states she is having anxiety with this because some of these feelings/amotions are resurfacing. Patient has been off medication for anxiety and depression since October. She does not want to go back on medication because it makes me feel worse. She states that she occasionally has suicidal thoughts but she said she would never carry them out. She denies ever having a plan. She states she last had suicidal thoughts a few weeks ago. Patient has had counseling in the past and will call her counselor and schedule an appointment. She declines me doing this for her today.I also gave her the name of Evelyn Méndez at [facility], who works a lot with suicide survivors. Discussed increased risks of depression during and and importance of reporting the development or worsening of symptoms should they occur. TKRN Maternal tobacco use in first trimester 02/21/2016 04/21/2017 Overview: 02/21/2016Pt smokes 6-7 cigarettes a day, down from 1 ppd. Discussed risks of smoking during . Advised pt to quit. TKRN History of congenital heart defect 02/21/2016 04/21/2017 Overview: 02/21/2016Patient states she was born with a hole in her heart. No surgical intervention. TKRN Patient requested diagnostic testing 02/21/2016 04/21/2017 Overview: 02/21/2016Patient desires nuchal ultrasound and CF carrier screening testing. TKRN Adjustment disorder with depressed mood 03/01/2008 04/21/2017 Unspecified high-risk 09/21/2006 09/03/2011 documented as of this encounter (statuses as of 09/09/2022) [facility]08-[facility]2017 History of Past illness Narrative* Problem Noted Date Diagnosed Date Resolved Date Uterine size-date discrepancy 09/22/2016 04/21/2017 History of depression 02/21/20162016 Overview: 02/21/2016Pt has a history of depression and anxiety that was treated at [facility] at age 17. She was admitted to [facility] for 3 days at age 17 for suicidal thoughts. Her brother last week from suicide. He is to be buried in two days. Pt does note some depression and anxiety, but denies any suicidal thoughts or tendencies or thoughts of hurting others. Discussed increased risks of depression during and and importance of reporting the development or worsening of symptoms should they occur. Appt made with [facility] for 09/18/2006. Pt smokes 1-1 1/2 packs a day of cigarettes. Discussed risks of smoking during . Advised pt to quit. Pt admits to using marijuana as recently as 1-2 months ago. She denies any use since then. Discussed risks of using drugs during . Hx of major depression 02/21/201604/21 Overview: 02/26/16 - patient states she has her ways of coping as has dealt with a lot in her life (see below), declines counseling or other intervention - KJ 02/20/2015Pt has a history of depression and anxiety that was treated at [facility] at age 17. She was admitted to [facility] for 3 days at age 17 for suicidal thoughts. Her brother in 2006 from suicide.Patient was last when he by suicide. She states she is having anxiety with this because some of these feelings/amotions are resurfacing. Patient has been off medication for anxiety and depression since October. She does not want to go back on medication because it makes me feel worse. She states that she occasionally has suicidal thoughts but she said she would never carry them out. She denies ever having a plan. She states she last had suicidal thoughts a few weeks ago. Patient has had counseling in the past and will call her counselor and schedule an appointment. She declines me doing this for her today.I also gave her the name of Evelyn Méndez at [facility], who works a lot with suicide survivors. Discussed increased risks of depression during and and importance of reporting the development or worsening of symptoms should they occur. TKRN Maternal tobacco use in first trimester 02/21/2016 04/21/2017 Overview: 02/21/2016Pt smokes 6-7 cigarettes a day, down from 1 ppd. Discussed risks of smoking during . Advised pt to quit. TKRN History of congenital heart defect 02/21/2016 04/21/2017 Overview: 02/21/2016Patient states she was born with a hole in her heart. No surgical intervention. TKRN Patient requested diagnostic testing 02/21/2016 04/21/2017 Overview: 02/21/2016Patient desires nuchal ultrasound and CF carrier screening testing. TKRN Adjustment disorder with depressed mood 03/01/2008 04/21/2017 Unspecified high-risk 09/21/2006 09/03/2011 documented as of this encounter (statuses as of 12/19/2022) [facility] History of Past illness Narrative* Problem Noted Date Diagnosed Date Resolved Date Uterine size-date discrepancy 09/22/2016 04/21/2017 History of depression 02/21/20162016 Overview: 02/21/2016Pt has a history of depression and anxiety that was treated at [facility] at age 17. She was admitted to [facility] for 3 days at age 17 for suicidal thoughts. Her brother last week from suicide. He is to be buried in two days. Pt does note some depression and anxiety, but denies any suicidal thoughts or tendencies or thoughts of hurting others. Discussed increased risks of depression during and and importance of reporting the development or worsening of symptoms should they occur. Appt made with [facility] for 09/18/2006. Pt smokes 1-1 1/2 packs a day of cigarettes. Discussed risks of smoking during . Advised pt to quit. Pt admits to using marijuana as recently as 1-2 months ago. She denies any use since then. Discussed risks of using drugs during . Hx of major depression 02/21/201604/21 Overview: 02/26/16 - patient states she has her ways of coping as has dealt with a lot in her life (see below), declines counseling or other intervention - ATIF 02/20/2015Pt has a history of depression and anxiety that was treated at [facility] at age 17. She was admitted to [facility] for 3 days at age 17 for suicidal thoughts. Her brother in 2006 from suicide.Patient was last when he by suicide. She states she is having anxiety with this because some of these feelings/amotions are resurfacing. Patient has been off medication for anxiety and depression since October. She does not want to go back on medication because it makes me feel worse. She states that she occasionally has suicidal thoughts but she said she would never carry them out. She denies ever having a plan. She states she last had suicidal thoughts a few weeks ago. Patient has had counseling in the past and will call her counselor and schedule an appointment. She declines me doing this for her today.I also gave her the name of Evelyn Méndez at [facility], who works a lot with suicide survivors. Discussed increased risks of depression during and and importance of reporting the development or worsening of symptoms should they occur. TKRN Maternal tobacco use in first trimester 02/21/2016 04/21/2017 Overview: 02/21/2016Pt smokes 6-7 cigarettes a day, down from 1 ppd. Discussed risks of smoking during . Advised pt to quit. TKRN History of congenital heart defect 02/21/2016 04/21/2017 Overview: 02/21/2016Patient states she was born with a hole in her heart. No surgical intervention. TKRN Patient requested diagnostic testing 02/21/2016 04/21/2017 Overview: 02/21/2016Patient desires nuchal ultrasound and CF carrier screening testing. TKRN Adjustment disorder with depressed mood 03/01/2008 04/21/2017 Alcohol abuse, unspecified 03/01/2008 1 03/16/2022 Unspecified high-risk 09/21/2006 09/03/2011 documented as of this encounter (statuses as of 01/13/2023) [facility] History of Past illness Narrative* Problem Noted Date Diagnosed Date Resolved Date Uterine size-date discrepancy 09/22/2016 04/21/2017 History of depression 02/21/20162016 Overview: 02/21/2016Pt has a history of depression and anxiety that was treated at [facility] at age 17. She was admitted to [facility] for 3 days at age 17 for suicidal thoughts. Her brother last week from suicide. He is to be buried in two days. Pt does note some depression and anxiety, but denies any suicidal thoughts or tendencies or thoughts of hurting others. Discussed increased risks of depression during and and importance of reporting the development or worsening of symptoms should they occur. Appt made with [facility] for 09/18/2006. Pt smokes 1-1 1/2 packs a day of cigarettes. Discussed risks of smoking during . Advised pt to quit. Pt admits to using marijuana as recently as 1-2 months ago. She denies any use since then. Discussed risks of using drugs during . Hx of major depression 02/21/201604/21 Overview: 02/26/16 - patient states she has her ways of coping as has dealt with a lot in her life (see below), declines counseling or other intervention - KJ 02/20/2015Pt has a history of depression and anxiety that was treated at [facility] at age 17. She was admitted to [facility] for 3 days at age 17 for suicidal thoughts. Her brother in 2006 from suicide.Patient was last when he by suicide. She states she is having anxiety with this because some of these feelings/amotions are resurfacing. Patient has been off medication for anxiety and depression since October. She does not want to go back on medication because it makes me feel worse. She states that she occasionally has suicidal thoughts but she said she would never carry them out. She denies ever having a plan. She states she last had suicidal thoughts a few weeks ago. Patient has had counseling in the past and will call her counselor and schedule an appointment. She declines me doing this for her today.I also gave her the name of Evelyn Méndez at [facility], who works a lot with suicide survivors. Discussed increased risks of depression during and and importance of reporting the development or worsening of symptoms should they occur. TKRN Maternal tobacco use in first trimester 02/21/2016 04/21/2017 Overview: 02/21/2016Pt smokes 6-7 cigarettes a day, down from 1 ppd. Discussed risks of smoking during . Advised pt to quit. TKRN History of congenital heart defect 02/21/2016 04/21/2017 Overview: 02/21/2016Patient states she was born with a hole in her heart. No surgical intervention. TKRN Patient requested diagnostic testing 02/21/2016 04/21/2017 Overview: 02/21/2016Patient desires nuchal ultrasound and CF carrier screening testing. TKRN Adjustment disorder with depressed mood 03/01/2008 04/21/2017 Alcohol abuse, unspecified 03/01/2008 1 03/16/2022 Unspecified high-risk 09/21/2006 09/03/2011 documented as of this encounter (statuses as of 01/14/2023) [facility] History of Past illness Narrative* Problem Noted Date Diagnosed Date Resolved Date Uterine size-date discrepancy 09/22/2016 04/21/2017 History of depression 02/21/20162016 Overview: 02/21/2016Pt has a history of depression and anxiety that was treated at [facility] at age 17. She was admitted to [facility] for 3 days at age 17 for suicidal thoughts. Her brother last week from suicide. He is to be buried in two days. Pt does note some depression and anxiety, but denies any suicidal thoughts or tendencies or thoughts of hurting others. Discussed increased risks of depression during and and importance of reporting the development or worsening of symptoms should they occur. Appt made with [facility] for 09/18/2006. Pt smokes 1-1 1/2 packs a day of cigarettes. Discussed risks of smoking during . Advised pt to quit. Pt admits to using marijuana as recently as 1-2 months ago. She denies any use since then. Discussed risks of using drugs during . Hx of major depression 02/21/201604/21 Overview: 02/26/16 - patient states she has her ways of coping as has dealt with a lot in her life (see below), declines counseling or other intervention - KJ 02/20/2015Pt has a history of depression and anxiety that was treated at [facility] at age 17. She was admitted to [facility] for 3 days at age 17 for suicidal thoughts. Her brother in 2006 from suicide.Patient was last when he by suicide. She states she is having anxiety with this because some of these feelings/amotions are resurfacing. Patient has been off medication for anxiety and depression since October. She does not want to go back on medication because it makes me feel worse. She states that she occasionally has suicidal thoughts but she said she would never carry them out. She denies ever having a plan. She states she last had suicidal thoughts a few weeks ago. Patient has had counseling in the past and will call her counselor and schedule an appointment. She declines me doing this for her today.I also gave her the name of Evelyn Méndez at [facility], who works a lot with suicide survivors. Discussed increased risks of depression during and and importance of reporting the development or worsening of symptoms should they occur. TKRN Maternal tobacco use in first trimester 02/21/2016 04/21/2017 Overview: 02/21/2016Pt smokes 6-7 cigarettes a day, down from 1 ppd. Discussed risks of smoking during . Advised pt to quit. TKRN History of congenital heart defect 02/21/2016 04/21/2017 Overview: 02/21/2016Patient states she was born with a hole in her heart. No surgical intervention. TKRN Patient requested diagnostic testing 02/21/2016 04/21/2017 Overview: 02/21/2016Patient desires nuchal ultrasound and CF carrier screening testing. TKRN Adjustment disorder with depressed mood 03/01/2008 04/21/2017 Alcohol abuse, unspecified 03/01/2008 1 03/16/2022 Unspecified high-risk 09/21/2006 09/03/2011 documented as of this encounter (statuses as of 01/14/2023) [facility] History of Past illness Narrative* Problem Noted Date Diagnosed Date Resolved Date Uterine size-date discrepancy 09/22/2016 04/21/2017 History of depression 02/21/20162016 Overview: 02/21/2016Pt has a history of depression and anxiety that was treated at [facility] at age 17. She was admitted to [facility] for 3 days at age 17 for suicidal thoughts. Her brother last week from suicide. He is to be buried in two days. Pt does note some depression and anxiety, but denies any suicidal thoughts or tendencies or thoughts of hurting others. Discussed increased risks of depression during and and importance of reporting the development or worsening of symptoms should they occur. Appt made with [facility] for 09/18/2006. Pt smokes 1-1 1/2 packs a day of cigarettes. Discussed risks of smoking during . Advised pt to quit. Pt admits to using marijuana as recently as 1-2 months ago. She denies any use since then. Discussed risks of using drugs during . Hx of major depression 02/21/201604/21 Overview: 02/26/16 - patient states she has her ways of coping as has dealt with a lot in her life (see below), declines counseling or other intervention - KJ 02/20/2015Pt has a history of depression and anxiety that was treated at [facility] at age 17. She was admitted to [facility] for 3 days at age 17 for suicidal thoughts. Her brother in 2006 from suicide.Patient was last when he by suicide. She states she is having anxiety with this because some of these feelings/amotions are resurfacing. Patient has been off medication for anxiety and depression since October. She does not want to go back on medication because it makes me feel worse. She states that she occasionally has suicidal thoughts but she said she would never carry them out. She denies ever having a plan. She states she last had suicidal thoughts a few weeks ago. Patient has had counseling in the past and will call her counselor and schedule an appointment. She declines me doing this for her today.I also gave her the name of Evelyn Méndez at [facility], who works a lot with suicide survivors. Discussed increased risks of depression during and and importance of reporting the development or worsening of symptoms should they occur. TKRN Maternal tobacco use in first trimester 02/21/2016 04/21/2017 Overview: 02/21/2016Pt smokes 6-7 cigarettes a day, down from 1 ppd. Discussed risks of smoking during . Advised pt to quit. TKRN History of congenital heart defect 02/21/2016 04/21/2017 Overview: 02/21/2016Patient states she was born with a hole in her heart. No surgical intervention. TKRN Patient requested diagnostic testing 02/21/2016 04/21/2017 Overview: 02/21/2016Patient desires nuchal ultrasound and CF carrier screening testing. TKRN Adjustment disorder with depressed mood 03/01/2008 04/21/2017 Alcohol abuse, unspecified 03/01/2008 1 03/16/2022 Unspecified high-risk 09/21/2006 09/03/2011 documented as of this encounter (statuses as of 04/02/2023) [facility] History of Past illness Narrative* Problem Noted Date Diagnosed Date Resolved Date Uterine size-date discrepancy 09/22/2016 04/21/2017 History of depression 02/21/20162016 Overview: 02/21/2016Pt has a history of depression and anxiety that [facility] at age 17. She was admitted to [facility] for 3 days at age 17 for suicidal thoughts. Her brother last week from suicide. He is to be buried in two days. Pt does note some depression and anxiety, but denies any suicidal thoughts or tendencies or thoughts of hurting others. Discussed increased risks of depression during and and importance of reporting the development or worsening of symptoms should they occur. Appt made with [facility] for 09/18/2006. Pt smokes 1-1 1/2 packs a day of cigarettes. Discussed risks of smoking during . Advised pt to quit. Pt admits to using marijuana as recently as 1-2 months ago. She denies any use since then. Discussed risks of using drugs during . Hx of major depression 02/21/201604/21 Overview: 02/26/16 - patient states she has her ways of coping as has dealt with a lot in her life (see below), declines counseling or other intervention - KJ 02/20/2015Pt has a history of depression and anxiety that was treated at [facility] at age 17. She was admitted to [facility] for 3 days at age 17 for suicidal thoughts. Her brother in 2006 from suicide.Patient was last when he by suicide. She states she is having anxiety with this because some of these feelings/amotions are resurfacing. Patient has been off medication for anxiety and depression since October. She does not want to go back on medication because it makes me feel worse. She states that she occasionally has suicidal thoughts but she said she would never carry them out. She denies ever having a plan. She states she last had suicidal thoughts a few weeks ago. Patient has had counseling in the past and will call her counselor and schedule an appointment. She declines me doing this for her today.I also gave her the name of Evelyn Méndez at [facility], who works a lot with suicide survivors. Discussed increased risks of depression during and and importance of reporting the development or worsening of symptoms should they occur. TKRN Maternal tobacco use in first trimester 02/21/2016 04/21/2017 Overview: 02/21/2016Pt smokes 6-7 cigarettes a day, down from 1 ppd. Discussed risks of smoking during . Advised pt to quit. TKRN History of congenital heart defect 02/21/2016 04/21/2017 Overview: 02/21/2016Patient states she was born with a hole in her heart. No surgical intervention. TKRN Patient requested diagnostic testing 02/21/2016 04/21/2017 Overview: 02/21/2016Patient desires nuchal ultrasound and CF carrier screening testing. TKRN Adjustment disorder with depressed mood 03/01/2008 04/21/2017 Alcohol abuse, unspecified 03/01/2008 1 03/16/2022 Unspecified high-risk 09/21/2006 09/03/2011 documented as of this encounter (statuses as of 04/09/2023) [facility] History of Past illness Narrative* Problem Noted Date Diagnosed Date Resolved Date Uterine size-date discrepancy 09/22/2016 04/21/2017 History of depression 02/21/20162016 Overview: 02/21/2016Pt has a history of depression and anxiety that was treated at [facility] at age 17. She was admitted to [facility] for 3 days at age 17 for suicidal thoughts. Her brother last week from suicide. He is to be buried in two days. Pt does note some depression and anxiety, but denies any suicidal thoughts or tendencies or thoughts of hurting others. Discussed increased risks of depression during and and importance of reporting the development or worsening of symptoms should they occur. Appt made with [facility] for 09/18/2006. Pt smokes 1-1 1/2 packs a day of cigarettes. Discussed risks of smoking during . Advised pt to quit. Pt admits to using marijuana as recently as 1-2 months ago. She denies any use since then. Discussed risks of using drugs during . Hx of major depression 02/21/201604/21 Overview: 02/26/16 - patient states she has her ways of coping as has dealt with a lot in her life (see below), declines counseling or other intervention - KJ 02/20/2015Pt has a history of depression and anxiety that was treated at [facility] at age 17. She was admitted to [facility] for 3 days at age 17 for suicidal thoughts. Her brother in 2006 from suicide.Patient was last when he by suicide. She states she is having anxiety with this because some of these feelings/amotions are resurfacing. Patient has been off medication for anxiety and depression since October. She does not want to go back on medication because it makes me feel worse. She states that she occasionally has suicidal thoughts but she said she would never carry them out. She denies ever having a plan. She states she last had suicidal thoughts a few weeks ago. Patient has had counseling in the past and will call her counselor and schedule an appointment. She declines me doing this for her today.I also gave her the name of Evelyn Méndez at [facility], who works a lot with suicide survivors. Discussed increased risks of depression during and and importance of reporting the development or worsening of symptoms should they occur. TKRN Maternal tobacco use in first trimester 02/21/2016 04/21/2017 Overview: 02/21/2016Pt smokes 6-7 cigarettes a day, down from 1 ppd. Discussed risks of smoking during . Advised pt to quit. TKRN History of congenital heart defect 02/21/2016 04/21/2017 Overview: 02/21/2016Patient states she was born with a hole in her heart. No surgical intervention. TKRN Patient requested diagnostic testing 02/21/2016 04/21/2017 Overview: 02/21/2016Patient desires nuchal ultrasound and CF carrier screening testing. TKRN Adjustment disorder with depressed mood 03/01/2008 04/21/2017 Alcohol abuse, unspecified 03/01/2008 1 03/16/2022 Unspecified high-risk 09/21/2006 09/03/2011 documented as of this encounter (statuses as of 04/10/2023) [facility] Viral illness- Primary Unspecified viral infection, in conditions classified elsewhere and of unspecified site Cough Pelvic and perineal pain Unspecified symptom associated with female genital organs Abnormal uterine bleeding (AUB) Pelvic pain in female Unspecified symptom associated with female genital organs Intramural leiomyoma of uterus documented [facility] Diagnosis Punctate keratitis, bilateral- Primary Regular astigmatism of both eyes Regular astigmatism Pelvic and perineal pain Unspecified symptom associated with female genital organs Abnormal uterine bleeding (AUB) Pelvic pain in female Unspecified symptom associated with female genital organs Intramural leiomyoma of uterus [facility] Diagnosis Acute sinusitis, recurrence not specified, unspecified location- Primary Pelvic and perineal pain Unspecified symptom associated with female genital organs Abnormal uterine bleeding (AUB) Pelvic pain in female Unspecified symptom associated with female genital organs Intramural leiomyoma of uterus [facility]* Diagnosis Exposure to 2018 novel coronavirus- Primary Nausea and vomiting, unspecified vomiting type Pelvic and perineal pain Unspecified symptom associated with female genital organs Abnormal uterine bleeding (AUB) Pelvic pain in female Unspecified symptom associated with female genital organs Intramural leiomyoma of uterus [facility]* Diagnosis Educational circumstances- Primary Educational circumstance Pelvic and perineal pain Unspecified symptom associated with female genital organs Abnormal uterine bleeding (AUB) Pelvic pain in female Unspecified symptom associated with female genital organs Intramural leiomyoma of uterus [facility]* Diagnosis Pelvic pain in female Unspecified symptom associated with female genital organs Abnormal uterine bleeding Unspecified disorder of menstruation and other abnormal bleeding from female genital tract Fibroids Leiomyoma of uterus, unspecified Pelvic and perineal pain Unspecified symptom associated with female genital organs Abnormal uterine bleeding (AUB) Pelvic pain in female Unspecified symptom associated with female genital organs Intramural leiomyoma of uterus [facility] Diagnosis Post-operative state- Primary Other postprocedural status S/P hysterectomy Acquired absence of both cervix and uterus [facility]* Diagnosis Urinary frequency- Primary [facility] Diagnosis Mass of axillary tail of left breast- Primary [facility]* Diagnosis Encounter for gynecological examination (general) (routine) without abnormal findings- Primary OAB (overactive bladder) Hypertonicity of bladder [facility] Diagnosis Mass of axillary tail of left breast [facility] Diagnosis Mass of axillary tail of left breast [facility] Diagnosis Acute cough- Primary [facility]* Diagnosis Neck pain- Primary Cervicalgia Muscle tension pain Migraine without aura and without status migrainosus, not intractable Migraine without aura, without mention of intractable migraine without mention of status migrainosus Increased frequency of urination Urinary frequency Hyperlipidemia, mixed Mixed hyperlipidemia Screening for diabetes mellitus documented in this encounter [facility] for referral (narrative)* Diagnostic Procedure Only (Routine) - Authorized Specialty Diagnoses / Procedures Referred By Jonah t Referred To Contact [facility] Diagnoses Mass of axillary tail of left breast Procedures [facility] LEFT DIAGNOSTIC MAMMOGRAPHY COMPUTER-AIDED DETCJ UNI Lizabeth Park APRN.STEELSCOPE OPERATOR [address] [place] [address] [facility] [address] [place] [address] Referral ID Status Reason Start Date Expiration Date Visits Requested Visits Authorized [id number] Authorized Auto-Generat ed Referral 12/18/2022 01/17/2024 1 1 * Diagnostic Procedure Only (Routine) - Authorized Specialty Diagnoses / Procedures Referred By Jonah t Referred To Contact [facility] Diagnoses Mass of axillary tail of left breast Procedures US BREAST LTD LEFT US BREAST UNI REAL TIME WITH IMAGE LIMITED Lizabeth Park APRN.STEELSCOPE OPERATOR [address] [place] [address] [facility] [address] [place] [address] Referral ID Status Reason Start Date Expiration Date Visits Requested Visits Authorized [id number] Authorized Auto-Generat ed Referral 12/18/2022 01/17/2024 1 1 [facility] for referral (narrative)* Diagnostic Procedure Only (Routine) - Closed Specialty Diagnoses / [facility] Referred To Contact [facility] Diagnoses Mass of axillary tail of left breast Procedures US BREAST LTD LEFT US BREAST UNI REAL TIME WITH IMAGE LIMITED Lizabeth Park APRN.STEELSCOPE OPERATOR [address] [place] [address] [facility] [address] [place] [address] Referral ID Status Reason Start Date Expiration Date V isits Requested Visits Authorized [id number] Closed Auto-Generate d Referral 12/18/2022 01/17/2024 1 1 [facility] for referral (narrative)* Diagnostic Procedure Only (Routine) - Closed Specialty Diagnoses / Procedures Referred By Contac t Referred To Contact [facility] Diagnoses Neck pain Procedures XR CERV OTHER 4V AP/LAT/OBL RADEX SPINE CERVICAL 4 OR 5 VIEWS Cyndi Trujillo APRN.STEELSCOPE OPERATOR [address] [place] [address] [place] [address] Referral ID Status Reason Start Date Expiration Date V isits Requested Visits Authorized [id number] Closed Auto-Generate d Referral 04/09/2023 05/08/2024 1 1 [facility] for visit Narrative* Diagnostic Procedure Only (Routine) - Closed Specialty Diagnoses / Procedures Referred By Contac t Referred To Contact [facility] Diagnoses Mass of axillary tail of left breast Procedures [facility]GAN DIAGNOSTIC BILATERAL DIAGNOSTIC MAMMOGRAPHY COMPUTER-AIDED DETCJ Lizabeth Park APRN.STEELSCOPE OPERATOR [address] [place] [address] [facility] [address] [place] [address] Referral ID Status Reason Start Date Expiration Date V isits Requested Visits Authorized [id number] Closed Auto-Generate d Referral 12/25/2022 01/23/2024 [address] [facility] Medications Administered Section Inactive Administered Medications - up to 3 most recent administrations Medication Order MAR Action Action Date Dose Rate Site keTORolac 60 mg injection (TORADOL) 60 mg, INTRAMUSCULAR, ONCE, 1 dose, On Krista 05/30/21 at 1330, Ketorolac (Toradol) is indicated for the short-term (up to 5 days) management of moderately severe acute pain. Continuation of ketorolac (Toradol) beyond 5 days increases the risk of developing serious adverse events. Please verify the duration of therapy for ketorolac (Toradol)., If ordered PRN for pain, patient/guardian may elect to receive this medication for higher pain levels INSTEAD of the opioid, if preferred: Yes Given 05/30/2021 1:12 PM EDT 60 mg Buttocks, Right Health Concerns Infection Onset Date Last Indicated Resolved Time COVID-19 Rule-Out 05/30/2021 05/30/2021 Infection Onset Date Last Indicated Resolved Time Influenza 04/02/2023 04/02/2023 Summary Purpose Family History No Family History Records Found Advance Directives No Advanced Directives Records Found Additional Source Comments Source Comments (unrecognize d section and content) In the event this informatio n is protected by the Federal Confidentiality of Alcohol and Drug Abuse Patient Records regulations: The Federal rules restrict any use of the information to criminally investigate or prosecute any alcohol or drug abuse patient.[facility] the event this information is protected by the Federal Confidentiality of Alcohol and Drug Abuse Patient Records regulations: The Federal rules restrict any use of the information to criminally investigate or prosecute any alcohol or drug abuse patient.[facility] the event this information is protected by the Federal Confidentiality of Alcohol and Drug Abuse Patient Records regulations: The Federal rules restrict any use of the information to criminally investigate or prosecute any alcohol or drug abuse patient.[facility] the event this information is protected by the Federal Confidentiality of Alcohol and Drug Abuse Patient Records regulations: The Federal rules restrict any use of the information to criminally investigate or prosecute any alcohol or drug abuse patient.[facility] the event this information is protected by the Federal Confidentiality of Alcohol and Drug Abuse Patient Records regulations: The Federal rules restrict any use of the information to criminally investigate or prosecute any alcohol or drug abuse patient.[facility] the event this information is protected by the Federal Confidentiality of Alcohol and Drug Abuse Patient Records regulations: The Federal rules restrict any use of the information to criminally investigate or prosecute any alcohol or drug abuse patient.[facility] the event this information is protected by the Federal Confidentiality of Alcohol and Drug Abuse Patient Records regulations: The Federal rules restrict any use of the information to criminally investigate or prosecute any alcohol or drug abuse patient.[facility] the event this information is protected by the Federal Confidentiality of Alcohol and Drug Abuse Patient Records regulations: The Federal rules restrict any use of the information to criminally investigate or prosecute any alcohol or drug abuse patient.[facility] the event this information is protected by the Federal Confidentiality of Alcohol and Drug Abuse Patient Records regulations: The Federal rules restrict any use of the information to criminally investigate or prosecute any alcohol or drug abuse patient.[facility] the event this information is protected by the Federal Confidentiality of Alcohol and Drug Abuse Patient Records regulations: The Federal rules restrict any use of the information to criminally investigate or prosecute any alcohol or drug abuse patient.[facility] the event this information is protected by the Federal Confidentiality of Alcohol and Drug Abuse Patient Records regulations: The Federal rules restrict any use of the information to criminally investigate or prosecute any alcohol or drug abuse patient.[facility] the event this information is protected by the Federal Confidentiality of Alcohol and Drug Abuse Patient Records regulations: The Federal rules restrict any use of the information to criminally investigate or prosecute any alcohol or drug abuse patient.[facility] the event this information is protected by the Federal Confidentiality of Alcohol and Drug Abuse Patient Records regulations: The Federal rules restrict any use of the information to criminally investigate or prosecute any alcohol or drug abuse patient.[facility] the event this information is protected by the Federal Confidentiality of Alcohol and Drug Abuse Patient Records regulations: The Federal rules restrict any use of the information to criminally investigate or prosecute any alcohol or drug abuse patient.[facility] the event this information is protected by the Federal Confidentiality of Alcohol and Drug Abuse Patient Records regulations: The Federal rules restrict any use of the information to criminally investigate or prosecute any alcohol or drug abuse patient.[facility] the event this information is protected by the Federal Confidentiality of Alcohol and Drug Abuse Patient Records regulations: The Federal rules restrict any use of the information to criminally investigate or prosecute any alcohol or drug abuse patient.[facility] the event this information is protected by the Federal Confidentiality of Alcohol and Drug Abuse Patient Records regulations: The Federal rules restrict any use of the information to criminally investigate or prosecute any alcohol or drug abuse patient.[facility] the event this information is protected by the Federal Confidentiality of Alcohol and Drug Abuse Patient Records regulations: The Federal rules restrict any use of the information to criminally investigate or prosecute any alcohol or drug abuse patient.[facility] the event this information is protected by the Federal Confidentiality of Alcohol and Drug Abuse Patient Records regulations: The Federal rules restrict any use of the information to criminally investigate or prosecute any alcohol or drug abuse patient.[facility] the event this information is protected by the Federal Confidentiality of Alcohol and Drug Abuse Patient Records regulations: The Federal rules restrict any use of the information to criminally investigate or prosecute any alcohol or drug abuse patient.[facility] the event this information is protected by the Federal Confidentiality of Alcohol and Drug Abuse Patient Records regulations: The Federal rules restrict any use of the information to criminally investigate or prosecute any alcohol or drug abuse patient.[facility] Reason for Visit (unrecogniz ed section and content) Reason Comments Sore Throat cough, body aches, f atigue x10 days Reason Comments Dry Eye Syndrome Follow Up Reason Comments Nasal Congestion Ochoa, throat pain x13 days. Reason Comments Vomiting OCHOA, sore throat, pos sible fever x 1 day Reason Onset Date Comments Pre-Op Teaching 02/11/2022 Reason Comments Pre-Op Visit Reason Comments Pain Reason Comments Post Op Reason Comments Vaginal Bleeding Reason Comments Schedule Surgery Reason Comments Urinary Frequency Frequency, urgency, and blood in urine x 2 days Reason Comments Breast pain Reason Comments Well Woman Reason Comments Radiology US Specialty Diagnoses / Procedures Referred By Contac t Referred To Contact [facility] Diagnoses Mass of axillary tail of left breast Procedures US BREAST LTD LEFT US BREAST UNI REAL TIME WITH IMAGE LIMITED Linwood, Lizabeth, STEWARD/STEWARDESS BATH.DONTAE [address] [place] [address] [facility] [address] [place] [address] Referral ID Status Reason Start Date Expiration Date V isits Requested Visits Authorized [id number] Closed Auto-Generate d Referral 12/18/2022 01/17/2024 1 1 Reason Comments Cough Congestion, drainage , OCHOA x 3days Reason Comments Acute Visit Rt shoulder pain and numbness. Tranfer from Yumiko Zacarias Reason Comments Results Xray Care Teams (unrecognized sec tion and content) Polymer Chemist Relationship Specialty Start Date End Date Jomar Zacarias APRN.[facility] [address] [place], [place] [id number] PCP - General Family Practice 06/30/19 Polymer Chemist Relationship Specialty Start Date End Date Jomar Zacarias APRN.[facility] [address] [place] [address] PCP - General Family Practice 06/30/19 Polymer Chemist Relationship Specialty Start Date End Date Rodney Benavides MD [address] [place], [place] [id number] PCP - General Family Medicine 04/09/23 Polymer Chemist Relationship Specialty Start Date End Date Rodney Benavides MD [address] [place], [place] [id number] PCP - General Family Medicine 04/09/23 INFORMATION SOURCE (unrecogn ized section and content) FOR RECORDS PERTAINING TO PATIENTS WHO ARE OR HAVE BEEN ENROLLED IN A CHEMICAL DEPENDENCY/SUBSTANCEABUSE PROGRAM, SOME INFORMATION MAY BE OMITTED. This clinical summary was aggregated from multiple sources. Caution should be exercised in using it in the provision of clinical care. This summary normalizes information from multiple sources, and as a consequence, information in this document may materially change the coding, format and clinical context of patient data. In addition, data may be omitted in some cases. CLINICAL DECISIONS SHOULD BE BASED ON THE PRIMARY CLINICAL RECORDS. [facility]. provides no warranty or guarantee of the accuracy or completeness of information in this document.
[2023-04-11 15:47] VITALS: BP 115/57; PULSE 72; RESP 16; TEMP 36.6; O2SAT 97
--- NOTE | 2023-04-11 19:51 | EDS_ITS ---
HPI History of Present Illness Chief Complaint: Back Narrative Narrative: 37-year-old female with neck pain and numbness and tingling into her right index finger and thumb. Patient states this been ongoing for months. She saw her nurse practitioner and was started on prednisone which is not helping. She was told to go get massage therapy which also has not worked. Her nurse practitioner told her that if this was not working to go to the emergency room. Patient denies any trauma. She has been doing muscle relaxers and prednisone without any relief. She tried Tylenol and ibuprofen which has not helped either. PFSH PFSH Home Medications ibuprofen 200 mg capsule 200 mg PO PRN PRN Pain 05/25/17 [History Last Taken Unknown] [id number]-tmxkftdzsfbxc-ochytqxk 50 mg-325 mg-40 mg tablet 1 tab PO Q4H PRN PRN Headache #20 tabs 12/09/19 [Rx Last Taken Unknown] gabapentin 300 mg capsule 300 mg PO DAILY #20 caps 04/11/23 [Rx Last Taken Unknown] Allergy/AdvReac Type Severity Reaction Status Date / Time bacitracin Allergy Rash Verified 04/11/23 15:08 [From Neosporin ([id number])] neomycin Allergy Rash Verified 04/11/23 15:08 [From Neosporin ([id number])] Penicillins Allergy Hives Verified 04/11/23 15:08 polymyxin B Allergy Rash Verified 04/11/23 15:08 [From Neosporin ([id number])] adhesive AdvReac Rash Verified 04/11/23 15:08 hydrocodone [From Vicodin] AdvReac Vomiting Verified 04/11/23 15:08 Social History Smoking Status: Current every day smoker tobacco type: e-cigarettes ROS ROS ED Constitutional Constitutional ED: Denies chills, fever(s) or sweats Eyes Eyes: Denies blurry vision or change in vision ENT ENT ED: Denies ear pain or sore throat Cardiovascular Cardiovascular: Denies chest pain, palpitations or racing heartbeat Respiratory/Chest Respiratory/Chest: Denies cough, dyspnea or sputum Gastrointestinal Gastrointestinal: Denies abdominal pain, constipation, diarrhea, nausea or vomiting Genitourinary Genitourinary ED: Denies dysuria, hematuria or urinary frequency Musculoskeletal Musculoskeletal: Reports neck pain; Denies arthralgias or myalgias Integumentary Denies abscess, Abrasions or rash Neurologic Neurologic: Denies headache(s), paresthesias or weakness Psychiatric Psychiatric: Denies anxiety, depression, suicidal ideation or suicidal thoughts Endocrine Endocrinology: Denies polydipsia or polyuria EXAM Physical Exam Const Vital Signs: 04/11/23 15:09 04/11/23 15:47 Temperature 98.2 F 97.8 F Temperature Source Temporal Pulse Rate 74 72 Respiratory Rate 14 16 Blood Pressure 115/77 115/57 L Blood Pressure Mean 89 76 Pulse Ox 98 97 Oxygen Delivery Method Room Air Positive well nourished General Appearance ED: NAD HEENT atraumatic and trauma Eyes PERRL and EOMs intact bilaterally Neck full ROM Neck Narrative: No midline spinal tenderness, deformity, step-off. There is right-sided paraspinal musculature tenderness. Patient symptoms worse with flexion of the neck. Extension, rotation does not worsen the symptoms. There is focal tenderness in the right trapezius region. Cardio regular rhythm Rate: regular rate Neuro oriented x3 and CN's II-XII intact bilaterally Sensorium / Orientation: alert Motor Exam: strength 5/5 throughout Psych mental status grossly normal Skin no rashes or lesions noted and no wounds MDM MDM MDM Narrative Medical decision making narrative: Patient presenting with neck pain and numbness and tingling of the right index and thumb. I suspect she has cervical radiculopathy. I counseled her on this. I recommended that she follow-up with her nurse practitioner and she will need referral for physical therapy and/or referral to a specialist. Patient request something for pain so we did start her on gabapentin today as she is complaining of burning pain into her right upper extremity. Patient still use Tylenol and ibuprofen. Return precautions discussed. Impression: 1. Cervical radiculopathy Lab Data Attestation: I reviewed the patient's lab results. Discharge Plan Triage Chief Complaint: Back ED Provider: Maximilian Flannery Dx/Rx/DC Orders Instructions: ED Radiculopathy, Cervical Prescriptions: New gabapentin 300 mg capsule 300 mg PO DAILY Qty: 20 0RF Rx Instructions: 300 mg p.o. daily x 2 days, then 300 mg twice daily x 2 days, then 300 mg 3 times daily No Action ibuprofen 200 MG capsule 200 mg PO PRN PRN (Reason: Pain) [id number] 1 TABLET tablet 1 tab PO Q4H PRN PRN (Reason: Headache) Qty: 20 0RF Primary Care Provider: Cyndi Trujillo Referrals: Jomar Zacarias NP, [facility] [employer] [Non-Staff] - Disposition Disposition: Home, Self Care Discharge Date/Time: 04/11/23 15:51
== END 2023-04-11 15:51 | disposition home or self-care (01) ==
PROVIDERS: Emergency Provider Student in an Organized Health Care Education/Training Program; PCP Nurse Practitioner Family; Visit Provider Student in an Organized Health Care Education/Training Program
DX: M54.12 Radiculopathy, cervical region (principal); F17.290 Nicotine dependence, other tobacco product, uncomplicated
CPT/HCPCS: 99282